=== PATIENT | male | born 1950 | race Caucasian/White ===

== ENCOUNTER → 2017-10-19 08:55 | Outpatient (CLI) | payer MEDICARE, MEDICAID, SELFPAY ==
[2017-10-19 12:33] LABS: Absolute Lymphocyte Count 1.25 X10^3/ul (0.83-4.51); Absolute Neutrophil Count 4.1 X10^3/uL (2.0-7.7); Basophil# 0.02 X10^3/uL; Basophil% 0.3 % (0-1); Eosinophil# 0.11 X10^3/uL; Eosinophils% 1.9 % (0-5); Hematocrit 36.4 % (40-54); Hemoglobin 12.1 g/dl (13.0-16.5); Lymphocyte # 1.25 X10^3/ul (4.0); Lymphocyte % 21.6 % (19-41); Mean Corp Hgb Conc 33.2 g/gl (32-36); Mean Corpuscular Hgb 28.9 pg (27.0-32.0); Mean Corpuscular Volume 86.9 fL (80-94); Mean Platelet Vol. 12.4 fl (6.2-12.0); Monocyte# 0.32 X10^3/uL; Monocyte% 5.5 % (0-10); Neutrophil # 4.08 X10^3/uL (2.7-7.7); Neutrophil % 70.5 % (47-70); Platelet Count 117 K/mm3 (150-450); RBC Distribution Width CV 13.3 % (11.6-14.6); RBC Distribution Width SD 41.2 fl (35.1-43.9); Red Blood Count 4.19 M/mm3 (4.6-6.2); White Blood Count 5.8 K/mm3 (4.4-11.0)
[2017-10-19 12:40] LABS: POSITIVE COUNT NO; POSITIVE DIFFERENTIAL NO; POSITIVE MORPHOLOGY NO
[2017-10-19 12:58] LABS: ALB/GLOB Ratio 1.2 RATIO (0.9-2.4); AST(SGOT) 12 U/L (15-37); Alanine Aminotransfer ALT/SGPT 24 U/L (16-61); Albumin, Serum 3.6 g/dL (3.2-5.0); Alkaline Phosphatase 113 U/L (45-117); Anion Gap 9 (5-15); BUN 12 mg/dL (7-18); BUN/Creat Ratio 14.7 RATIO (10-20); Calcium,Total 8.9 mg/dL (8.5-10.1); Chloride 99 mmol/L (98-107); Creatinine, Serum 0.82 mg/dL (0.70-1.30); EST Glomerular Filtration Rate 100 mL/min (>60); Est Glom Filt Rate - Afr Amer 121 mL/min (>60); Glucose 179 mg/dL (70-110); Potassium 4.3 mmol/L (3.5-5.1); Protein, Total 6.6 g/dL (6.4-8.2); Sodium Level 134 mmol/L (136-145); Thyroid Stim Hormone (TSH) 1.09 uIU/mL (0.358-3.74)
[2017-10-21 07:45] LABS: Hep C Antibodies <0.1 s/co ratio (0.0-0.9)
== END ==
PROVIDERS: Family Provider Family Medicine Geriatric Medicine; PCP Family Medicine Geriatric Medicine; Visit Provider Family Medicine Geriatric Medicine
DX: E11.9 Type 2 diabetes mellitus without complications (principal); I10 Essential (primary) hypertension; Z12.5 Encounter for screening for malignant neoplasm of prostate; Z13.89 Encounter for screening for other disorder
CPT/HCPCS: 36415; 80053; 84153; 84443; 85025; 86803; G0103

== ENCOUNTER → 2017-10-30 07:37 | Outpatient (CLI) | payer MEDICARE, MEDICAID, SELFPAY ==
--- NOTE | 2017-10-30 07:41 | RAD_ITS ---
STUDY: X-RAY - ESOPHAGUS (BARIUM SWALLOW) WITH FLUOROSCOPY REASON FOR EXAM: Male, 67 years old. Dysphagia for solids. TECHNIQUE: 14 view(s) of the esophagus were obtained following swallowing of barium. FLUOROSCOPY TIME (if supplied): (0:47) minutes/seconds COMPARISON: None. FINDINGS: There is no demonstrated esophageal foreign body. There is no demonstrated stricture or mucosal abnormality. Normal gastroesophageal junction, without a demonstrated hiatal hernia. There is dilatation of the entire stomach. Decreased peristaltic activity. The patient ingested a 12 mm tablet of barium without any difficulty. No evidence of gastroesophageal reflux. There is atherosclerotic tortuosity of the aortic arch and descending thoracic aorta. Normal visualized pulmonary parenchyma. There are diffuse degenerative changes of the visualized thoracic spine. RAD/Esophagus Only IMPRESSION: Dilated esophagus. No evidence of obstruction. No evidence of gastroesophageal reflux. Electronically Signed: Manuelito Castaneda MD at 9:01 EST Tel [phone], Service support ,
== END ==
PROVIDERS: Family Provider Family Medicine Geriatric Medicine; PCP Family Medicine Geriatric Medicine; Visit Provider Family Medicine Geriatric Medicine
DX: K22.8 Other specified diseases of esophagus (principal); R13.10 Dysphagia, unspecified
CPT/HCPCS: 74220

== ENCOUNTER → 2017-11-02 13:16 | Outpatient (CLI) | payer MEDICARE, MEDICAID, SELFPAY ==
--- NOTE | 2017-11-02 13:18 | RAD_ITS ---
STUDY: SWALLOWING STUDY REASON FOR EXAM: Male, 67 years old. Dysphagia. TECHNIQUE: The examination was performed with Speech Pathology in attendance. Under fluoroscopic observation, the patient ingested thin barium, thick barium, barium pudding, and barium coated cracker. FLUOROSCOPY TIME: 2:15 minutes/seconds. 1907 fluoroscopic spot images were obtained. RADIOLOGIST INVOLVEMENT: Radiologist was present and providing direct supervision. COMPARISON: None. FINDINGS: The following was observed during swallowing of the various mixtures of barium: Thin Barium: There was no evidence of aspiration or laryngeal penetration. Barium Pudding: There was no evidence of aspiration or laryngeal penetration. Barium Coated Cracker: There was no evidence of aspiration or laryngeal penetration. RAD/Swallowing Function w/Video IMPRESSION: Normal tailored barium swallow study. No evidence of increased risk for aspiration. The swallow study findings were discussed with the patient by the speech pathologist at the conclusion of the examination. Please see speech pathology report for more information and recommendations. Electronically Signed: Manuelito Castaneda MD at 14:05 EST Tel [phone], Service support ,
--- NOTE | 2017-11-02 13:30 | SP.MBSS_ITS ---
PRIMARY / SECONDARY DIAGNOSIS: dysphagia (R13.10) REFERRING PHYSICIAN: Dr. Bob Obrien MD CURRENT DIET: regular textures, thin liquids DENTITION: missing dentition MENTAL STATUS: impaired RESPIRATORY STATUS: O2 via room air PREVIOUS MODIFIED BARIUM SWALLOW STUDY: REASON FOR REFERRAL: Patient is a 67 year old male referred for a modified barium swallow (MBS) study to objectively assess the Patients oropharyngeal swallow function under fluoroscopy secondary to reported dysphagia with solid textures, with Patient reporting sensation of stasis / globus sensation post deglutition of larger bites of solid textures, reports improvement with reduction in bolus size ( habitual large bites and sips reported). 10/30/2017 barium swallow study revealed a dilated esophagus; no evidence of obstruction; no evidence of gastroesophageal reflux. MEDICAL HISTORY: Anxiety, arthritis, depression, type II diabetes mellitus, hearing loss, hyperlipidemia, hypertension, hypothyroidisms, mental retardation unspecified, petit mal intractable epilepsy, seizures, vision loss. STUDY FINDINGS: Patient participated in a Modified Barium Swallow (MBS) study on 11/02/2017. Dr. Castaneda was the radiologist present for this evaluation. This study was recorded in the lateral view and images were sent to PACs for storage. The following consistencies were presented to this patient for analysis of oropharyngeal swallow function: thin liquids, pudding, and a regular textured, Tiffany Doone cookie. Results of the MBS are as follows: PENETRATION / ASPIRATION SCALE (CESPEDES): 1 = does not enter airway 2 = enters airway/above vocal folds/ejected 3 = enters airway/above vocal folds/not ejected 4 = enters airway/contacts vocal folds/ejected 5 = enters airway/contacts vocal folds/not ejected 6 = enters airway/below vocal folds/ejected 7 = enters airway/below vocal folds/not ejected despite effort 8 = enters airway/below vocal folds/no effort PENETRATION / ASPIRATION SCALE (SCORE): Thin liquid - 5 mL tsp.: 1 Thin liquids via straw (sequential swallows): 2 Thin liquids via straw (sequential swallows): 2 Thin liquids via cup (single sip): 1 Thin liquids via cup (single sip): 1 Thin liquids via cup (single sip): 1 Thin liquids via straw (single sip): 1 Thin liquids via straw (single sip): 1 Pudding via spoon: 1 Regular textured cookie: 1 Thin liquids via cup (sequential swallows): 2 IMPRESSION: DIAGNOSIS: mild oropharyngeal dysphagia (R13.12) ORAL PHASE CHARACTERIZED BY: LABIAL SEAL: no labial escape TONGUE CONTROL DURING BOLUS MANIPULATION: cohesive bolus between tongue to palatal seal BOLUS PREPARATION / MASTICATION: slow prolonged chewing/mashing with complete recollection BOLUS TRANSPORT / LINGUAL MOTION: mild repetitive/disorganized tongue motion ORAL RESIDUE: complete oral clearance PHARYNGEAL PHASE CHARACTERIZED BY: INITIATION OF PHARYNGEAL SWALLOW: bolus head at posterior laryngeal surface of epiglottis at first hyoid excursion SOFT PALATE ELEVATION: no bolus between soft palate and pharyngeal wall LARYNGEAL ELEVATION: partial superior movement of thyroid cartilage/partial approximation of arytenoids cartilage to epiglottic petiole ANTERIOR HYOID EXCURSION: partial anterior movement EPIGLOTTIC MOVEMENT: complete epiglottic inversion LARYNGEAL VESTIBULE CLOSURE AT HEIGHT OF SWALLOW: intermittent incomplete laryngeal vestibule closure with narrow column of air/contrast in laryngeal vestibule PHARYNGEAL STRIPPING WAVE: pharyngeal stripping wave present / complete PHARYNGOESOPHAGEAL SEGMENT OPENING: complete distension and complete duration with no obstruction of flow TONGUE BASE RETRACTION: trace column of contrast between tongue base and posterior pharyngeal wall PHARYNGEAL RESIDUE: trace residue within or on pharyngeal structures ESOPHAGEAL PHASE CHARACTERIZED BY: ESOPHAGEAL BOLUS CLEARANCE IN THE UPRIGHT POSITION: complete clearance; esophageal coating EFFECTS OF TREATMENT STRATEGIES ATTEMPTED: Reduced bolus size = effective DIET TEXTURE RECOMMENDATIONS: Will recommend a regular-soft textured, thin liquid diet. COMPENSATORY STRATEGIES RECOMMENDED: Supervision, cut into bite sized pieces, reduced bolus volume, reduced rate of intake, seated upright at 90 degrees during PO intake, remain upright for 30-60 minutes post meal (GERD precaution), medications with liquid chaser. INTERPRETATION OF RESULTS: Patient presents with mild oropharyngeal dysphagia (R13.12) likely associated with baseline intellectual disability. Oral phase primarily marked by mastication inefficiency (mild); and suboptimal lingual control (mild) with noted mild lingual festinations. Pharyngeal phase primarily marked by delayed pharyngeal swallow onset timing resulting in suboptimal bolus location upon swallow onset; and reduced closure of the airway during deglutition attributed to reduced laryngeal elevation and anterior hyoid excursion resulting in poor laryngeal vestibule closure / pressure and higher risk of aspiration during sequential swallows. All deficits ameliorated with bolus volume adjustments. Noted severe kyphosis impacting swallow function, with laryngeal vestibule opening directly inferior to the bolus body upon pharyngeal transit. Reported coughing during solid bolus intake likely associated with baseline difficulty managing bolus volume, would suspect reduction in bolus toughness and volume ( cut into bite sized pieces) would sufficiently address the Patients subjective reports. No aspiration appreciated throughout trials, unable to definitively rule out silent aspiration. RECOMMENDATIONS: Patients caregiver present, able to comprehend and express recommended intake precautions detailed above with sufficient detail to suggest high likelihood of compliance. Provided brief overview of signs and symptoms of aspiration, with recommendations for the Patient / Patients caregiver to further discuss symptoms with PCP. No further skilled speech-language services warranted at this time targeting dysphagia. ADDITIONAL COMMENTS/RECOMMENDATIONS: Results and recommendations were discussed with the Patient immediately following MBS completion, with the Patient verbalizing understanding and agreement with all recommendations and education provided. IMAGE COUNT: [id number] G-CODES: SWALLOWING [id number] Current Status: CI SWALLOWING G8997 Goal Status: CI SWALLOWING G8998 Discharge Status: CI
== END ==
PROVIDERS: Family Provider Family Medicine Geriatric Medicine; PCP Family Medicine Geriatric Medicine; Visit Provider Family Medicine Geriatric Medicine
DX: R13.10 Dysphagia, unspecified (principal)
CPT/HCPCS: 74230; 92611; G8996; G8997; G8998

== ENCOUNTER → 2018-01-05 11:28 | Outpatient (CLI) | payer MEDICARE, MEDICAID, SELFPAY ==
[2018-01-05 13:46] LABS: Anion Gap 9 (5-15); BUN 15 mg/dL (7-18); BUN/Creat Ratio 19.3 RATIO (10-20); Calcium,Total 8.9 mg/dL (8.5-10.1); Chloride 100 mmol/L (98-107); Creatinine, Serum 0.78 mg/dL (0.70-1.30); EST Glomerular Filtration Rate 106 mL/min (>60); Est Glom Filt Rate - Afr Amer 128 mL/min (>60); Glucose 165 mg/dL (74-106); PSA,Total- Diagnostic 0.22 ng/mL (0.0-4.0); Potassium 4.5 mmol/L (3.5-5.1); Sodium Level 138 mmol/L (136-145)
== END ==
PROVIDERS: Family Provider Family Medicine Geriatric Medicine; PCP Family Medicine Geriatric Medicine; Visit Provider Urology
DX: N40.0 Benign prostatic hyperplasia without lower urinary tract symptoms (principal)
CPT/HCPCS: 36415; 80048; 84153

== ENCOUNTER → 2018-01-08 13:38 | Outpatient (CLI) | payer MEDICARE, MEDICAID, SELFPAY ==
--- NOTE | 2018-01-08 13:40 | US_ITS ---
STUDY: RENAL ULTRASOUND - COMPLETE REASON FOR EXAM: Male, 67 years old. BPH TECHNIQUE: Ultrasound evaluation of the kidneys was performed with real-time and static paris-scale imaging. COMPARISON: None. FINDINGS: RIGHT KIDNEY: Normal location of the right kidney, which is normal in size. The right kidney measures 13.5 x 4.5 x 4 cm. There is a normal cortex of the right kidney. The renal cortex measures 1 cm. There is a 3.5 x 2 x 3 cm upper, and a 2.5 x 2.3 x 2.3 lower pole simple appearing cyst. There are no right renal calculi. There is no right hydronephrosis. DISTAL RIGHT URETER: There is non-visualization of the distal right ureter. There is no demonstrated right ureterovesical junction calculus. There is a visualized right ureteral jet. LEFT KIDNEY: Normal location of the left kidney, which is normal in size. The left kidney measures 12 x 5 x 6.5 cm. There is a normal cortex of the left kidney. The renal cortex measures 1.8 cm. There is a left mid renal cyst of 2 x 2.5 x 3.3 cm an inferior pole cyst of 2 x 1.5 x 1.5 cm. There are no left renal calculi. There is no left hydronephrosis. DISTAL LEFT URETER: There is non-visualization of the distal left ureter. There is no demonstrated left ureterovesical junction calculus. There is a visualized left ureteral jet. Prostate measures 3.6 x 3.9 x 3 cm with a volume of 22.5 ml. BLADDER: The distended urinary bladder has a volume of 360 ml. The empty urinary bladder has a volume of 235 ml. There is a normal wall thickness of the distended urinary bladder. There is no demonstrated mass within the urinary bladder. There are no demonstrated bladder calculi. US/Kidney and Bladder IMPRESSION: Bilateral simple appearing renal cysts. Large postvoid residual volume. Prostate of 22 mL volume. Electronically Signed: Chanelle Webb MD at 4:22 EDT , Service support ,
== END ==
PROVIDERS: Family Provider Family Medicine Geriatric Medicine; PCP Family Medicine Geriatric Medicine; Visit Provider Urology
DX: N40.0 Benign prostatic hyperplasia without lower urinary tract symptoms (principal); N28.1 Cyst of kidney, acquired
CPT/HCPCS: 76770

== ENCOUNTER → 2018-01-19 11:17 | Outpatient (CLI) | payer MEDICARE, MEDICAID, SELFPAY ==
--- NOTE | 2018-01-19 11:06 | LES_PTH ---
PATIENT: Simón He LOC: [facility] U#:[id number] AGE/SX: 75/M ROOM: RE01/19/[address]: Dr. Matthias Obrien MD : 1950 BED: DIS: SPEC #: [id number] RECD: 01/19/18 12:48 STATUS: WYATT IGNACIO #: [id number] ARAMIS: 01/19/18 11:[address]: Matthias Obrien Chi DEPT: SURGICAL PATHOLOGY RECD BY: Jarrett Galvan Tissues: Skin of external ear, NOS Procedures: Surgery Specimen Level IV HEADER OPERATION: Not noted PRE-OP DIAGNOSIS: L98.9 TISSUE SUBMITTED: Right ear MICROSCOPIC DIAGNOSIS Right ear, shave biopsy: Basal cell carcinoma. SJ:ernst 01/20/18 MICROSCOPIC DESCRIPTION Slides are reviewed. GROSS DESCRIPTION Received is one container labeled with the patient's name and not further designated. The specimen consists of a piece of butler-white skin measuring 0.9 x 0.7 x 0.1 cm. The specimen is inked and submitted entirely in one cassette. It will be sectioned at the time of embedding. / SJ:rg 01/19/18 TC:0 CPT: 46361 ADDENDUM ADDENDUM ADDENDUM ADDENDUM 03/29/2018 13:49 ADDENDUM 03/29/2018 13:49 ADDENDUM 03/29/2018 13:49 ADDENDUM 03/29/2018 13:49 ADDENDUM 03/29/2018 13:49 The tumor is present at the deep resection margin of the specimen. This case is discussed with Cary Mitchell of [facility] on 03/29/18.
== END ==
PROVIDERS: Family Provider Family Medicine Geriatric Medicine; PCP Family Medicine Geriatric Medicine; Visit Provider Family Medicine Geriatric Medicine
DX: L98.9 Disorder of the skin and subcutaneous tissue, unspecified (principal)
CPT/HCPCS: 88305

== ENCOUNTER → 2018-01-27 16:30 | Outpatient (CLI) | payer MEDICARE, MEDICAID, SELFPAY ==
--- NOTE | 2018-01-27 16:40 | RAD_ITS ---
STUDY: X-RAY - ABDOMEN/PELVIS REASON FOR EXAM: Male, 67 years old. Dark stool TECHNIQUE: AP supine and upright views of the abdomen and pelvis. COMPARISON: None. FINDINGS: Normal visualized lung bases. There is a nonspecific abdominal bowel gas pattern, with mild to moderate gaseous distention of colon. There is scattered stool throughout the colon. No bowel obstruction or free air. The visualized liver, spleen and kidneys are grossly normal in size and morphology. Normal soft tissue structures. There are diffuse degenerative changes of the visualized lumbar spine. RAD/Abd Inc Decub and/or Erect IMPRESSION: Nonspecific abdominal bowel gas pattern. No obstruction. Electronically Signed: Bhavik Silverman DO at 14:11 EDT Tel , Service support ,
== END ==
PROVIDERS: Family Provider Family Medicine Geriatric Medicine; PCP Family Medicine Geriatric Medicine; Visit Provider Family Medicine Geriatric Medicine
DX: K59.00 Constipation, unspecified (principal)
CPT/HCPCS: 74019

== ENCOUNTER 2018-02-10 08:36 | Day surgery (SDC) | payer MEDICARE, MEDICAID, SELFPAY ==
[2018-02-10] VITALS (10 sets, daily range): BP systolic 133–163; BP diastolic 63–88; PULSE 55–67; RESP 16–18; TEMP 36.1–37; O2SAT 92–100; BMI 33.4; BMI 33.5
--- NOTE | 2018-02-10 08:54 | EKG12_ITS ---
Test Reason : PREOP Blood Pressure : / mmHG Vent. Rate : 068 BPM Atrial Rate : 068 BPM P-R Int : 244 ms QRS Dur : 108 ms QT Int : 408 ms P-R-T Axes : 032 -04 030 degrees QTc Int : 433 ms Sinus rhythm with 1st degree A-V block Inferior infarct , age undetermined , cannot be excluded Abnormal ECG Confirmed by JENNIFER LOREDO, JUNIOR ([id number]), editor & co founder ILAN MÁRQUEZ ([id number]) on 02/17/2018 3:20:49 PM Referred By: Rock Lane Confirmed By:JUNIOR RODRIGUEZ MD
[2018-02-10 09:20] LABS: Partial Thromboplast Time 27.8 Seconds (24.1-36.2)
[2018-02-10 09:29] LABS: Hemoglobin A1c 7.9 % (4.2-6.3)
[2018-02-10 09:45] LABS: Bedside Glucose 150 mg/dL (70-110)
--- NOTE | 2018-02-10 11:55 | PROS_PTH ---
PATIENT: Simón He LOC: [facility] [place] U#:[id number] AGE/SX: 67/M ROOM: RE02/10/[address]: Dr. Rock Lane MD : 1950 BED: DIS: 02/11/2018 SPEC #: [id number] RECD: 02/10/18 15:36 STATUS: WYATT IGNACIO #: [id number] ARAMIS: 02/10/18 11:[address]: Rock Lane DEPT: SURGICAL PATHOLOGY RECD BY: Gerber Lopez ENTERED: 02/11/18 08:11 SP TYPE: TURP OTHR DR: MD Dr. Rebecca White DO Dr. Juan Miguel Proano, MD Dr. Tai Chi Kwok, MD Tissues: Prostate, NOS Procedures: Surgery Specimen Level IV Comments: @ Ordering doctor for SUIV edited from to @ by SEAN at 02/11/18 135 @ Submitting doctor edited from to @ by RGOOD at 02/11/18 1353 HEADER OPERATION: Cysto, TUR, prostate, Olympus PRE-OP DIAGNOSIS: BPH with obstruction, urinary retention TISSUE SUBMITTED: Prostate tissue MICROSCOPIC DIAGNOSIS Prostate tissue, TUR: Benign prostatic hyperplasia, glandular and stromal type. Focal chronic inflammation. ISSAC:ernst 02/12/18 MICROSCOPIC DESCRIPTION Slides are reviewed. GROSS DESCRIPTION Received is one container labeled with the patient's name and designated prostate tissue. The specimen consists of multiple irregular fragments of pink-butler, rubbery, soft tissue that in aggregate weigh 7.2 gm and measure in aggregate 5 x 4 x 2 cm. The entire specimen is submitted in seven cassettes. / ISSAC:ernst 02/11/18 TC:5 CPT: 59920
[2018-02-10] MEDS: Cefazolin 2 GM in 0.9% Normal Saline 100 ML IV (12:03)
[2018-02-10] MEDS: Lubricating Jelly 60 GM Tube 30 GM TOPICAL (12:14)
--- NOTE | 2018-02-10 12:34 | PCM.OPRPT ---
Report of Operation Date of Procedure: 02/10/18 Pre-Operative Diagnosis: BPH with obstruction incomplete bladder emptying Post-Operative Diagnosis: Same Surgery/Procedure Performed:: Transurethral resection of the prostate Description of Surgical Findings:: 67-year-old male taken back to the operating room after smooth induction of general anesthesia, penis and testicles were prepped and draped in usual sterile fashion, went into the bladder through the urethra with a 26 [place] continuous flow resectoscope, switch over to the large resectoscope loop, the entire length of the urethra is normal, from the Unruly into the bladder had obstructive tissue mostly on the left side of the prostate, I then switched over to the resectoscope resected the obstructive prostate and the left side little bit on the right side the muscle tissue is coming from the left side after this I had a nice wide open channel from the verumontanum all the way to the bladder neck Ellik out all the chips obtain hemostasis placed a three-way catheter into the bladder and put the bladder on continuous bladder irrigation had a nice wide open channel. Patient anesthetic is currently being reversed. Type of Anesthesia:: General Drains: 3 way dykes - Admit VTE Documentation VTE Present on Admission: No VTE Mechan Device Prophylaxis: SCD's VTE Pharm Prophylaxis ordered?: No Reason prophylaxis not ordered:: Treatment Not Indicated
--- NOTE | 2018-02-10 12:40 | PCM.DC.URO ---
Discharge Diet: Light diet - advance as tolerated Discharge Activity: May Shower Call your doctor if your incision/area has: Continuous Slow Oozing, Sudden Increased Bleeding, Increased Pain/ Swelling, Increased Redness, Foul Smelling Discharge, Swelling at the incision site Suture Line Care: Avoid Pulling/Pushing, Avoid Pinching/Bending Instructions: Transurethral Resection of the Prostate (TURP): Home Recovery Allergies/Adverse Reactions: Allergies amoxicillin [Amoxicillin] Allergy (Verified 02/03/18 12:02) Unknown amoxicillin trihydrate [From Augmentin] Allergy (Verified 02/03/18 12:02) Other Penicillins Allergy (Verified 02/03/18 12:02) Unknown potassium clavulanate [From Augmentin] Allergy (Verified 02/03/18 12:02) Other SEASONAL Allergy (Uncoded 09/23/17 19:01) Unknown Medications to take at Discharge Benztropine [Cogentin] 1 mg PO BID 02/21/14 Finasteride [Proscar] 5 mg PO DAILY 02/21/14 Fluticasone Propionate [Flovent Diskus] 1 sprays NARES BID 02/21/14 Lamotrigine [Lamictal] 200 mg PO DAILY 02/21/14 Levetiracetam [Keppra] 1,500 mg PO BID 02/21/14 Levothyroxine [Synthroid] 175 mcg PO DAILY 02/21/14 Metformin HCl [Glucophage] 1,000 mg PO BIDCM 02/21/14 Risperidone [Risperdal] 3 mg PO BREAKFAST 02/21/14 Duloxetine HCl 30 mg PO DAILY 11/20/16 Polyethylene Glycol 3350 [Miralax] 17 gm PO DAILY 11/20/16 Bethanechol Chloride 25 mg PO TID 05/12/17 Insulin Degludec [Tresiba Flextouch U-100] 20 units SC BREAKFAST 05/12/17 Lamotrigine 400 mg PO QHS 05/12/17 Atorvastatin Calcium [Lipitor] 40 mg PO QHS 02/03/18 Gabapentin [Neurontin] 300 mg PO PRN PRN 02/03/18 Propylene Glycol/Peg 400/Pf [Systane 0.3-0.4% Eye Drops] 1 each OP TID 02/03/18 Risperidone [Risperdal] 4 mg PO QHS 05/16/18 Ropinirole HCl [Requip] 1 mg PO QHS 02/03/18 Ciprofloxacin [Cipro] 500 mg PO BID #20 tab 02/10/18 Docusate Sodium [Colace] 100 mg PO BID #14 cap 02/10/18 The following prescriptions were given: Ciprofloxacin [Cipro] 500 mg PO BID #20 tab Docusate Sodium [Colace] 100 mg PO BID #14 cap Primary Care Physician: Matthias Obrien Chi, MD [Primary Care Provider] - Please Follow Up With: Rock Lane MD When: February 25, 10 am Proposed Discharge Date: 02/11/18
--- NOTE | 2018-02-10 16:10 | PN_ITS ---
Subjective: Pt resting comfortably in bed NAD. Has some mild urethral discomfort with the dykes. Has three way irrigation in. Dykes draining light red. Bag is patterson. No dizziness/lh, SOB, palp, CP. No n/v. Wants to eat. - Physical Exam General: Alert, Oriented x3, Cooperative HEENT: Atraumatic, PERRLA, EOMI, Normocephalic Neck: Supple, No JVD, Negative Carotid Bruits Lungs: Clear to auscultation, Normal air movement Cardiovascular: Regular rate, No murmurs Abdomen: Bowel Sounds Present, Soft, Non Tender Extremities: No edema, Capillary Refill Less than 3 Seconds Skin: No rashes, No breakdown Musculoskeletal: No Tenderness to Palpation of Joints or Extremities Neurological: Cranial nerves II-XII grossly intact Psych/Mental Status: Normal Affect, Appropriate, Alert and oriented to time, place, person, mood and affect Vital Signs Temp Pulse Resp BP Pulse Ox 97.4 F L 55 L 18 163/88 H 100 02/10/18 14:33 02/10/18 14:33 02/10/18 14:33 02/10/18 14:33 02/10/18 14:33 Oxygen Delivery Method Room Air Weight: 114.9 kg Body Mass Index (BMI) 33.5 Finger Stick Blood Glucose 145 Intake and Output for Last 24 Hours 02/08/18 02/09/18 02/10/18 23:59 23:59 23:59 Intake Total 400 / 400 Output Total 600 / 600 Balance -200 / -200 Laboratory Tests Past 24 Hrs 02/10/18 02/10/18 02/10/18 09:04 09:04 09:04 APTT 27.8 Hemoglobin A1c 7.9 H TSH 1.20 POC Glucose 02/10/18 09:34 POC Glucose 150 H Medical Necessity - Tobacco Use Smoking Status: Never smoker Assessment/Plan 1. BPH s/p TURP - Post op d#[address]. Monitor H/H. On Proscar as well. am cbc/bmp 2. MRDD/Shizophrenia/Bipolar - continue home meds. Return to nursing home. 3. Seizure disorder - continue home meds. 4. DMt2 - restart home insulin regimen + SSI. A1c 7.9. 5. Hypothyroidism - continue synthroid 6. HLD - statin 7. HTN - trending high. prn hydralazine. DVT ppx: SCDs This patient was seen by Adrian Reaves PA-C under the supervision of Dr. John
[2018-02-10] MEDS: metFORMIN HCl 1,000 MG Tablet 1000 MG PO (17:05)
[2018-02-10] MEDS: BETHANECHOL CHLORIDE 25 MG TABLET PO ×2 (17:05→21:28)
[2018-02-10] MEDS: 0.9% Normal Saline 1,000 ML 75 ML IV (17:16)
[2018-02-10 17:20] LABS: Bedside Glucose 139 mg/dL (70-110)
[2018-02-10] MEDS: Docusate Sodium 100 MG Capsule PO (21:28)
[2018-02-10] MEDS: Benztropine 2 MG Tablet 1 MG PO (21:28)
[2018-02-10] MEDS: Ciprofloxacin 500 MG Tablet PO (21:28)
[2018-02-10] MEDS: lamoTRIgine 100 MG Tablet 400 MG PO (21:29)
[2018-02-10] MEDS: levETIRAcetam 750 MG Tablet 1500 MG PO (21:29)
[2018-02-10] MEDS: Atorvastatin Calcium 40 MG Tablet PO (21:29)
[2018-02-10] MEDS: Pramipexole Di-HCl 0.5 MG Tablet PO (21:29)
[2018-02-10] MEDS: Fluticasone 0.05% 1 SPRAY NASAL.SRY NASAL (21:30)
[2018-02-10] MEDS: RisperiDONE 2 MG Tablet 4 MG PO (21:32)
[2018-02-10] MEDS: Insulin Lispro 100 UNIT/ML INSULN.PEN SC (21:40)
[2018-02-10 23:16] LABS: Bedside Glucose 202 mg/dL (70-110)
[2018-02-11 02:55] VITALS: BP 129/70; PULSE 78; RESP 18; TEMP 36.5; O2SAT 98
[2018-02-11] MEDS: BETHANECHOL CHLORIDE 25 MG TABLET PO ×2 (05:28→14:10)
[2018-02-11] MEDS: 0.9% Normal Saline 1,000 ML 75 ML IV (05:29)
[2018-02-11] MEDS: Levothyroxine 175 MCG Tablet PO (05:29)
[2018-02-11 05:41] LABS: Absolute Lymphocyte Count 2.02 X10^3/ul (0.83-4.51); Absolute Neutrophil Count 7.4 X10^3/uL (2.0-7.7); Basophil# 0.02 X10^3/uL; Basophil% 0.2 % (0-1); Eosinophil# 0.06 X10^3/uL; Eosinophils% 0.6 % (0-5); Hematocrit 36.9 % (40-54); Hemoglobin 12.1 g/dl (13.0-16.5); Lymphocyte # 2.02 X10^3/ul (4.0); Lymphocyte % 20.1 % (19-41); Mean Corp Hgb Conc 32.8 g/gl (32-36); Mean Corpuscular Hgb 28.3 pg (27.0-32.0); Mean Corpuscular Volume 86.2 fL (80-94); Mean Platelet Vol. 10.9 fl (6.2-12.0); Monocyte# 0.59 X10^3/uL; Monocyte% 5.9 % (0-10); Neutrophil # 7.36 X10^3/uL (2.7-7.7); Platelet Count 173 K/mm3 (150-450); RBC Distribution Width SD 39.9 fl (35.1-43.9); Red Blood Count 4.28 M/mm3 (4.6-6.2); White Blood Count 10.1 K/mm3 (4.4-11.0)
[2018-02-11 05:44] LABS: POSITIVE COUNT NO; POSITIVE DIFFERENTIAL NO; POSITIVE MORPHOLOGY NO
[2018-02-11 06:01] LABS: Anion Gap 8 (5-15); BUN 13 mg/dL (7-18); Calcium,Total 8.4 mg/dL (8.5-10.1); Chloride 104 mmol/L (98-107); Creatinine, Serum 0.76 mg/dL (0.70-1.30); EST Glomerular Filtration Rate 108 mL/min (>60); Est Glom Filt Rate - Afr Amer 131 mL/min (>60); Estimated Creatinine Clearance 79.76 ml/min; Glucose 150 mg/dL (74-106); Potassium 4.2 mmol/L (3.5-5.1); Sodium Level 139 mmol/L (136-145)
[2018-02-11] MEDS: Insulin Lispro 100 UNIT/ML INSULN.PEN SC ×2 (06:26→11:50)
[2018-02-11 06:35] LABS: Bedside Glucose 160 mg/dL (70-110)
--- NOTE | 2018-02-11 07:16 | PCM.PN.BLA ---
Progress Note urine ok s/p turp dykes to be removed if can void ok, home after cath out.
--- NOTE | 2018-02-11 07:21 | PN_ITS ---
Subjective: Hospitalist note: Postoperative day #1, status post TURP All events of the past 24 hours have been reviewed. The patient was seen in consultation by Dr. John on 02/10/2018. He has a past medical history of MRDD and lives in a residential. Past medical history is also positive for obesity, BPH, schizophrenia, bipolar disorder, seizure disorder, diabetes mellitus type 2, hypothyroidism, hypertension and hyperlipidemia. He was admitted to the hospital by Dr. Del Cid on [id number] for TURP. He had no immediate postoperative complications. Afebrile since admission Vital signs stable. 94-100% saturated on room air. Hemoglobin today is 12.1 which is within his baseline. He has normochromic normocytic indices and a normal RDW. Electrolytes are normal and the BUN is 13 with a creatinine of 0.76. Fasting blood sugar today is 150. Hemoglobin A1c was 7.9. TSH is normal at 1.2. He is alert and pleasant and very talkative. He denies pain and also denies SOB , cough, nausea and abdominal pain. - Physical Exam General: Oriented x3, Cooperative, No apparent distress, Well developed, Well nourished HEENT: Atraumatic, PERRLA, EOMI, Normocephalic, - - he has a flakey dermatitis of the face with a erythematous base and no warmth to touch Oral: Moist Mucosa Neck: Supple, Trachea Midline Lungs: Clear to auscultation, No rhonchi, No wheeze, No rales, Diminished - mostly in the bases Cardiovascular: Regular rate, Regular Rhythm, Normal S1, Normal S2, No murmurs, No Ectopic Activity, No rub noted, No Gallop, - - the heart sounds are distant Abdomen: Bowel Sounds Present, Soft, Non Tender, Non-Distended, - - the urine in the dykes tubing is pink Extremities: No clubbing, No cyanosis, No edema, No Calf Tenderness, Diminished Peripheral Pulses Skin: - - flakey dermatitis of the face consistent with seborrheic dermatitis Neurological: Cranial nerves II-XII grossly intact, Neuro grossly intact, - Psych/Mental Status: Appropriate, - - he has mild flight of ideas but is very polite and pleasant, no aggressive behavior Vital Signs Temp Pulse Resp BP Pulse Ox 97.7 F L 78 18 129/70 H 98 02/11/18 02:55 02/11/18 02:55 02/11/18 02:55 02/11/18 02:55 02/11/18 02:55 Oxygen Delivery Method Room Air Weight: 253 lb 4.978 oz Body Mass Index (BMI) 33.5 Finger Stick Blood Glucose 145 Intake and Output for Last 24 Hours 02/09/18 02/10/18 02/11/18 23:59 23:59 23:59 Intake Total 2202 / 2202 1500 / 1500 Output Total 3300 / 3300 1000 / 1000 Balance -1098 / -1098 500 / 500 Laboratory Tests Past 24 Hrs 02/10/18 02/10/18 02/10/18 09:04 09:04 09:04 WBC RBC Hgb Hct MCV MCH MCHC RDW RDW Differential Plt Count MPV Immature Gran % (Auto) Neut % (Auto) Lymph % (Auto) [place] % (Auto) Eos % (Auto) Baso % (Auto) Absolute Neuts (auto) Absolute Lymphs (auto) Total Counted APTT 27.8 Sodium Potassium Chloride Carbon Dioxide Anion Gap BUN Creatinine Estim Creat Clear Calc Est GFR (MDRD) Af Amer Est GFR (MDRD) Non-Af BUN/Creatinine Ratio Glucose Hemoglobin A1c 7.9 H Calcium TSH 1.20 02/11/18 02/11/18 05:20 05:20 WBC 10.1 RBC 4.28 L Hgb 12.1 L Hct 36.9 L MCV 86.2 MCH 28.3 MCHC 32.8 RDW 13.0 RDW Differential 39.9 Plt Count 173 MPV 10.9 Immature Gran % (Auto) 0.200 Neut % (Auto) 73.0 H Lymph % (Auto) 20.1 [place] % (Auto) 5.9 Eos % (Auto) 0.6 Baso % (Auto) 0.2 Absolute Neuts (auto) 7.4 Absolute Lymphs (auto) 2.02 Total Counted Not Reportable APTT Sodium 139 Potassium 4.2 Chloride 104 Carbon Dioxide 27.0 Anion Gap 8 BUN 13 Creatinine 0.76 Estim Creat Clear Calc 79.76 Est GFR (MDRD) Af Amer 131 Est GFR (MDRD) Non-Af 108 BUN/Creatinine Ratio 17.0 Glucose 150 H Hemoglobin A1c Calcium 8.4 L TSH POC Glucose 02/11/18 02/10/18 02/10/18 06:24 21:34 17:06 POC Glucose 160 H 202 H 139 H 02/10/18 09:34 POC Glucose 150 H Medical Necessity - Tobacco Use Smoking Status: Never smoker Assessment/Plan Impressions 1. BPH - S/P TURP 2. BPD/schizophrennia/MRDD 3. seborrheic dermatitis of the face 4. seizure disorder 5. Hypothyroidism 6. HLD 7. HTN - controlled 8. Chronic N/N anemia with a Nl RDW - etiology ? Can be evaluated as an OP. 9. DM II Kenalog cream + Nizoral BID to the facial dermatitis - RX's written OK to DC per medicine if he is able to void when the dykes is discontinued Code Visit Inpatient E&M: 85457 Subs Hosp L2
[2018-02-11 09:46] VITALS: BP 150/78; PULSE 62; RESP 18; TEMP 36.8; O2SAT 93
[2018-02-11] MEDS: Ciprofloxacin 500 MG Tablet PO (09:47)
[2018-02-11] MEDS: Polyethylene Glycol 3350 17 GM PACKET PO (09:48)
[2018-02-11] MEDS: Finasteride 5 MG Tablet PO (09:48)
[2018-02-11] MEDS: levETIRAcetam 750 MG Tablet 1500 MG PO (09:48)
[2018-02-11] MEDS: Fluticasone 0.05% 1 SPRAY NASAL.SRY NASAL (09:49)
[2018-02-11] MEDS: lamoTRIgine 100 MG Tablet 200 MG PO (09:49)
[2018-02-11] MEDS: Docusate Sodium 100 MG Capsule PO (09:50)
[2018-02-11] MEDS: RisperiDONE 1 MG Tablet 3 MG PO (09:50)
[2018-02-11] MEDS: DULoxetine Hcl 30 MG Capsule PO (09:50)
[2018-02-11] MEDS: Benztropine 2 MG Tablet 1 MG PO (09:51)
[2018-02-11] MEDS: metFORMIN HCl 1,000 MG Tablet 1000 MG PO (09:51)
[2018-02-11] MEDS: Pantoprazole Sodium 40 MG Tablet PO (09:52)
[2018-02-11 12:00] LABS: Bedside Glucose 176 mg/dL (70-110)
[2018-02-11 14:11] VITALS: BP 115/59; PULSE 72; RESP 16; TEMP 36.7; O2SAT 96
== END 2018-02-11 16:15 | disposition home or self-care (01) ==
LOC: SDC 08:42 → AC 08:55 → MS3 02-11 06:33
PROVIDERS: Internal Medicine; Physician Assistant; Family Provider Family Medicine Geriatric Medicine; PCP Family Medicine Geriatric Medicine; Visit Provider Urology
PROC: (CPT 52601; principal; 2018-02-10 11:45)
DX: N40.1 Benign prostatic hyperplasia with lower urinary tract symptoms (principal); N13.8 Other obstructive and reflux uropathy; R39.14 Feeling of incomplete bladder emptying; R33.8 Other retention of urine; K58.9 Irritable bowel syndrome, unspecified; K21.9 Gastro-esophageal reflux disease without esophagitis; E11.9 Type 2 diabetes mellitus without complications; F31.9 Bipolar disorder, unspecified; F41.9 Anxiety disorder, unspecified; F20.9 Schizophrenia, unspecified; G40.A19 Absence epileptic syndrome, intractable, without status epilepticus; I10 Essential (primary) hypertension; E78.5 Hyperlipidemia, unspecified; E03.9 Hypothyroidism, unspecified; I95.1 Orthostatic hypotension; F79 Unspecified intellectual disabilities; M19.90 Unspecified osteoarthritis, unspecified site; L21.9 Seborrheic dermatitis, unspecified; D64.89 Other specified anemias; E66.9 Obesity, unspecified; Z68.31 Body mass index [BMI] 31.0-31.9, adult; Z79.84 Long term (current) use of oral hypoglycemic drugs; Z79.4 Long term (current) use of insulin; Z79.899 Other long term (current) drug therapy
CPT/HCPCS: 00914; 52601; 36415; 80048; 82962; 83036; 84443; 85025; 85730; 88305; 93005; 97802; J7030; J7120; J2405

== ENCOUNTER → 2018-02-16 16:45 | Outpatient (CLI) | payer MEDICARE, MEDICAID, SELFPAY ==
--- NOTE | 2018-02-16 16:42 | LES_PTH ---
PATIENT: Simón He LOC: [facility] U#:[id number] AGE/SX: 75/M ROOM: RE02/16/[address]: Dr. Matthias Obrien MD : [id number] BED: DIS: SPEC #: [id number] RECD: 02/16/18 17:14 STATUS: WYATT IGNACIO #: [id number] ARAMIS: 02/16/18 16:[address]: Matthias Obrien Chi DEPT: SURGICAL PATHOLOGY RECD BY: Jarrett Galvan Tissues: Skin of buttock, NOS Procedures: Special Stain Group I Surgery Specimen Level IV GMS Stain (control) HEADER OPERATION: Not noted PRE-OP DIAGNOSIS: L81.9 TISSUE SUBMITTED: buttock MICROSCOPIC DIAGNOSIS Buttock crack, biopsy: Piece of skin with focal ulceration, associated inflammation, pseudoepitheliomatous hyperplasia and reactive changes. Negative for malignancy. Special stain for fungi is negative for organisms; matched control is appropriate. SJ:ernst 02/18/18 MICROSCOPIC DESCRIPTION Slides are reviewed. GROSS DESCRIPTION Received in fixative is one container labeled with the patient's name and designated buttock crack. The specimen consists of an irregular piece of butler-white skin measuring 3.2 x 1 x 0.1 cm. The specimen is inked, serially sectioned and submitted entirely in two cassettes. / SJ:ernst 02/17/18 TC:2 CPT: 92140, 40589
== END ==
PROVIDERS: Family Provider Family Medicine Geriatric Medicine; PCP Family Medicine Geriatric Medicine; Visit Provider Family Medicine Geriatric Medicine
DX: L81.9 Disorder of pigmentation, unspecified (principal)
CPT/HCPCS: 88305; 88312

== ENCOUNTER → 2018-04-14 10:32 | Outpatient (CLI) | payer MEDICARE, MEDICAID, SELFPAY ==
--- NOTE | 2018-04-14 10:41 | RAD_ITS ---
STUDY: X-RAY - ABDOMEN/PELVIS REASON FOR EXAM: Male, 67 years old. Abdominal pain and distention TECHNIQUE: 4 AP views COMPARISON: None. FINDINGS: Normal visualized lung bases. There is an unremarkable bowel gas pattern. There is no demonstrated free abdominal air. The visualized liver, spleen and kidneys are grossly normal in size and morphology. Normal soft tissue structures. There are diffuse degenerative changes of the visualized lumbar spine. RAD/Abdomen Single View IMPRESSION: No acute findings Electronically Signed: All Cantrell MD at 11:30 EDT , Service support ,
[2018-04-14 12:30] LABS: Absolute Lymphocyte Count 1.26 X10^3/ul (0.83-4.51); Absolute Neutrophil Count 4.6 X10^3/uL (2.0-7.7); Basophil# 0.02 X10^3/uL; Basophil% 0.3 % (0-1); Eosinophil# 0.07 X10^3/uL; Eosinophils% 1.1 % (0-5); Hematocrit 36.7 % (40-54); Hemoglobin 12.5 g/dl (13.0-16.5); Lymphocyte # 1.26 X10^3/ul (4.0); Lymphocyte % 19.7 % (19-41); Mean Corp Hgb Conc 34.1 g/gl (32-36); Mean Corpuscular Hgb 29.1 pg (27.0-32.0); Mean Corpuscular Volume 85.3 fL (80-94); Mean Platelet Vol. 11.9 fl (6.2-12.0); Monocyte# 0.41 X10^3/uL; Monocyte% 6.4 % (0-10); Neutrophil # 4.61 X10^3/uL (2.7-7.7); Neutrophil % 72.3 % (47-70); Platelet Count 157 K/mm3 (150-450); RBC Distribution Width CV 13.3 % (11.6-14.6); RBC Distribution Width SD 40.7 fl (35.1-43.9); White Blood Count 6.4 K/mm3 (4.4-11.0)
[2018-04-14 12:36] LABS: POSITIVE COUNT NO; POSITIVE DIFFERENTIAL NO; POSITIVE MORPHOLOGY NO
[2018-04-14 12:55] LABS: Vitamin D,25 Hydroxy 22.5 ng/mL (29.95-100.01)
[2018-04-14 13:07] LABS: ALB/GLOB Ratio 1.1 RATIO (0.9-2.4); AST(SGOT) 14 U/L (15-37); Alanine Aminotransfer ALT/SGPT 19 U/L (16-61); Albumin, Serum 3.6 g/dL (3.2-5.0); Alkaline Phosphatase 115 U/L (45-117); Anion Gap 10 (5-15); BUN 12 mg/dL (7-18); BUN/Creat Ratio 13.6 RATIO (10-20); Calcium,Total 8.9 mg/dL (8.5-10.1); Chloride 100 mmol/L (98-107); Creatinine, Serum 0.88 mg/dL (0.70-1.30); EST Glomerular Filtration Rate 91 mL/min (>60); Est Glom Filt Rate - Afr Amer 110 mL/min (>60); Globulin 3.2 g/dL (2.2-4.2); Glucose 209 mg/dL (74-106); Potassium 4.5 mmol/L (3.5-5.1); Protein, Total 6.8 g/dL (6.4-8.2); Sodium Level 137 mmol/L (136-145); Thyroid Stim Hormone (TSH) 1.51 uIU/mL (0.358-3.74)
== END ==
PROVIDERS: Family Provider Family Medicine Geriatric Medicine; PCP Family Medicine Geriatric Medicine; Visit Provider Family Medicine Geriatric Medicine
DX: K59.00 Constipation, unspecified (principal)
CPT/HCPCS: 36415; 74018; 80053; 82306; 84443; 85025

== ENCOUNTER → 2018-06-08 10:34 | Outpatient (CLI) | payer MEDICARE, MEDICAID, SELFPAY ==
[2018-06-08 12:13] LABS: Creatinine, Serum 0.88 mg/dL (0.70-1.30); EST Glomerular Filtration Rate 91 mL/min (>60); Est Glom Filt Rate - Afr Amer 111 mL/min (>60)
== END ==
PROVIDERS: Family Provider Family Medicine Geriatric Medicine; PCP Family Medicine Geriatric Medicine; Visit Provider Nurse Practitioner Adult Health
DX: R33.9 Retention of urine, unspecified (principal)
CPT/HCPCS: 36415; 82565

== ENCOUNTER → 2018-06-12 09:20 | Outpatient (CLI) | payer MEDICARE, MEDICAID, SELFPAY ==
--- NOTE | 2018-06-12 09:23 | US_ITS ---
STUDY: RENAL ULTRASOUND - COMPLETE REASON FOR EXAM: Male, 68 years old. Urinary retention TECHNIQUE: Ultrasound evaluation of the kidneys was performed with real-time and static paris-scale imaging. COMPARISON: January 08, 2018 FINDINGS: RIGHT KIDNEY: Normal location of the right kidney, which is normal in size. The right kidney measures 13.2 cm in length. There is a normal cortex of the right kidney. There are 2 simple right renal cyst measuring 3.4 x 2.7 x 3.3 cm and 2.8 x 2.2 x 2.5 cm. There are no right renal calculi. There is no right hydronephrosis. DISTAL RIGHT URETER: There is a visualized right ureteral jet. LEFT KIDNEY: Normal location of the left kidney, which is normal in size. The left kidney measures 12.4 cm in length. There is a normal cortex of the left kidney. There is a simple 3.3 x 2.9 x 3.0 cm left renal cyst. There are no left renal calculi. There is no left hydronephrosis. DISTAL LEFT URETER: There is a visualized left ureteral jet. BLADDER: The distended urinary bladder has a volume of 144.2 ml. The empty urinary bladder has a volume of 139.2 ml. There is a normal wall thickness of the distended urinary bladder. There is no demonstrated mass within the urinary bladder. There are no demonstrated bladder calculi. US/Kidney and Bladder IMPRESSION: No hydronephrosis. Moderate post void residual. Electronically Signed: Deisy Aguilera MD at 22:51 EDT Tel , Service support ,
== END ==
PROVIDERS: Family Provider Family Medicine Geriatric Medicine; PCP Family Medicine Geriatric Medicine; Visit Provider Nurse Practitioner Adult Health
DX: R33.9 Retention of urine, unspecified (principal)
CPT/HCPCS: 76770

== ENCOUNTER → 2018-08-02 09:17 | Outpatient (CLI) | payer MEDICARE, MEDICAID, SELFPAY ==
--- NOTE | 2018-08-02 09:30 | RAD_ITS ---
STUDY: X-RAY - ABDOMEN/PELVIS REASON FOR EXAM: Male, 68 years old. History of constipation. TECHNIQUE: AP supine and upright views of the abdomen and pelvis. COMPARISON: None. FINDINGS: Normal visualized lung bases. There is an unremarkable bowel gas pattern. There is no demonstrated free abdominal air. The visualized liver, spleen and kidneys are grossly normal in size and morphology. Normal soft tissue structures. There are diffuse degenerative changes of the visualized lumbar spine. RAD/Abd Inc Decub and/or Erect IMPRESSION: Nonspecific bowel gas pattern. Electronically Signed: Manuelito Castaneda MD at 10:24 EST Tel [phone], Service support ,
[2018-08-02 12:40] LABS: Absolute Lymphocyte Count 1.49 X10^3/ul (0.83-4.51); Absolute Neutrophil Count 5.1 X10^3/uL (2.0-7.7); Basophil# 0.02 X10^3/uL; Basophil% 0.3 % (0-1); Eosinophil# 0.08 X10^3/uL; Eosinophils% 1.1 % (0-5); Hematocrit 36.6 % (40-54); Hemoglobin 12.3 g/dl (13.0-16.5); Lymphocyte # 1.49 X10^3/ul (4.0); Lymphocyte % 20.7 % (19-41); Mean Corp Hgb Conc 33.6 g/gl (32-36); Mean Corpuscular Hgb 28.9 pg (27.0-32.0); Mean Corpuscular Volume 86.1 fL (80-94); Mean Platelet Vol. 11.2 fl (6.2-12.0); Monocyte# 0.45 X10^3/uL; Monocyte% 6.2 % (0-10); Neutrophil # 5.13 X10^3/uL (2.7-7.7); Neutrophil % 71.1 % (47-70); Platelet Count 154 K/mm3 (150-450); RBC Distribution Width CV 13.3 % (11.6-14.6); RBC Distribution Width SD 41.1 fl (35.1-43.9); Red Blood Count 4.25 M/mm3 (4.6-6.2); White Blood Count 7.2 K/mm3 (4.4-11.0)
[2018-08-02 12:41] LABS: POSITIVE COUNT NO; POSITIVE DIFFERENTIAL NO; POSITIVE MORPHOLOGY NO
[2018-08-02 12:56] LABS: Anion Gap 7 (5-15); BUN 12 mg/dL (7-18); BUN/Creat Ratio 13.9 RATIO (10-20); Calcium,Total 8.8 mg/dL (8.5-10.1); Chloride 97 mmol/L (98-107); Creatinine, Serum 0.86 mg/dL (0.70-1.30); EST Glomerular Filtration Rate 94 mL/min (>60); Est Glom Filt Rate - Afr Amer 114 mL/min (>60); Glucose 184 mg/dL (74-106); Potassium 4.8 mmol/L (3.5-5.1); Sodium Level 134 mmol/L (136-145)
== END ==
PROVIDERS: Family Provider Family Medicine Geriatric Medicine; PCP Family Medicine Geriatric Medicine; Visit Provider Family Medicine Geriatric Medicine
DX: K59.00 Constipation, unspecified (principal); R10.9 Unspecified abdominal pain
CPT/HCPCS: 36415; 74019; 80048; 85025

== ENCOUNTER → 2018-08-05 09:47 | Outpatient (CLI) | payer MEDICARE, MEDICAID, SELFPAY | LOC: LABSPEC 09:48 → POLAB3 09:57 | PROVIDERS: Family Provider Family Medicine Geriatric Medicine; PCP Family Medicine Geriatric Medicine; Visit Provider Family Medicine Geriatric Medicine | DX: R19.7 Diarrhea, unspecified (principal) | CPT/HCPCS: 82274; 83630; 87177; 87209; 87493; 87506 ==

== ENCOUNTER → 2018-11-04 14:59 | Outpatient (CLI) | payer MEDICARE, MEDICAID, SELFPAY ==
[2018-11-04 17:01] LABS: Absolute Lymphocyte Count 1.68 X10^3/ul (0.83-4.51); Absolute Neutrophil Count 5.7 X10^3/uL (2.0-7.7); Basophil# 0.03 X10^3/uL; Basophil% 0.4 % (0-1); Eosinophil# 0.07 X10^3/uL; Eosinophils% 0.9 % (0-5); Hematocrit 39.7 % (40-54); Hemoglobin 12.6 g/dl (13.0-16.5); Lymphocyte # 1.68 X10^3/ul (4.0); Lymphocyte % 21.2 % (19-41); Mean Corp Hgb Conc 31.7 g/gl (32-36); Mean Corpuscular Hgb 28.5 pg (27.0-32.0); Mean Corpuscular Volume 89.8 fL (80-94); Mean Platelet Vol. 11.6 fl (6.2-12.0); Monocyte# 0.43 X10^3/uL; Monocyte% 5.4 % (0-10); Neutrophil # 5.68 X10^3/uL (2.7-7.7); Neutrophil % 71.7 % (47-70); Platelet Count 182 K/mm3 (150-450); RBC Distribution Width CV 13.9 % (11.6-14.6); RBC Distribution Width SD 45.4 fl (35.1-43.9); Red Blood Count 4.42 M/mm3 (4.6-6.2); White Blood Count 7.9 K/mm3 (4.4-11.0)
[2018-11-04 17:02] LABS: POSITIVE COUNT NO; POSITIVE DIFFERENTIAL NO; POSITIVE MORPHOLOGY NO
[2018-11-04 17:17] LABS: Vitamin D,25 Hydroxy 16.5 ng/mL (29.95-100.01)
[2018-11-04 17:34] LABS: ALB/GLOB Ratio 1.1 RATIO (0.9-2.4); AST(SGOT) 11 U/L (15-37); Alanine Aminotransfer ALT/SGPT 23 U/L (16-61); Albumin, Serum 3.6 g/dL (3.2-5.0); Alkaline Phosphatase 129 U/L (45-117); Anion Gap 10 (5-15); BUN 10 mg/dL (7-18); BUN/Creat Ratio 11.4 RATIO (10-20); Chloride 102 mmol/L (98-107); Creatinine, Serum 0.88 mg/dL (0.70-1.30); EST Glomerular Filtration Rate 92 mL/min (>60); Est Glom Filt Rate - Afr Amer 111 mL/min (>60); Globulin 3.3 g/dL (2.2-4.2); Glucose 177 mg/dL (74-106); PSA,Total - Annual Screen 0.12 ng/mL (0.00-4.00); Potassium 4.8 mmol/L (3.5-5.1); Protein, Total 6.9 g/dL (6.4-8.2); Sodium Level 138 mmol/L (136-145); Thyroid Stim Hormone (TSH) 1.31 uIU/mL (0.358-3.74)
== END ==
PROVIDERS: Family Provider Family Medicine Geriatric Medicine; PCP Family Medicine Geriatric Medicine; Visit Provider Family Medicine Geriatric Medicine
DX: E11.9 Type 2 diabetes mellitus without complications (principal); E55.9 Vitamin D deficiency, unspecified; I10 Essential (primary) hypertension; Z12.5 Encounter for screening for malignant neoplasm of prostate
CPT/HCPCS: 36415; 80053; 82306; 84153; 84443; 85025; G0103

== ENCOUNTER 2018-11-23 20:49 | Inpatient (IN) | payer MEDICARE, MEDICAID, SELFPAY ==
[2018-11-23 20:50] VITALS: BP 57/39; PULSE 89; RESP 20; TEMP 36.5; BMI 31.4
[2018-11-23 21:01] VITALS: BP 66/49; PULSE 88; RESP 18; O2SAT 94
--- NOTE | 2018-11-23 21:02 | EKG12_ITS ---
Test Reason : Blood Pressure : / mmHG Vent. Rate : 079 BPM Atrial Rate : 079 BPM P-R Int : 244 ms QRS Dur : 104 ms QT Int : 396 ms P-R-T Axes : 015 -01 020 degrees QTc Int : 454 ms Sinus rhythm with 1st degree A-V block with Premature supraventricular complexes Septal infarct , age undetermined Inferior infarct , age undetermined Abnormal ECG Confirmed by DANAE SOLORIO ([id number]), senior editor ILAN MÁRQUEZ ([id number]) on 11/26/2018 1:13:39 PM Referred By: Confirmed By:DANAE SOLORIO
--- NOTE | 2018-11-23 21:02 | CT_ITS ---
STUDY: CT BRAIN WITHOUT CONTRAST REASON FOR EXAM: Male, 68 years old. Seizure. RADIATION DOSAGE (If Supplied By Facility): CTDIvol = ( 44.99 ) mGy, DLP = ( 880.47 ) mGycm TECHNIQUE: Transaxial CT imaging of the brain was performed without administration of intravenous contrast material. Individualized dose optimization techniques were used for this CT. COMPARISON: None. FINDINGS: There is no acute bleed or infarct. There are normal white matter tracts. The ventricles are normal in configuration. There is no hydrocephalus. The visualized paranasal sinuses are clear. The mastoid air cells are well aerated. There is no skull fracture. There are multiple subcentimeter radiodense foreign bodies noted in the right forehead, right cheek and right eye. CT/Brain/Head without Contrast IMPRESSION: No acute intracranial abnormality. Multiple subcentimeter radiodense foreign bodies noted in the right forehead, right cheek and right eye. Electronically Signed: Aime Houser, at 22:02 EST Tel , Service support ,
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
--- NOTE | 2018-11-23 21:10 | RAD_ITS ---
STUDY: X-RAY CHEST REASON FOR EXAM: Male, 68 years old. Chest pain TECHNIQUE: Frontal view of the chest COMPARISON: None. FINDINGS: The lungs are clear. There are no pleural effusions. There is no pneumothorax. The heart is enlarged. The visualized osseous structures are within normal limits. RAD/Chest 1 View (Portable) IMPRESSION: Cardiomegaly. Clear lungs. Electronically Signed: Aime Houser, at 21:35 EST Tel , Service support ,
[2018-11-23] MEDS: 0.9% Normal Saline 1,000 ML 1000 ML IV ×2 (21:15)
[2018-11-23 21:32] LABS: Absolute Lymphocyte Count 1.27 X10^3/ul (0.83-4.51); Absolute Neutrophil Count 14.8 X10^3/uL (2.0-7.7); Basophil# 0.01 X10^3/uL; Basophil% 0.1 % (0-1); Hemoglobin 12.3 g/dl (13.0-16.5); Lymphocyte # 1.27 X10^3/ul (4.0); Lymphocyte % 7.5 % (19-41); Mean Corp Hgb Conc 34.2 g/gl (32-36); Mean Corpuscular Hgb 28.8 pg (27.0-32.0); Mean Corpuscular Volume 84.3 fL (80-94); Mean Platelet Vol. 11.9 fl (6.2-12.0); Monocyte% 5.3 % (0-10); Neutrophil % 86.9 % (47-70); Platelet Count 195 K/mm3 (150-450); RBC Distribution Width CV 13.7 % (11.6-14.6); RBC Distribution Width SD 41.8 fl (35.1-43.9); Red Blood Count 4.27 M/mm3 (4.6-6.2)
[2018-11-23 21:33] LABS: POSITIVE COUNT NO; POSITIVE DIFFERENTIAL NO; POSITIVE MORPHOLOGY NO
[2018-11-23 21:36] LABS: International Normalized Ratio 1.3; Prothrombin Time (Protime)PT. 15.8 SECONDS (11.7-14.9)
[2018-11-23 21:37] LABS: Partial Thromboplast Time 28.6 Seconds (24.1-36.2)
[2018-11-23 21:57] LABS: Anion Gap 12 (5-15); BUN 23 mg/dL (7-18); BUN/Creat Ratio 13.9 RATIO (10-20); Chloride 98 mmol/L (98-107); Creatinine, Serum 1.65 mg/dL (0.70-1.30); EST Glomerular Filtration Rate 44 mL/min (>60); Est Glom Filt Rate - Afr Amer 54 mL/min (>60); Estimated Creatinine Clearance 53.34 ml/min; Glucose 82 mg/dL (74-106); Potassium 4.4 mmol/L (3.5-5.1); Sodium Level 130 mmol/L (136-145)
--- NOTE | 2018-11-23 21:57 | ED.RN ---
LAB RESULTED TROP 0.821, LACTIC 5.2
[2018-11-23 21:58] LABS: Lactic Acid 5.2 mmol/L (0.4-2.0)
[2018-11-23 22:23] VITALS: BP 117/62; PULSE 78; RESP 22; O2SAT 95
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
[2018-11-23 23:20] LABS: CPK Total, Creatine Kinase 24578 U/L (39-308)
[2018-11-24] VITALS (36 sets, daily range): BP systolic 92–133; BP diastolic 54–79; PULSE 70–88; RESP 13–25; TEMP 36.6–36.9; O2SAT 94–100; BMI 31.1
--- NOTE | 2018-11-24 00:03 | HP.PCM_ITS ---
History of Present Illness Date of Admission: 11/24/18 Chief Complaint: Found on floor at home. The patient is a 68 year old M with past medical history of diabetes, hypertension, seizure disorder, anxiety, depression, schizophrenia and hypothyroidism. He was admitted through the ED on 11/24/2018 with a complaint of having been found on the floor at home by his home health he has 8 usually come in the evening and stay with him overnight. We last saw him this morning when they were living at around 9 and was fine. They recurred this evening after he was face down. Patient could not see how long he had been on the floor or how come he fell. All he could say was that he fell and could not see whether he had had a seizure or not. Patient was unable to give much history otherwise was quite confused and rambling during my review. He was brought to the ED where initial blood pressure was 57/39 with heart rate of 89 and respiratory rate of 20. EKG done showed sinus rhythm of 79 and chest x-ray showed cardiomegaly. CT of the head showed no acute intracranial abnormality. CT of the spine showed no fracture and CBC showed white cell count of 17 and hemoglobin of 12.3. Troponin was 0.81 and lactic acid was 5.2. Creatinine was 1.65 with a baseline of around 0.88. He was started on IV fluids and blood pressure subsequently improved and was started on bicarb drip on account of creatinine kinase being 24,578. He is been admitted to the ICU to be managed for hypovolemic shock, rhabdomyolysis and non-STEMI. [] Past Medical History Past Medical History (Chronic Problems): Chronic Problems Prostatism (Chronic) Hypothyroidism (Chronic) Hyperlipidemia (Chronic) BPH (benign prostatic hyperplasia) (Chronic) Diabetes mellitus (Chronic) Hypertension (Chronic) Allergies amoxicillin [Amoxicillin] Allergy (Verified 11/23/18 20:56) Unknown amoxicillin trihydrate [From Augmentin] Allergy (Verified 11/23/18 20:56) Other Penicillins Allergy (Verified 11/23/18 20:56) Unknown potassium clavulanate [From Augmentin] Allergy (Verified 11/23/18 20:56) Other SEASONAL Allergy (Uncoded 11/23/18 20:56) Unknown Home Medications: Ambulatory Orders Medication Instructions Recorded Benztropine [Cogentin] 1 mg PO BID 02/21/14 Finasteride [Proscar] 5 mg PO DAILY 02/21/14 Fluticasone Propionate [Flovent 1 sprays NARES BID 02/21/14 Diskus] Lamotrigine [Lamictal] 200 mg PO DAILY 02/21/14 Levetiracetam [Keppra] 1,500 mg PO BID 02/21/14 Levothyroxine [Synthroid] 175 mcg PO DAILY 02/21/14 Metformin HCl [Glucophage] 1,000 mg PO BIDCM 02/21/14 Risperidone [Risperdal] 3 mg PO BREAKFAST 02/21/14 Duloxetine HCl 30 mg PO DAILY 11/20/16 Lamotrigine 400 mg PO QHS 05/12/17 Atorvastatin Calcium [Lipitor] 40 mg PO QHS 02/03/18 Gabapentin [Neurontin] 300 mg PO DAILY PRN PRN 02/03/18 Risperidone [Risperdal] 4 mg PO QHS 02/03/18 Ropinirole HCl [Requip] 1 mg PO QHS 02/03/18 Triamcinolone 0.1% Cream [Kenalog] 1 applic TOPICAL BID #1 tube 02/11/18 Insulin Degludec [Tresiba 25 unit SQ DAILY 11/23/18 Flextouch U-100] Propylene Glycol/Peg 400/Pf 1 each OP TID 11/23/18 [Systane 0.3-0.4% Eye Drops] Surgical History: - - The patient is undergone urethral dilatation in the past, and has been under the care of a local urologist. Psychiatric History: Anxiety, Depression, Schizophrenia Lives: Alone Smoking Status: Never smoker Alcohol: None Drugs: None - *Family History Maternal History Items: - - Specifics about the patient's family history are not known. Review of Systems Unable to obtain accurate/complete ROS d/t: patient being quite confused and dysarthric VTE Information - Inpt Only VTE Present on Admission: No VTE Pharm Prophylaxis ordered?: Yes - Physical Exam General: Alert, Cooperative, Confused, Disoriented HEENT: Atraumatic, PERRLA, EOMI, Normocephalic Oral: Dry Mucosa Neck: Supple, No JVD, Negative Carotid Bruits Lungs: - - decreased breath sounds bibasally, with mild crackles bibasally. Cardiovascular: Regular rate, Regular Rhythm, Normal S1, Normal S2, No murmurs Abdomen: Bowel Sounds Present, Soft, Non Tender, Non-Distended, No Hepato- splenomegaly Extremities: No clubbing, No cyanosis, No edema, Capillary Refill Less than 3 Seconds Skin: - - erythema over forehead and nose as well as cheeks. Has erythematous excoriations over both knees, abdomen and chest. Musculoskeletal: Tenderness - mild tenderness on palpation of knees Lymphatic: No Cervical, Supraclavicular, or Inguinal Adenopathy Neurological: Cranial nerves II-XII grossly intact, Motor Exam 5/5 strength throughout Psych/Mental Status: - - confused Vital Signs Temp Pulse Resp BP Pulse Ox 97.7 F L 78 22 H 117/62 95 11/23/18 20:50 11/23/18 22:23 11/23/18 22:23 11/23/18 22:23 11/23/18 22:23 Oxygen Flow Rate (L/min) 2 Oxygen Delivery Method Room Air Weight: 257 lb 15.053 oz Body Mass Index (BMI) 31.4 Finger Stick Blood Glucose 145 Laboratory Tests Past 24 Hrs 11/23/18 11/23/18 11/23/18 21:10 21:10 21:10 WBC 17.0 H RBC 4.27 L Hgb 12.3 L Hct 36.0 L MCV 84.3 MCH 28.8 MCHC 34.2 RDW 13.7 RDW Differential 41.8 Plt Count 195 MPV 11.9 Immature Gran % (Auto) 0.200 Neut % (Auto) 86.9 H Lymph % (Auto) 7.5 L [place] % (Auto) 5.3 Eos % (Auto) 0.0 Baso % (Auto) 0.1 Absolute Neuts (auto) 14.8 H Absolute Lymphs (auto) 1.27 Total Counted Not Reportable PT 15.8 H INR 1.3 APTT 28.6 Sodium 130 L Potassium 4.4 Chloride 98 Carbon Dioxide 20.0 L Anion Gap 12 BUN 23 H Creatinine 1.65 H Estim Creat Clear Calc 53.34 Est GFR (MDRD) Af Amer 54 L Est GFR (MDRD) Non-Af 44 L BUN/Creatinine Ratio 13.9 Glucose 82 Lactic Acid Calcium 8.0 L Total Creatine Kinase Troponin I 0.821 H* 11/23/18 11/23/18 21:10 21:10 WBC RBC Hgb Hct MCV MCH MCHC RDW RDW Differential Plt Count MPV Immature Gran % (Auto) Neut % (Auto) Lymph % (Auto) [place] % (Auto) Eos % (Auto) Baso % (Auto) Absolute Neuts (auto) Absolute Lymphs (auto) Total Counted PT INR APTT Sodium Potassium Chloride Carbon Dioxide Anion Gap BUN Creatinine Estim Creat Clear Calc Est GFR (MDRD) Af Amer Est GFR (MDRD) Non-Af BUN/Creatinine Ratio Glucose Lactic Acid 5.2 H* Calcium Total Creatine Kinase 94446 H Troponin I Diagnostic Data Brain CT 11/23/18 21:02 IMPRESSION: No acute intracranial abnormality. Multiple subcentimeter radiodense foreign bodies noted in the right forehead, right cheek and right eye. Electronically Signed: Aime Houser, at 22:02 EST Tel , Service support , Cervical Spine CT 11/23/18 21:03 IMPRESSION: No fracture or dislocation in the cervical spine. Bony fusion of C6/C7. Electronically Signed: Aime Houser, at 22:07 EST Tel , Service support , Chest X-Ray 11/23/18 21:10 IMPRESSION: Cardiomegaly. Clear lungs. Electronically Signed: Aime Houser, at 21:35 EST Tel , Service support , Assessment/Plan All Active Problems Metatarsal fracture (Acute) 68 y/o admitted after being found down in his house 1. Rhabdomyolysis due to fall * CPK was >24,000 * was hypotensive on admission as well. * hydrate with IVF NS @ 250cc/hr, and monitor CPK * admit to ICU for closer monitoring overnight; can likely be transferred out of the Unit by tomorrow if he remains stable * 2. Elevated troponins * initial troponin is 0.821; could be due to demand ischemia as his BP was in 50s systolic on admission * EKG showed no acute ST changes. * Cycle troponin. * Cardiology consult. * Aspirin 81 mg daily. * 3. Lactic acidosis likely due to hypovolemia. * Lactic acid was 5.2 on admission and likely due to hypotension that patient experienced. * Hydrate with IV fluids and monitor. Repeat lactic acid. * 4. Positive SIRS criteria * Respiratory rate was 22 when he came in and white cell count is 17. By this criteria, patient meets criteria for sepsis. * However there is no obvious source of infection and elevated white cell count is likely reactive. * will hold off on antibiotics for now and monitor * 5. Acute metabolic encephalopathy * May have been due to his seizures patient has a history of seizure disorder. Cannot see how long he was on the ground for. Has dysarthria and is quite confused. * CT of the head was negative for any acute intracranial pathology. * Will consult neurology in light of seizure disorder. Patient may benefit from MRI. * Will get EEG. * 6. AK I likely prerenal due to hypovolemia and rhabdomyolysis * Creatinine was 1.65. Baseline is~ 0.88. Will hydrate. If patient does not respond to hydration, then will benefit for further extensive workup. * 7. Hyponatremia: Na is 130; likely due to hypotonic hypovolemia from low blood pressure. Will hydrate with IVf and monitor 8. Diabetes mellitus: On receiving 25 units daily. Insulin sliding scale. Accu-Cheks AC at bedtime. 9. Hypothyroidism: On Synthroid. 10. Seizure disorder: On Keppra and lamotrigine. 11. Schizophrenia: On Risperdal. 12. BPH: On finasteride. DVT prophylaxis: Heparin. Code Visit Inpatient E&M: 72952 Init Hosp L3
[2018-11-24 01:21] LABS: Reflex Lactate? Y
[2018-11-24 01:54] LABS: Lactic Acid 3.7 mmol/L (0.4-2.0)
[2018-11-24] MEDS: Enoxaparin 30 MG/0.3 ML Syringe SC ×2 (02:38→08:05)
[2018-11-24 05:11] LABS: Bedside Glucose 86 mg/dL (70-110)
[2018-11-24 05:20] LABS: Absolute Lymphocyte Count 1.04 X10^3/ul (0.83-4.51); Absolute Neutrophil Count 12.6 X10^3/uL (2.0-7.7); Basophil# 0.01 X10^3/uL; Basophil% 0.1 % (0-1); Hematocrit 33.3 % (40-54); Hemoglobin 11.4 g/dl (13.0-16.5); Lymphocyte # 1.04 X10^3/ul (4.0); Lymphocyte % 6.9 % (19-41); Mean Corp Hgb Conc 34.2 g/gl (32-36); Mean Corpuscular Hgb 28.7 pg (27.0-32.0); Mean Corpuscular Volume 83.9 fL (80-94); Mean Platelet Vol. 11.3 fl (6.2-12.0); Monocyte# 1.27 X10^3/uL; Monocyte% 8.5 % (0-10); Neutrophil # 12.63 X10^3/uL (2.7-7.7); Neutrophil % 84.3 % (47-70); POSITIVE COUNT NO; POSITIVE DIFFERENTIAL NO; POSITIVE MORPHOLOGY NO; Platelet Count 159 K/mm3 (150-450); RBC Distribution Width CV 13.8 % (11.6-14.6); RBC Distribution Width SD 41.8 fl (35.1-43.9); Red Blood Count 3.97 M/mm3 (4.6-6.2)
[2018-11-24 05:39] LABS: Anion Gap 12 (5-15); BUN 29 mg/dL (7-18); BUN/Creat Ratio 15.2 RATIO (10-20); Calcium,Total 7.4 mg/dL (8.5-10.1); Chloride 94 mmol/L (98-107); Creatinine, Serum 1.91 mg/dL (0.70-1.30); EST Glomerular Filtration Rate 38 mL/min (>60); Est Glom Filt Rate - Afr Amer 45 mL/min (>60); Estimated Creatinine Clearance 46.08 ml/min; Glucose 280 mg/dL (74-106); Potassium 4.1 mmol/L (3.5-5.1); Sodium Level 129 mmol/L (136-145)
[2018-11-24 05:42] LABS: Color, Urine Amber (Yellow); Glucose, Dipstick Normal (Normal); Ketone-Dipstick 5 mg/dl (Negative); Leukocyte Esterase-Dipstick 25 /ul (Negative); Nitrite-Dipstick Negative (Negative); Occult Blood-Urine 250 /ul (Negative); Protein-Dipstick 100 mg/dl (Negative); Urine Bilirubin Dipstick Negative (Negative); Urine Clarity Sl. Cloudy (Clear); Urine Urobilinogen Normal (Normal)
[2018-11-24 05:47] LABS: Amorphous Sediment 1+; Bacteria RARE /hpf (None Seen); Mucous, Urine 1+ /hpf (<or=2+); Red Blood Cells-Urine 0-5 SEEN /hpf (0-5); Squamous Epithelial Cells - UA 0-5 SEEN /hpf (0-5); White Blood Cells 0-5 SEEN /hpf (0-5)
--- NOTE | 2018-11-24 05:55 | ECHOCS_ITS ---
Reason For Study: Dyspnea/SOB Procedure This was a 2D Doppler, Color Flow transthoracic echocardiogram. Technically difficult study due to patient body habitus. Exam performed portable in ICU/CCU. Left Ventricle Mildly dilated left ventricle. Mild concentric left ventricular hypertrophy. The estimated ejection fraction is 50 %. Normal diastology for age. There is mild global hypokinesis of the left ventricle. Right Ventricle Normal size and thickness. Atria The left atrium is mildly enlarged. Normal atrial septum. Mitral Valve The mitral valve is structurally normal. No prolapse or stenosis seen. Tricuspid Valve Normal tricuspid valve. Unable to estimate RV systolic pressure due to inadequate jet, pulmonary artery pressure probably normal. Aortic Valve Normal aortic valve. Trisinus/trileaflet aortic valve. Pulmonic Valve The pulmonic valve is not well visualized. Great Vessels Normal aortic root. Normal arch. Pericardium/Pleural No pericardial effusion. Medication Diluted definity 3ml given slow IV push to enhance endocardial definition. MMode/2D Measurements & Calculations LVIDd: 5.1 cm IVSd: 1.5 cm Ao root diam: 4.2 cm LVIDs: 4.0 cm LVPWd: 1.3 cm FS: 21.1 % LVAd ap4: 42.4 cm2 SV(MOD-sp4): 74.2 ml SV(sp4-el): 80.2 ml EDV(MOD-sp4): 164.4 ml EDV(sp4-el): 167.7 ml LVAs ap4: 28.8 cm2 ESV(MOD-sp4): 90.2 ml ESV(sp4-el): 87.5 ml EF(MOD-sp4): 45.1 % EF(sp4-el): 47.8 % RA A4 area: 23.6 cm2 Time Measurements MV dec time: 0.25 sec Doppler Measurements & Calculations MV E max tin: 76.6 cm/sec Med Peak E' Tin: 6.2 cm/sec MV V2 max: 89.6 cm/sec MV A max tin: 54.7 cm/sec E/E' med: 12.4 MV max P.2 mmHg MV E/A: 1.4 MV V2 mean: 60.4 cm/sec MV mean P.6 mmHg MV V2 VTI: 27.9 cm MV P1/2t max tin: 89.6 cm/sec Ao V2 max: 136.8 cm/sec LV V1 max: 105.5 cm/sec MV P1/2t: 74.2 msec Ao max P.5 mmHg LV V1 max P.5 mmHg Ao V2 mean: 88.9 cm/sec LV V1 mean P.1 mmHg MV dec slope: 353.3 cm/sec2 Ao mean P.7 mmHg LV V1 mean: 66.4 cm/sec MVA(P1/2t): 3.0 cm2 Ao V2 VTI: 24.1 cm LV V1 VTI: 19.5 cm PA V2 max: 123.3 cm/sec Interpretation Summary Mildly dilated left ventricle. The estimated ejection fraction is 50 %. Normal diastology for age. There is mild global hypokinesis of the left ventricle. The left atrium is mildly enlarged. Unable to estimate RV systolic pressure due to inadequate jet, pulmonary artery pressure probably normal. The study was technically difficult. Contrast injection was performed. Ordering Physician: Emerald Sumner Referring Physician: Matthias Obrien Chi Performed By: Clark Cortes RCS
[2018-11-24] MEDS: 0.9% NaCl Peripheral Flush Adult/Peds IV ×2 (06:21→06:45)
[2018-11-24] MEDS: Levothyroxine 175 MCG Tablet PO (06:21)
[2018-11-24] MEDS: 0.9% Normal Saline 1,000 ML 250 ML IV ×5 (06:21→22:17)
[2018-11-24 06:35] LABS: Cholesterol 75 mg/dL (200); High Density Lipoprotein 52 mg/dL; Triglycerides 51 mg/dL; Very Low Density Lipoprotein 10 mg/dL (5-40)
[2018-11-24] MEDS: Glycerin/Hypromellose/PEG400 15 ml Bottle 1 DRP EACH EYE ×3 (06:44→21:09)
--- NOTE | 2018-11-24 07:02 | PCM.CON.CC ---
Reason for Consult Date of Consultation: 11/24/18 Reason for Consultation: Rhabdo, lactic acidosis History of Present Illness: The patient is a 68-year-old male, with a history as outlined below, who presented to the emergency department on November 23 after being found down on his floor by his home health aide. The patient was reported to have been seen at 9 AM in his normal state of health. He was discovered down at approximately 7 PM. The patient's medical history is significant for MRDD, for which she resides in a [facility], BPH, schizophrenia, bipolar disorder, unspecified seizure disorder and hypothyroidism. On presentation to the emergency department, the patient was noted to be hypotensive with a blood pressure of 57/39. He was initially reported to be maintaining appropriate oxygen saturations on room air. Laboratory evaluation revealed elevated white blood cell count to 17,000. INR was noted to be 1.3. Chemistry profile was notable for a sodium of 130, bicarbonate of 20 and creatinine of 1.65, which is an acute increase from his baseline. The patient's serum lactate was elevated to 5.2. Total CK was increased to 25,000. Initial troponin was increased to 0.821. CT head revealed no acute intracranial abnormality. CT C-spine revealed no acute fracture or dislocation. Plain film chest x-ray revealed no acute cardiopulmonary process. Blood cultures were obtained and the patient received supplemental IV fluid hydration. His hemodynamics improved with volume expansion. The patient was subsequently transferred to the medical intensive care unit for ongoing management. The patient has remained afebrile overnight. His hemodynamics have improved over the course of the night. He is currently maintaining appropriate oxygen saturations on room air. His creatinine has increased to 1.91 this morning. Past Medical History Past Medical History (Chronic Problems): Chronic Problems Prostatism (Chronic) Hypothyroidism (Chronic) Hyperlipidemia (Chronic) BPH (benign prostatic hyperplasia) (Chronic) Diabetes mellitus (Chronic) Hypertension (Chronic) Allergies amoxicillin [Amoxicillin] Allergy (Verified 11/23/18 20:56) Unknown amoxicillin trihydrate [From Augmentin] Allergy (Verified 11/23/18 20:56) Other Penicillins Allergy (Verified 11/23/18 20:56) Unknown potassium clavulanate [From Augmentin] Allergy (Verified 11/23/18 20:56) Other SEASONAL Allergy (Uncoded 11/23/18 20:56) Unknown Home Medications: Ambulatory Orders Medication Instructions Recorded Benztropine [Cogentin] 1 mg PO BID 02/21/14 Finasteride [Proscar] 5 mg PO DAILY 02/21/14 Fluticasone Propionate [Flovent 1 sprays NARES BID 02/21/14 Diskus] Lamotrigine [Lamictal] 200 mg PO DAILY 02/21/14 Levetiracetam [Keppra] 1,500 mg PO BID 02/21/14 Levothyroxine [Synthroid] 175 mcg PO DAILY 02/21/14 Metformin HCl [Glucophage] 1,000 mg PO BIDCM 02/21/14 Risperidone [Risperdal] 3 mg PO BREAKFAST 02/21/14 Duloxetine HCl 30 mg PO DAILY 11/20/16 Lamotrigine 400 mg PO QHS 05/12/17 Atorvastatin Calcium [Lipitor] 40 mg PO QHS 02/03/18 Gabapentin [Neurontin] 300 mg PO DAILY PRN PRN 02/03/18 Risperidone [Risperdal] 4 mg PO QHS 02/03/18 Ropinirole HCl [Requip] 1 mg PO QHS 02/03/18 Triamcinolone 0.1% Cream [Kenalog] 1 applic TOPICAL BID #1 tube 02/11/18 Insulin Degludec [Tresiba 25 unit SQ DAILY 11/23/18 Flextouch U-100] Propylene Glycol/Peg 400/Pf 1 each OP TID 11/23/18 [Systane 0.3-0.4% Eye Drops] Surgical History: - - The patient is undergone urethral dilatation in the past, and has been under the care of a local urologist. Psychiatric History: Anxiety, Depression, Schizophrenia Lives: Alone Smoking Status: Never smoker Alcohol: None Drugs: None - *Family History Maternal History Items: - - Specifics about the patient's family history are not known. Review of Systems Constitutional: Reports: Weakness. Denies: Chills, Fever Eyes: Denies: Blurred vision, Double vision HEENT: Denies: Head Aches, Sinus Congestion, Sinus Drainage Cardiovascular: Denies: Chest Pain, Palpitations Respiratory: Denies: Cough, Shortness of breath at rest, Sputum production Gastrointestinal: Denies: Abdominal Pain, Nausea, Vomiting Genitourinary: Denies: Dysuria Musculoskeletal: Reports: Arm Pain Skin: Reports: Rash, Skin Changes Neurological: Reports: Slurred speech Psychiatric: Denies: Anxiety, Depression, Homicidal Ideations, Suicidal Ideations Hematologic/ Lymphatic: Denies: Easy Bruising, Easy Bleeding Patient Problems: Active and Suspected Problems MARQUIS (acute kidney injury) (Acute) Objective: The patient's most recent lab work, culture data and imaging studies have all been personally reviewed. - Physical Exam General: Alert, Cooperative, No apparent distress HEENT: PERRLA, Normocephalic Oral: No Gingival or Mucosal Lesions/ Ulcerations Neck: Supple, No Nodes, Trachea Midline Lungs: No rhonchi, No wheeze, No rales, Diminished Cardiovascular: Regular rate, Regular Rhythm, Normal S1, Normal S2, No murmurs Abdomen: Bowel Sounds Present, Soft, Non Tender, Obese Extremities: No clubbing, No cyanosis, No edema Skin: - - Diffusely scattered erythema with excoriations over her trunk and extremities. Musculoskeletal: No Muscle Wasting Lymphatic: No Cervical, Supraclavicular, or Inguinal Adenopathy Neurological: Neuro grossly intact Vital Signs Temp Pulse Resp BP Pulse Ox 36.6 C 79 18 118/63 97 11/24/18 02:21 11/24/18 06:00 11/24/18 06:00 11/24/18 06:00 11/24/18 06:00 Oxygen Flow Rate (L/min) 2 Oxygen Delivery Method Room Air Weight: 255 lb 11.779 oz Body Mass Index (BMI) 31.1 Finger Stick Blood Glucose 145 Intake and Output for Last 24 Hours 11/22/18 11/23/18 11/24/18 23:59 23:59 23:59 Intake Total 1844 / 1844 Output Total 500 / 500 Balance 1344 / 1344 Laboratory Tests Past 24 Hrs 11/23/18 11/23/18 11/23/18 21:10 21:10 21:10 WBC 17.0 H RBC 4.27 L Hgb 12.3 L Hct 36.0 L MCV 84.3 MCH 28.8 MCHC 34.2 RDW 13.7 RDW Differential 41.8 Plt Count 195 MPV 11.9 Immature Gran % (Auto) 0.200 Neut % (Auto) 86.9 H Lymph % (Auto) 7.5 L [place] % (Auto) 5.3 Eos % (Auto) 0.0 Baso % (Auto) 0.1 Absolute Neuts (auto) 14.8 H Absolute Lymphs (auto) 1.27 Total Counted Not Reportable PT 15.8 H INR 1.3 APTT 28.6 Sodium 130 L Potassium 4.4 Chloride 98 Carbon Dioxide 20.0 L Anion Gap 12 BUN 23 H Creatinine 1.65 H Estim Creat Clear Calc 53.34 Est GFR (MDRD) Af Amer 54 L Est GFR (MDRD) Non-Af 44 L BUN/Creatinine Ratio 13.9 Glucose 82 Serum Osmolality Lactic Acid Calcium 8.0 L Total Creatine Kinase Troponin I 0.821 H* Triglycerides Cholesterol LDL Cholesterol VLDL Cholesterol HDL Cholesterol Urine Color Urine Clarity Urine pH Ur Specific [place] Urine Protein Urine Glucose (UA) Urine Ketones Urine Occult Blood Urine Nitrite Urine Bilirubin Urine Urobilinogen Ur Leukocyte Esterase Urine RBC Urine WBC Ur Squamous Epith Cells Amorphous Sediment Urine Bacteria Urine Mucus 11/23/18 11/23/18 11/24/18 21:10 21:10 01:10 WBC RBC Hgb Hct MCV MCH MCHC RDW RDW Differential Plt Count MPV Immature Gran % (Auto) Neut % (Auto) Lymph % (Auto) [place] % (Auto) Eos % (Auto) Baso % (Auto) Absolute Neuts (auto) Absolute Lymphs (auto) Total Counted PT INR APTT Sodium Potassium Chloride Carbon Dioxide Anion Gap BUN Creatinine Estim Creat Clear Calc Est GFR (MDRD) Af Amer Est GFR (MDRD) Non-Af BUN/Creatinine Ratio Glucose Serum Osmolality Lactic Acid 5.2 H* 3.7 H Calcium Total Creatine Kinase 98700 H Troponin I Triglycerides Cholesterol LDL Cholesterol VLDL Cholesterol HDL Cholesterol Urine Color Urine Clarity Urine pH Ur Specific [place] Urine Protein Urine Glucose (UA) Urine Ketones Urine Occult Blood Urine Nitrite Urine Bilirubin Urine Urobilinogen Ur Leukocyte Esterase Urine RBC Urine WBC Ur Squamous Epith Cells Amorphous Sediment Urine Bacteria Urine Mucus 11/24/18 11/24/18 11/24/18 01:50 05:00 05:00 WBC 15.0 H RBC 3.97 L Hgb 11.4 L Hct 33.3 L MCV 83.9 MCH 28.7 MCHC 34.2 RDW 13.8 RDW Differential 41.8 Plt Count 159 MPV 11.3 Immature Gran % (Auto) 0.200 Neut % (Auto) 84.3 H Lymph % (Auto) 6.9 L [place] % (Auto) 8.5 Eos % (Auto) 0.0 Baso % (Auto) 0.1 Absolute Neuts (auto) 12.6 H Absolute Lymphs (auto) 1.04 Total Counted Not Reportable PT INR APTT Sodium Potassium Chloride Carbon Dioxide Anion Gap BUN Creatinine Estim Creat Clear Calc Est GFR (MDRD) Af Amer Est GFR (MDRD) Non-Af BUN/Creatinine Ratio Glucose Serum Osmolality Lactic Acid Calcium Total Creatine Kinase Troponin I 0.741 H* Triglycerides Cholesterol LDL Cholesterol VLDL Cholesterol HDL Cholesterol Urine Color [place] Urine Clarity Sl. Cloudy Urine pH 5.0 Ur Specific [place] 1.020 Urine Protein 100 H Urine Glucose (UA) Normal Urine Ketones 5 H Urine Occult Blood 250 H Urine Nitrite Negative Urine Bilirubin Negative Urine Urobilinogen Normal Ur Leukocyte Esterase 25 H Urine RBC 0-5 SEEN Urine WBC 0-5 SEEN Ur Squamous Epith Cells 0-5 SEEN Amorphous Sediment 1+ Urine Bacteria RARE Urine Mucus 1+ 11/24/18 11/24/18 11/24/18 05:00 05:00 05:00 WBC RBC Hgb Hct MCV MCH MCHC RDW RDW Differential Plt Count MPV Immature Gran % (Auto) Neut % (Auto) Lymph % (Auto) [place] % (Auto) Eos % (Auto) Baso % (Auto) Absolute Neuts (auto) Absolute Lymphs (auto) Total Counted PT INR APTT Sodium 129 L Potassium 4.1 Chloride 94 L Carbon Dioxide 23.0 Anion Gap 12 BUN 29 H Creatinine 1.91 H Estim Creat Clear Calc 46.08 Est GFR (MDRD) Af Amer 45 L Est GFR (MDRD) Non-Af 38 L BUN/Creatinine Ratio 15.2 Glucose 280 H Serum Osmolality Lactic Acid Calcium 7.4 L Total Creatine Kinase 15184 H Troponin I 0.628 H* Triglycerides Cholesterol LDL Cholesterol VLDL Cholesterol HDL Cholesterol Urine Color Urine Clarity Urine pH Ur Specific [place] Urine Protein Urine Glucose (UA) Urine Ketones Urine Occult Blood Urine Nitrite Urine Bilirubin Urine Urobilinogen Ur Leukocyte Esterase Urine RBC Urine WBC Ur Squamous Epith Cells Amorphous Sediment Urine Bacteria Urine Mucus 11/24/18 11/24/18 11/24/18 05:00 05:00 06:45 WBC RBC Hgb Hct MCV MCH MCHC RDW RDW Differential Plt Count MPV Immature Gran % (Auto) Neut % (Auto) Lymph % (Auto) [place] % (Auto) Eos % (Auto) Baso % (Auto) Absolute Neuts (auto) Absolute Lymphs (auto) Total Counted PT INR APTT Sodium Potassium Chloride Carbon Dioxide Anion Gap BUN Creatinine Estim Creat Clear Calc Est GFR (MDRD) Af Amer Est GFR (MDRD) Non-Af BUN/Creatinine Ratio Glucose Serum Osmolality Pending Lactic Acid 3.0 H Calcium Total Creatine Kinase Troponin I Triglycerides 51 Cholesterol 75 LDL Cholesterol 13 VLDL Cholesterol 10 HDL Cholesterol 52 Urine Color Urine Clarity Urine pH Ur Specific [place] Urine Protein Urine Glucose (UA) Urine Ketones Urine Occult Blood Urine Nitrite Urine Bilirubin Urine Urobilinogen Ur Leukocyte Esterase Urine RBC Urine WBC Ur Squamous Epith Cells Amorphous Sediment Urine Bacteria Urine Mucus POC Glucose 11/24/18 01:34 POC Glucose 86 Clinical Impression(s) from Imaging Studies Brain CT 11/23/18 21:02 IMPRESSION: No acute intracranial abnormality. Multiple subcentimeter radiodense foreign bodies noted in the right forehead, right cheek and right eye. Electronically Signed: Aime Houser, at 22:02 EST Tel , Service support , Cervical Spine CT 11/23/18 21:03 IMPRESSION: No fracture or dislocation in the cervical spine. Bony fusion of C6/C7. Electronically Signed: Aime Houser, at 22:07 EST Tel , Service support , Chest X-Ray 11/23/18 21:10 IMPRESSION: Cardiomegaly. Clear lungs. Electronically Signed: Aime Houser, at 21:35 EST Tel , Service support , Assessment/Plan Active and Suspected Problems MARQUIS (acute kidney injury) (Acute) RECOMMENDATIONS: 1. Continue current supportive measures with aggressive supplemental IV fluid hydration. 2. Start Lasix per nephrology recommendations 3. Check TSH and free T4 levels. 4. Recheck CK level in the morning. 5. Await echocardiogram. 6. Obtain speech therapy evaluation. IMPRESSIONS: 1. Fluid responsive hypotension The patient presented to the emergency department in a hypotensive state, which responded avidly to the use of supplemental IV fluid hydration. The patient remains hemodynamically stable at this time. There was never a requirement for vasopressors. 2. Acute kidney injury, likely secondary to rhabdomyolysis Nephrology is currently following. Continue aggressive supplemental IV fluid hydration and IV diuretics per recommendations. Continue to monitor urine output. No current indication for renal replacement therapy. Recheck CK level in the morning. 3. Elevated troponins Potentially related to demand ischemia in the setting of #1 and 2. Cardiology is currently following. Echocardiogram is currently pending. 4. Baseline MRDD/schizophrenia/bipolar disorder/unspecified seizure disorder/hypothyroidism Complicates care, management, recovery and prognosis. Likely okay to continue home medications. Recheck TSH and free T4 levels. Will need to discuss further with the patient has been compliant with his antiepileptic medications, as a seizure episode would also account for the patient being found down with an elevated CK level. This note was generated with [employer] dictation software. It may contain incorrect words, spelling, and punctuation that were not noted in checking the note before signing. Code Visit Inpatient E&M: 42160 Init Hosp L3
[2018-11-24] MEDS: Budesonide Respules 0.5 MG/2 ML AMPUL.NEB. INHALATION (07:05)
--- NOTE | 2018-11-24 07:09 | CON.PCM_ITS ---
Reason for Consult Date of Consultation: 11/24/18 Reason for Consultation: Rhabdo, lactic acidosis History of Present Illness: The patient is a 68-year-old male, with a history as outlined below, who presented to the emergency department on November 23 after being found down on his floor by his home health aide. The patient was reported to have been seen at 9 AM in his normal state of health. He was discovered down at approximately 7 PM. The patient's medical history is significant for MRDD, for which she resides in a prison, BPH, schizophrenia, bipolar disorder, unspecified seizure disorder and hypothyroidism. On presentation to the emergency department, the patient was noted to be hypotensive with a blood pressure of 57/39. He was initially reported to be maintaining appropriate oxygen saturations on room air. Laboratory evaluation revealed elevated white blood cell count to 17,000. INR was noted to be 1.3. Chemistry profile was notable for a sodium of 130, bicarbonate of 20 and creatinine of 1.65, which is an acute increase from his baseline. The patient's serum lactate was elevated to 5.2. Total CK was increased to 25,000. Initial troponin was increased to 0.821. CT head revealed no acute intracranial abnormality. CT C-spine revealed no acute fracture or dislocation. Plain film chest x-ray revealed no acute cardiopulmonary process. Blood cultures were obtained and the patient received supplemental IV fluid hydration. His hemodynamics improved with volume expansion. The patient was subsequently transferred to the medical intensive care unit for ongoing management. The patient has remained afebrile overnight. His hemodynamics have improved over the course of the night. He is currently maintaining appropriate oxygen saturations on room air. His creatinine has increased to 1.91 this morning. Past Medical History Past Medical History (Chronic Problems): Chronic Problems Prostatism (Chronic) Hypothyroidism (Chronic) Hyperlipidemia (Chronic) BPH (benign prostatic hyperplasia) (Chronic) Diabetes mellitus (Chronic) Hypertension (Chronic) Allergies amoxicillin [Amoxicillin] Allergy (Verified 11/23/18 20:56) Unknown amoxicillin trihydrate [From Augmentin] Allergy (Verified 11/23/18 20:56) Other Penicillins Allergy (Verified 11/23/18 20:56) Unknown potassium clavulanate [From Augmentin] Allergy (Verified 11/23/18 20:56) Other SEASONAL Allergy (Uncoded 11/23/18 20:56) Unknown Home Medications: Ambulatory Orders Medication Instructions Recorded Benztropine [Cogentin] 1 mg PO BID 02/21/14 Finasteride [Proscar] 5 mg PO DAILY 02/21/14 Fluticasone Propionate [Flovent 1 sprays NARES BID 02/21/14 Diskus] Lamotrigine [Lamictal] 200 mg PO DAILY 02/21/14 Levetiracetam [Keppra] 1,500 mg PO BID 02/21/14 Levothyroxine [Synthroid] 175 mcg PO DAILY 02/21/14 Metformin HCl [Glucophage] 1,000 mg PO BIDCM 02/21/14 Risperidone [Risperdal] 3 mg PO BREAKFAST 02/21/14 Duloxetine HCl 30 mg PO DAILY 11/20/16 Lamotrigine 400 mg PO QHS 05/12/17 Atorvastatin Calcium [Lipitor] 40 mg PO QHS 02/03/18 Gabapentin [Neurontin] 300 mg PO DAILY PRN PRN 02/03/18 Risperidone [Risperdal] 4 mg PO QHS 02/03/18 Ropinirole HCl [Requip] 1 mg PO QHS 02/03/18 Triamcinolone 0.1% Cream [Kenalog] 1 applic TOPICAL BID #1 tube 02/11/18 Insulin Degludec [Tresiba 25 unit SQ DAILY 11/23/18 Flextouch U-100] Propylene Glycol/Peg 400/Pf 1 each OP TID 11/23/18 [Systane 0.3-0.4% Eye Drops] Surgical History: - - The patient is undergone urethral dilatation in the past, and has been under the care of a local urologist. Psychiatric History: Anxiety, Depression, Schizophrenia Lives: Alone Smoking Status: Never smoker Alcohol: None Drugs: None - *Family History Maternal History Items: - - Specifics about the patient's family history are not known. Review of Systems Constitutional: Reports: Weakness. Denies: Chills, Fever Eyes: Denies: Blurred vision, Double vision HEENT: Denies: Head Aches, Sinus Congestion, Sinus Drainage Cardiovascular: Denies: Chest Pain, Palpitations Respiratory: Denies: Cough, Shortness of breath at rest, Sputum production Gastrointestinal: Denies: Abdominal Pain, Nausea, Vomiting Genitourinary: Denies: Dysuria Musculoskeletal: Reports: Arm Pain Skin: Reports: Rash, Skin Changes Neurological: Reports: Slurred speech Psychiatric: Denies: Anxiety, Depression, Homicidal Ideations, Suicidal Ideations Hematologic/ Lymphatic: Denies: Easy Bruising, Easy Bleeding Patient Problems: Active and Suspected Problems MARQUIS (acute kidney injury) (Acute) Objective: The patient's most recent lab work, culture data and imaging studies have all been personally reviewed. - Physical Exam General: Alert, Cooperative, No apparent distress HEENT: PERRLA, Normocephalic Oral: No Gingival or Mucosal Lesions/ Ulcerations Neck: Supple, No Nodes, Trachea Midline Lungs: No rhonchi, No wheeze, No rales, Diminished Cardiovascular: Regular rate, Regular Rhythm, Normal S1, Normal S2, No murmurs Abdomen: Bowel Sounds Present, Soft, Non Tender, Obese Extremities: No clubbing, No cyanosis, No edema Skin: - - Diffusely scattered erythema with excoriations over her trunk and e xtremities. Musculoskeletal: No Muscle Wasting Lymphatic: No Cervical, Supraclavicular, or Inguinal Adenopathy Neurological: Neuro grossly intact Vital Signs Temp Pulse Resp BP Pulse Ox 36.6 C 79 18 118/63 97 11/24/18 02:21 11/24/18 06:00 11/24/18 06:00 11/24/18 06:00 11/24/18 06:00 Oxygen Flow Rate (L/min) 2 Oxygen Delivery Method Room Air Weight: 255 lb 11.779 oz Body Mass Index (BMI) 31.1 Finger Stick Blood Glucose 145 Intake and Output for Last 24 Hours 11/22/18 11/23/18 11/24/18 23:59 23:59 23:59 Intake Total 1844 / 1844 Output Total 500 / 500 Balance 1344 / 1344 Laboratory Tests Past 24 Hrs 11/23/18 11/23/18 11/23/18 21:10 21:10 21:10 WBC 17.0 H RBC 4.27 L Hgb 12.3 L Hct 36.0 L MCV 84.3 MCH 28.8 MCHC 34.2 RDW 13.7 RDW Differential 41.8 Plt Count 195 MPV 11.9 Immature Gran % (Auto) 0.200 Neut % (Auto) 86.9 H Lymph % (Auto) 7.5 L [place] % (Auto) 5.3 Eos % (Auto) 0.0 Baso % (Auto) 0.1 Absolute Neuts (auto) 14.8 H Absolute Lymphs (auto) 1.27 Total Counted Not Reportable PT 15.8 H INR 1.3 APTT 28.6 Sodium 130 L Potassium 4.4 Chloride 98 Carbon Dioxide 20.0 L Anion Gap 12 BUN 23 H Creatinine 1.65 H Estim Creat Clear Calc 53.34 Est GFR (MDRD) Af Amer 54 L Est GFR (MDRD) Non-Af 44 L BUN/Creatinine Ratio 13.9 Glucose 82 Serum Osmolality Lactic Acid Calcium 8.0 L Total Creatine Kinase Troponin I 0.821 H* Triglycerides Cholesterol LDL Cholesterol VLDL Cholesterol HDL Cholesterol Urine Color Urine Clarity Urine pH Ur Specific [place] Urine Protein Urine Glucose (UA) Urine Ketones Urine Occult Blood Urine Nitrite Urine Bilirubin Urine Urobilinogen Ur Leukocyte Esterase Urine RBC Urine WBC Ur Squamous Epith Cells Amorphous Sediment Urine Bacteria Urine Mucus 11/23/18 11/23/18 11/24/18 21:10 21:10 01:10 WBC RBC Hgb Hct MCV MCH MCHC RDW RDW Differential Plt Count MPV Immature Gran % (Auto) Neut % (Auto) Lymph % (Auto) [place] % (Auto) Eos % (Auto) Baso % (Auto) Absolute Neuts (auto) Absolute Lymphs (auto) Total Counted PT INR APTT Sodium Potassium Chloride Carbon Dioxide Anion Gap BUN Creatinine Estim Creat Clear Calc Est GFR (MDRD) Af Amer Est GFR (MDRD) Non-Af BUN/Creatinine Ratio Glucose Serum Osmolality Lactic Acid 5.2 H* 3.7 H Calcium Total Creatine Kinase 32471 H Troponin I Triglycerides Cholesterol LDL Cholesterol VLDL Cholesterol HDL Cholesterol Urine Color Urine Clarity Urine pH Ur Specific [place] Urine Protein Urine Glucose (UA) Urine Ketones Urine Occult Blood Urine Nitrite Urine Bilirubin Urine Urobilinogen Ur Leukocyte Esterase Urine RBC Urine WBC Ur Squamous Epith Cells Amorphous Sediment Urine Bacteria Urine Mucus 11/24/18 11/24/18 11/24/18 01:50 05:00 05:00 WBC 15.0 H RBC 3.97 L Hgb 11.4 L Hct 33.3 L MCV 83.9 MCH 28.7 MCHC 34.2 RDW 13.8 RDW Differential 41.8 Plt Count 159 MPV 11.3 Immature Gran % (Auto) 0.200 Neut % (Auto) 84.3 H Lymph % (Auto) 6.9 L [place] % (Auto) 8.5 Eos % (Auto) 0.0 Baso % (Auto) 0.1 Absolute Neuts (auto) 12.6 H Absolute Lymphs (auto) 1.04 Total Counted Not Reportable PT INR APTT Sodium Potassium Chloride Carbon Dioxide Anion Gap BUN Creatinine Estim Creat Clear Calc Est GFR (MDRD) Af Amer Est GFR (MDRD) Non-Af BUN/Creatinine Ratio Glucose Serum Osmolality Lactic Acid Calcium Total Creatine Kinase Troponin I 0.741 H* Triglycerides Cholesterol LDL Cholesterol VLDL Cholesterol HDL Cholesterol Urine Color [place] Urine Clarity Sl. Cloudy Urine pH 5.0 Ur Specific [place] 1.020 Urine Protein 100 H Urine Glucose (UA) Normal Urine Ketones 5 H Urine Occult Blood 250 H Urine Nitrite Negative Urine Bilirubin Negative Urine Urobilinogen Normal Ur Leukocyte Esterase 25 H Urine RBC 0-5 SEEN Urine WBC 0-5 SEEN Ur Squamous Epith Cells 0-5 SEEN Amorphous Sediment 1+ Urine Bacteria RARE Urine Mucus 1+ 11/24/18 11/24/18 11/24/18 05:00 05:00 05:00 WBC RBC Hgb Hct MCV MCH MCHC RDW RDW Differential Plt Count MPV Immature Gran % (Auto) Neut % (Auto) Lymph % (Auto) [place] % (Auto) Eos % (Auto) Baso % (Auto) Absolute Neuts (auto) Absolute Lymphs (auto) Total Counted PT INR APTT Sodium 129 L Potassium 4.1 Chloride 94 L Carbon Dioxide 23.0 Anion Gap 12 BUN 29 H Creatinine 1.91 H Estim Creat Clear Calc 46.08 Est GFR (MDRD) Af Amer 45 L Est GFR (MDRD) Non-Af 38 L BUN/Creatinine Ratio 15.2 Glucose 280 H Serum Osmolality Lactic Acid Calcium 7.4 L Total Creatine Kinase 45780 H Troponin I 0.628 H* Triglycerides Cholesterol LDL Cholesterol VLDL Cholesterol HDL Cholesterol Urine Color Urine Clarity Urine pH Ur Specific [place] Urine Protein Urine Glucose (UA) Urine Ketones Urine Occult Blood Urine Nitrite Urine Bilirubin Urine Urobilinogen Ur Leukocyte Esterase Urine RBC Urine WBC Ur Squamous Epith Cells Amorphous Sediment Urine Bacteria Urine Mucus 11/24/18 11/24/18 11/24/18 05:00 05:00 06:45 WBC RBC Hgb Hct MCV MCH MCHC RDW RDW Differential Plt Count MPV Immature Gran % (Auto) Neut % (Auto) Lymph % (Auto) [place] % (Auto) Eos % (Auto) Baso % (Auto) Absolute Neuts (auto) Absolute Lymphs (auto) Total Counted PT INR APTT Sodium Potassium Chloride Carbon Dioxide Anion Gap BUN Creatinine Estim Creat Clear Calc Est GFR (MDRD) Af Amer Est GFR (MDRD) Non-Af BUN/Creatinine Ratio Glucose Serum Osmolality Pending Lactic Acid 3.0 H Calcium Total Creatine Kinase Troponin I Triglycerides 51 Cholesterol 75 LDL Cholesterol 13 VLDL Cholesterol 10 HDL Cholesterol 52 Urine Color Urine Clarity Urine pH Ur Specific [place] Urine Protein Urine Glucose (UA) Urine Ketones Urine Occult Blood Urine Nitrite Urine Bilirubin Urine Urobilinogen Ur Leukocyte Esterase Urine RBC Urine WBC Ur Squamous Epith Cells Amorphous Sediment Urine Bacteria Urine Mucus POC Glucose 11/24/18 01:34 POC Glucose 86 Clinical Impression(s) from Imaging Studies Brain CT 11/23/18 21:02 IMPRESSION: No acute intracranial abnormality. Multiple subcentimeter radiodense foreign bodies noted in the right forehead, right cheek and right eye. Electronically Signed: Aime Houser, at 22:02 EST Tel , Service support , Cervical Spine CT 11/23/18 21:03 IMPRESSION: No fracture or dislocation in the cervical spine. Bony fusion of C6/C7. Electronically Signed: Aime Houser, at 22:07 EST Tel , Service support , Chest X-Ray 11/23/18 21:10 IMPRESSION: Cardiomegaly. Clear lungs. Electronically Signed: Aime Houser, at 21:35 EST Tel , Service support , Assessment/Plan Active and Suspected Problems MARQUIS (acute kidney injury) (Acute) RECOMMENDATIONS: 1. Continue current supportive measures with aggressive supplemental IV fluid hydration. 2. Start Lasix per nephrology recommendations 3. Check TSH and free T4 levels. 4. Recheck CK level in the morning. 5. Await echocardiogram. 6. Obtain speech therapy evaluation. IMPRESSIONS: 1. Fluid responsive hypotension The patient presented to the emergency department in a hypotensive state, which responded avidly to the use of supplemental IV fluid hydration. The patient remains hemodynamically stable at this time. There was never a requirement for vasopressors. 2. Acute kidney injury, likely secondary to rhabdomyolysis Nephrology is currently following. Continue aggressive supplemental IV fluid hydration and IV diuretics per recommendations. Continue to monitor urine output. No current indication for renal replacement therapy. Recheck CK level in the morning. 3. Elevated troponins Potentially related to demand ischemia in the setting of #1 and 2. Cardiology is currently following. Echocardiogram is currently pending. 4. Baseline MRDD/schizophrenia/bipolar disorder/unspecified seizure disorder/hypothyroidism Complicates care, management, recovery and prognosis. Likely okay to continue home medications. Recheck TSH and free T4 levels. Will need to discuss further with the patient has been compliant with his antiepileptic medications, as a seizure episode would also account for the patient being found down with an elevated CK level. This note was generated with gate5 dictation software. It may contain incorrect words, spelling, and punctuation that were not noted in checking the note before signing. Code Visit Inpatient E&M: 69860 Init Hosp L3
--- NOTE | 2018-11-24 07:14 | PCM.CONS.C ---
Reason for Consult Date of Consultation: 11/24/18 Reason for Consultation: Abnormal cardiac enzymes History of Present Illness: The patient is a 68 year old M with past medical history of diabetes, hypertension, seizure disorder, anxiety, depression, schizophrenia and hypothyroidism. He was admitted through the ED on 11/24/2018 with a complaint of having been found on the floor at home by his home health he has 8 usually come in the evening and stay with him overnight. Patient could not say how long he had been on the floor or how come he fell. All he could say was that he fell and could not see whether he had had a seizure or not. Patient was unable to give much history otherwise was quite confused and rambling. He was brought to the ED where initial blood pressure was 57/39 with heart rate of 89 and respiratory rate of 20. EKG done showed sinus rhythm of 79 and chest x-ray showed cardiomegaly. CT of the head showed no acute intracranial abnormality. CT of the spine showed no fracture and CBC showed white cell count of 17 and hemoglobin of 12.3. Troponin was 0.81 and lactic acid was 5.2. Creatinine was 1.65 with a baseline of around 0.88. He was started on IV fluids and blood pressure subsequently improved and was started on bicarb drip on account of creatinine kinase being 24,578. He is been admitted to the ICU to be managed for hypovolemic shock, rhabdomyolysis and elevated troponin. This morning he appears to be fairly conscious and conversant with no cardiac complaints. No shortness of breath or paroxysmal nocturnal dyspnea.. [] [] Past Medical History Allergies/Adverse Reactions: Allergies amoxicillin [Amoxicillin] Allergy (Verified 11/23/18 20:56) Unknown amoxicillin trihydrate [From Augmentin] Allergy (Verified 11/23/18 20:56) Other Penicillins Allergy (Verified 11/23/18 20:56) Unknown potassium clavulanate [From Augmentin] Allergy (Verified 11/23/18 20:56) Other SEASONAL Allergy (Uncoded 11/23/18 20:56) Unknown Home Medications: Ambulatory Orders Medication Instructions Recorded Benztropine [Cogentin] 1 mg PO BID 02/21/14 Finasteride [Proscar] 5 mg PO DAILY 02/21/14 Fluticasone Propionate [Flovent 1 sprays NARES BID 02/21/14 Diskus] Lamotrigine [Lamictal] 200 mg PO DAILY 02/21/14 Levetiracetam [Keppra] 1,500 mg PO BID 02/21/14 Levothyroxine [Synthroid] 175 mcg PO DAILY 02/21/14 Metformin HCl [Glucophage] 1,000 mg PO BIDCM 02/21/14 Risperidone [Risperdal] 3 mg PO BREAKFAST 02/21/14 Duloxetine HCl 30 mg PO DAILY 11/20/16 Lamotrigine 400 mg PO QHS 05/12/17 Atorvastatin Calcium [Lipitor] 40 mg PO QHS 02/03/18 Gabapentin [Neurontin] 300 mg PO DAILY PRN PRN 02/03/18 Risperidone [Risperdal] 4 mg PO QHS 02/03/18 Ropinirole HCl [Requip] 1 mg PO QHS 02/03/18 Triamcinolone 0.1% Cream [Kenalog] 1 applic TOPICAL BID #1 tube 02/11/18 Insulin Degludec [Tresiba 25 unit SQ DAILY 11/23/18 Flextouch U-100] Propylene Glycol/Peg 400/Pf 1 each OP TID 11/23/18 [Systane 0.3-0.4% Eye Drops] Past Medical History (Chronic Problems): Chronic Problems Prostatism (Chronic) Hypothyroidism (Chronic) Hyperlipidemia (Chronic) BPH (benign prostatic hyperplasia) (Chronic) Diabetes mellitus (Chronic) Hypertension (Chronic) Surgical History: - - The patient is undergone urethral dilatation in the past, and has been under the care of a local urologist. Psychiatric History: Anxiety, Depression, Schizophrenia - *Family History Maternal History Items: - - Specifics about the patient's family history are not known. Lives: Alone Smoking Status: Never smoker Alcohol: None Drugs: None Review of Systems - Review of Systems General: Reports: Malaise. Denies: Fever, Fatigue, Night Sweats HEENT: Denies: Vision Change Cardiovascular: Denies: Chest Discomfort, Shortness of Breath, Orthopnea, PND, Peripheral Edema, Palpitations, Lightheadedness, Dizziness, Near Syncope, Syncope Respiratory: Denies: Cough, Sputum Production, Hemoptysis Gastrointestinal: Denies: Hematemesis, Hematochezia, Melena Genitourinary: Denies: Dysuria, Hematuria Skin: Denies: Rash Neurological: Reports: Seizure Psychiatric: Denies: Anxiety Endocrine: Denies: Unexplained Weight Loss Hematologic/ Lymphatic: Denies: Anemia Subjectve: Elderly man in no distress Objective: Vital Signs Temp Pulse Resp BP Pulse Ox 97.8 F 74 22 H 118/63 97 11/24/18 02:21 11/24/18 07:06 11/24/18 07:06 11/24/18 06:00 11/24/18 07:06 Oxygen Flow Rate (L/min) 2 Oxygen Delivery Method Room Air Weight: 255 lb 11.779 oz Body Mass Index (BMI) 31.1 Finger Stick Blood Glucose 145 Intake and Output for Last 24 Hours 11/22/18 11/23/18 11/24/18 23:59 23:59 23:59 Intake Total 1844 / 1844 Output Total 500 / 500 Balance 1344 / 1344 General: Awake, Alert, Oriented x 3 HEENT: PERRL, EOMI, Sclera Non Icteric Neck: Supple, Good ROM, No Lymph Node Enlargement Lungs: Clear to auscultation Cardiovascular: Regular Rhythm, Normal S1, Normal S2, No Murmurs, No Rubs, No Gallops Vascular: No Carotid Bruits, Normal Femoral Pulses, Normal Radial Pulses, Normal Dorsalis Pedal Pulse, Normal Posterior Tibial Pulses Abdomen: Bowel Sounds Present, Soft, Non Tender, No HSM, No Organomegaly Extremities: No Cyanosis, No Clubbing, Bilateral Edema +1 Skin: No Rashes Lymphatic: No Lymph Node Enlargement Neurological: No Focal Motor or Sensory Deficit Psych/Mental Status: Appropriate 11/23/18 21:10: WBC 17.0 H, RBC 4.27 L, Hgb 12.3 L, Hct 36.0 L, MCV 84.3, MCH 28.8, MCHC 34.2, RDW 13.7, RDW Differential 41.8, Plt Count 195, MPV 11.9, Immature Gran % (Auto) 0.200, Neut % (Auto) 86.9 H, Lymph % (Auto) 7.5 L, [place] % (Auto) 5.3, Eos % (Auto) 0.0, Baso % (Auto) 0.1, Absolute Neuts (auto) 14.8 H, Total Counted Not Reportable 11/23/18 21:10: PT 15.8 H, INR 1.3, APTT 28.6 11/23/18 21:10: Sodium 130 L, Potassium 4.4, Chloride 98, Carbon Dioxide 20.0 L, Anion Gap 12, BUN 23 H, Creatinine 1.65 H, Est GFR (MDRD) Af Amer 54 L, Est GFR (MDRD) Non-Af 44 L, BUN/Creatinine Ratio 13.9, Glucose 82, Calcium 8.0 L, Troponin I 0.821 H* 11/23/18 21:10: Lactic Acid 5.2 H* 11/24/18 01:10: Lactic Acid 3.7 H 11/24/18 01:50: Troponin I 0.741 H* 11/24/18 05:00: Urine Color Karlee, Urine Clarity Sl. Cloudy, Urine pH 5.0, Ur Specific [place] 1.020, Urine Protein 100 H, Urine Glucose (UA) Normal, Urine Ketones 5 H, Urine Occult Blood 250 H, Urine Nitrite Negative, Urine Bilirubin Negative, Urine Urobilinogen Normal, Ur Leukocyte Esterase 25 H, Urine RBC 0-5 SEEN, Urine WBC 0-5 SEEN 11/24/18 05:00: WBC 15.0 H, RBC 3.97 L, Hgb 11.4 L, Hct 33.3 L, MCV 83.9, MCH 28.7, MCHC 34.2, RDW 13.8, RDW Differential 41.8, Plt Count 159, MPV 11.3, Immature Gran % (Auto) 0.200, Neut % (Auto) 84.3 H, Lymph % (Auto) 6.9 L, [place] % (Auto) 8.5, Eos % (Auto) 0.0, Baso % (Auto) 0.1, Absolute Neuts (auto) 12.6 H, Total Counted Not Reportable 11/24/18 05:00: Sodium 129 L, Potassium 4.1, Chloride 94 L, Carbon Dioxide 23.0, Anion Gap 12, BUN 29 H, Creatinine 1.91 H, Est GFR (MDRD) Af Amer 45 L, Est GFR (MDRD) Non-Af 38 L, BUN/Creatinine Ratio 15.2, Glucose 280 H, Calcium 7.4 L 11/24/18 05:00: Troponin I 0.628 H* 11/24/18 05:00: Lactic Acid 3.0 H 11/24/18 05:00: Triglycerides 51, Cholesterol 75, LDL Cholesterol 13, VLDL Cholesterol 10, HDL Cholesterol 52 Rhythm: EKG: Normal sinus rhythm with no acute changes Assessment/Plan 68 y/o admitted after being found down in his house 1. Rhabdomyolysis due to fall CPK was >24,000 was hypotensive on admission as well. hydrate with IVF NS @ 250cc/hr, and monitor CPK admit to ICU for closer monitoring overnight; can likely be transferred out of the Unit by tomorrow if he remains stable Echo to assess LV function 2. Elevated troponins initial troponin is 0.821; could be due to demand ischemia as his BP was in 50s systolic on admission EKG showed no acute ST changes. Cycle troponin. Echo to asses LV function Aspirin 81 mg daily. Further recommendations will depend on how he does and recovers from his rhabdomyolysis. His renal function also need to be monitored as it seems to be worsening for now. Thank you for allowing me to participate in the care of your patient. Please don't hesitate to call if any issues arise
--- NOTE | 2018-11-24 07:19 | CON.PCM_ITS ---
Reason for Consult Date of Consultation: 11/24/18 Reason for Consultation: Abnormal cardiac enzymes History of Present Illness: The patient is a 68 year old M with past medical history of diabetes, hypertension, seizure disorder, anxiety, depression, schizophrenia and hypothyroidism. He was admitted through the ED on 11/24/2018 with a complaint of having been found on the floor at home by his home health he has 8 usually come in the evening and stay with him overnight. Patient could not say how long he had been on the floor or how come he fell. All he could say was that he fell and could not see whether he had had a seizure or not. Patient was unable to give much history otherwise was quite confused and rambling. He was brought to the ED where initial blood pressure was 57/39 with heart rate of 89 and respiratory rate of 20. EKG done showed sinus rhythm of 79 and chest x-ray showed cardiomegaly. CT of the head showed no acute intracranial abnormality. CT of the spine showed no fracture and CBC showed white cell count of 17 and hemoglobin of 12.3. Troponin was 0.81 and lactic acid was 5.2. Creatinine was 1.65 with a baseline of around 0.88. He was started on IV fluids and blood pressure subsequently improved and was started on bicarb drip on account of cr eatinine kinase being 24,578. He is been admitted to the ICU to be managed for hypovolemic shock, rhabdomyolysis and elevated troponin. This morning he appears to be fairly conscious and conversant with no cardiac complaints. No shortness of breath or paroxysmal nocturnal dyspnea.. [] [] Past Medical History Allergies/Adverse Reactions: Allergies amoxicillin [Amoxicillin] Allergy (Verified 11/23/18 20:56) Unknown amoxicillin trihydrate [From Augmentin] Allergy (Verified 11/23/18 20:56) Other Penicillins Allergy (Verified 11/23/18 20:56) Unknown potassium clavulanate [From Augmentin] Allergy (Verified 11/23/18 20:56) Other SEASONAL Allergy (Uncoded 11/23/18 20:56) Unknown Home Medications: Ambulatory Orders Medication Instructions Recorded Benztropine [Cogentin] 1 mg PO BID 02/21/14 Finasteride [Proscar] 5 mg PO DAILY 02/21/14 Fluticasone Propionate [Flovent 1 sprays NARES BID 02/21/14 Diskus] Lamotrigine [Lamictal] 200 mg PO DAILY 02/21/14 Levetiracetam [Keppra] 1,500 mg PO BID 02/21/14 Levothyroxine [Synthroid] 175 mcg PO DAILY 02/21/14 Metformin HCl [Glucophage] 1,000 mg PO BIDCM 02/21/14 Risperidone [Risperdal] 3 mg PO BREAKFAST 02/21/14 Duloxetine HCl 30 mg PO DAILY 11/20/16 Lamotrigine 400 mg PO QHS 05/12/17 Atorvastatin Calcium [Lipitor] 40 mg PO QHS 02/03/18 Gabapentin [Neurontin] 300 mg PO DAILY PRN PRN 02/03/18 Risperidone [Risperdal] 4 mg PO QHS 02/03/18 Ropinirole HCl [Requip] 1 mg PO QHS 02/03/18 Triamcinolone 0.1% Cream [Kenalog] 1 applic TOPICAL BID #1 tube 02/11/18 Insulin Degludec [Tresiba 25 unit SQ DAILY 11/23/18 Flextouch U-100] Propylene Glycol/Peg 400/Pf 1 each OP TID 11/23/18 [Systane 0.3-0.4% Eye Drops] Past Medical History (Chronic Problems): Chronic Problems Prostatism (Chronic) Hypothyroidism (Chronic) Hyperlipidemia (Chronic) BPH (benign prostatic hyperplasia) (Chronic) Diabetes mellitus (Chronic) Hypertension (Chronic) Surgical History: - - The patient is undergone urethral dilatation in the past, and has been under the care of a local urologist. Psychiatric History: Anxiety, Depression, Schizophrenia - *Family History Maternal History Items: - - Specifics about the patient's family history are not known. Lives: Alone Smoking Status: Never smoker Alcohol: None Drugs: None Review of Systems - Review of Systems General: Reports: Malaise. Denies: Fever, Fatigue, Night Sweats HEENT: Denies: Vision Change Cardiovascular: Denies: Chest Discomfort, Shortness of Breath, Orthopnea, PND, Peripheral Edema, Palpitations, Lightheadedness, Dizziness, Near Syncope, Syncope Respiratory: Denies: Cough, Sputum Production, Hemoptysis Gastrointestinal: Denies: Hematemesis, Hematochezia, Melena Genitourinary: Denies: Dysuria, Hematuria Skin: Denies: Rash Neurological: Reports: Seizure Psychiatric: Denies: Anxiety Endocrine: Denies: Unexplained Weight Loss Hematologic/ Lymphatic: Denies: Anemia Subjectve: Elderly man in no distress Objective: Vital Signs Temp Pulse Resp BP Pulse Ox 97.8 F 74 22 H 118/63 97 11/24/18 02:21 11/24/18 07:06 11/24/18 07:06 11/24/18 06:00 11/24/18 07:06 Oxygen Flow Rate (L/min) 2 Oxygen Delivery Method Room Air Weight: 255 lb 11.779 oz Body Mass Index (BMI) 31.1 Finger Stick Blood Glucose 145 Intake and Output for Last 24 Hours 11/22/18 11/23/18 11/24/18 23:59 23:59 23:59 Intake Total 1844 / 1844 Output Total 500 / 500 Balance 1344 / 1344 General: Awake, Alert, Oriented x 3 HEENT: PERRL, EOMI, Sclera Non Icteric Neck: Supple, Good ROM, No Lymph Node Enlargement Lungs: Clear to auscultation Cardiovascular: Regular Rhythm, Normal S1, Normal S2, No Murmurs, No Rubs, No Gallops Vascular: No Carotid Bruits, Normal Femoral Pulses, Normal Radial Pulses, Normal Dorsalis Pedal Pulse, Normal Posterior Tibial Pulses Abdomen: Bowel Sounds Present, Soft, Non Tender, No HSM, No Organomegaly Extremities: No Cyanosis, No Clubbing, Bilateral Edema +1 Skin: No Rashes Lymphatic: No Lymph Node Enlargement Neurological: No Focal Motor or Sensory Deficit Psych/Mental Status: Appropriate 11/23/18 21:10: WBC 17.0 H, RBC 4.27 L, Hgb 12.3 L, Hct 36.0 L, MCV 84.3, MCH 28.8, MCHC 34.2, RDW 13.7, RDW Differential 41.8, Plt Count 195, MPV 11.9, Immature Gran % (Auto) 0.200, Neut % (Auto) 86.9 H, Lymph % (Auto) 7.5 L, [place] % (Auto) 5.3, Eos % (Auto) 0.0, Baso % (Auto) 0.1, Absolute Neuts (auto) 14.8 H, Total Counted Not Reportable 11/23/18 21:10: PT 15.8 H, INR 1.3, APTT 28.6 11/23/18 21:10: Sodium 130 L, Potassium 4.4, Chloride 98, Carbon Dioxide 20.0 L, Anion Gap 12, BUN 23 H, Creatinine 1.65 H, Est GFR (MDRD) Af Amer 54 L, Est GFR (MDRD) Non-Af 44 L, BUN/Creatinine Ratio 13.9, Glucose 82, Calcium 8.0 L, Troponin I 0.821 H* 11/23/18 21:10: Lactic Acid 5.2 H* 11/24/18 01:10: Lactic Acid 3.7 H 11/24/18 01:50: Troponin I 0.741 H* 11/24/18 05:00: Urine Color Kar[place], Urine Clarity Sl. Cloudy, Urine pH 5.0, Ur Specific [place] 1.020, Urine Protein 100 H, Urine Glucose (UA) Normal, Urine Ketones 5 H, Urine Occult Blood 250 H, Urine Nitrite Negative, Urine Bilirubin Negative, Urine Urobilinogen Normal, Ur Leukocyte Esterase 25 H, Urine RBC 0-5 SEEN, Urine WBC 0-5 SEEN 11/24/18 05:00: WBC 15.0 H, RBC 3.97 L, Hgb 11.4 L, Hct 33.3 L, MCV 83.9, MCH 28.7, MCHC 34.2, RDW 13.8, RDW Differential 41.8, Plt Count 159, MPV 11.3, Immature Gran % (Auto) 0.200, Neut % (Auto) 84.3 H, Lymph % (Auto) 6.9 L, [place] % (Auto) 8.5, Eos % (Auto) 0.0, Baso % (Auto) 0.1, Absolute Neuts (auto) 12.6 H, T otal Counted Not Reportable 11/24/18 05:00: Sodium 129 L, Potassium 4.1, Chloride 94 L, Carbon Dioxide 23.0, Anion Gap 12, BUN 29 H, Creatinine 1.91 H, Est GFR (MDRD) Af Amer 45 L, Est GFR (MDRD) Non-Af 38 L, BUN/Creatinine Ratio 15.2, Glucose 280 H, Calcium 7.4 L 11/24/18 05:00: Troponin I 0.628 H* 11/24/18 05:00: Lactic Acid 3.0 H 11/24/18 05:00: Triglycerides 51, Cholesterol 75, LDL Cholesterol 13, VLDL Cholesterol 10, HDL Cholesterol 52 Rhythm: EKG: Normal sinus rhythm with no acute changes Assessment/Plan 68 y/o admitted after being found down in his house 1. Rhabdomyolysis due to fall * CPK was >24,000 * was hypotensive on admission as well. * hydrate with IVF NS @ 250cc/hr, and monitor CPK * admit to ICU for closer monitoring overnight; can likely be transferred out of the Unit by tomorrow if he remains stable * Echo to assess LV function 2. Elevated troponins * initial troponin is 0.821; could be due to demand ischemia as his BP was in 50s systolic on admission * EKG showed no acute ST changes. * Cycle troponin. * Echo to asses LV function * Aspirin 81 mg daily. * Further recommendations will depend on how he does and recovers from his rhabdomyolysis. His renal function also need to be monitored as it seems to be worsening for now. * * Thank you for allowing me to participate in the care of your patient. Please don't hesitate to call if any issues arise
[2018-11-24 07:42] LABS: AST(SGOT) 531 U/L (15-37); Alanine Aminotransfer ALT/SGPT 143 U/L (16-61); Albumin, Serum 2.8 g/dL (3.2-5.0); Alkaline Phosphatase 77 U/L (45-117); Bilirubin, Direct 0.25 mg/dL (0.00-0.30); Globulin 2.5 g/dL (2.2-4.2); Protein, Total 5.3 g/dL (6.4-8.2); T4 Free Direct 1.67 ng/dL (0.76-1.46); Thyroid Stim Hormone (TSH) 2.25 uIU/mL (0.358-3.74)
[2018-11-24 07:53] LABS: Osmolality, Serum 274 mOsm/KG (280-301)
[2018-11-24] MEDS: lamoTRIgine 100 MG Tablet 200 MG PO (08:04)
[2018-11-24] MEDS: RisperiDONE 1 MG Tablet 3 MG PO (08:04)
[2018-11-24] MEDS: DULoxetine Hcl 30 MG Capsule PO (08:04)
[2018-11-24] MEDS: levETIRAcetam 750 MG Tablet 1500 MG PO ×2 (08:04→21:06)
[2018-11-24] MEDS: Aspirin 81 MG TAB.CHEW PO (08:04)
[2018-11-24] MEDS: Benztropine 2 MG Tablet 1 MG PO ×2 (08:04→21:07)
[2018-11-24 08:10] LABS: Bedside Glucose 66 mg/dL (70-110)
--- NOTE | 2018-11-24 11:20 | PCM.CONS.R ---
Problem List (1) MARQUIS (acute kidney injury) Status: Acute Consultation - Renal 11/24/18 PCP/ Referring MD: Requesting physician: Dr Ag Primary care physician: Matthias Obrien MD Reason for Consultation:: MARQUIS - History of Present Illness History of Present Illness: The patient is a 68 year old M who was found down by family members. apparently patient lives at home and usually has family members or aide stay with him. he was found down and brought into ER. he is currently confused and most of history is from charts. found to have severe rhabdomyolysis with CPK of 24 K. unable to do ROS - Allergies Allergies: Allergies amoxicillin [Amoxicillin] Allergy (Verified 11/23/18 20:56) Unknown amoxicillin trihydrate [From Augmentin] Allergy (Verified 11/23/18 20:56) Other Penicillins Allergy (Verified 11/23/18 20:56) Unknown potassium clavulanate [From Augmentin] Allergy (Verified 11/23/18 20:56) Other SEASONAL Allergy (Uncoded 11/23/18 20:56) Unknown - Current Medications Current Medications: Current Medications Aspirin (Aspirin, Baby) 81 mg PO DAILY@0800 [facility] Last Admin: 11/24/18 08:04 Dose: 81 mg Benztropine Mesylate (Cogentin) 1 mg PO BID [facility] Last Admin: 11/24/18 08:04 Dose: 1 mg Budesonide (Pulmicort Aerosol) 0.5 mg INHALATION Q12H.RT [facility] Last Admin: 11/24/18 07:05 Dose: 0.5 mg Dextrose (D50w Syringe) 0 gm IV X1 PRN; Protocol PRN Reason: Hypoglycemia Duloxetine HCl (Cymbalta) 30 mg PO DAILY [facility] Last Admin: 11/24/18 08:04 Dose: 30 mg Enoxaparin Sodium (Lovenox) 30 mg SC DAILY@1000 [facility] Last Admin: 11/24/18 08:05 Dose: 30 mg Gabapentin (Neurontin) 300 mg PO DAILY PRN PRN PRN Reason: R FOOT Glucagon () 1 mg IM .X1 PRN PRN Reason: Hypoglycemia Sodium Chloride () 250 mls @ 15 mls/hr IV .[id number] PRN PRN Reason: SALINE FLUSH Sodium Chloride () 1,000 mls @ 250 mls/hr IV .Q4H [facility] Last Admin: 11/24/18 10:21 Dose: 250 mls/hr Insulin Glargine (Lantus (Bk)) 25 units SC DAILY [facility] Last Admin: 11/24/18 10:24 Dose: Not Given Insulin Human Lispro (Humalog Kwikpen ([facility])) 0 unit SQ ACHS [facility]; Protocol Last Admin: 11/24/18 08:01 Dose: Not Given Lamotrigine (Lamictal) 200 mg PO DAILY [facility] Last Admin: 11/24/18 08:04 Dose: 200 mg Lamotrigine (Lamictal) 400 mg PO QHS [facility] Levetiracetam (Keppra Tablet) 1,500 mg PO BID [facility] Last Admin: 11/24/18 08:04 Dose: 1,500 mg Levothyroxine Sodium (Synthroid) 175 mcg PO DAILY@0600 [facility] Last Admin: 11/24/18 06:21 Dose: 175 mcg Magnesium Hydroxide (Milk Of Magnesia) 30 ml PO DAILY PRN PRN PRN Reason: Constipation Pramipexole Dihydrochloride (Mirapex) 0.5 mg PO QHS [facility] Risperidone (Risperdal) 3 mg PO BREAKFAST [facility] Last Admin: 11/24/18 08:04 Dose: 3 mg Risperidone (Risperdal) 4 mg PO QHS [facility] Sodium Chloride () 5 - 15 ml IV UD PRN PRN Reason: SALINE FLUSH Last Admin: 11/24/18 06:45 Dose: 10 ml - Past Medical History Past Medical History (Chronic Problems): Chronic Problems Prostatism (Chronic) Hypothyroidism (Chronic) Hyperlipidemia (Chronic) BPH (benign prostatic hyperplasia) (Chronic) Diabetes mellitus (Chronic) Hypertension (Chronic) - Past Surgical History Surgical History: - - The patient is undergone urethral dilatation in the past, and has been under the care of a local urologist. - Social History Smoking Status: Never smoker Alcohol: None Drugs: None - Family History Maternal History Items: - - Specifics about the patient's family history are not known. Review of Systems Unable to obtain accurate/complete ROS d/t: due to AMS Patient Problems: Active and Suspected Problems MARQUIS (acute kidney injury) (Acute) - Physical Exam General: Confused HEENT: Atraumatic, PERRLA, EOMI, Normocephalic Neck: Supple, No JVD, Negative Carotid Bruits Lungs: Clear to auscultation, Normal air movement Cardiovascular: Regular rate, No murmurs Abdomen: Bowel Sounds Present, Soft, Non Tender Extremities: No edema, Capillary Refill Less than 3 Seconds Skin: No rashes, No breakdown Musculoskeletal: No Tenderness to Palpation of Joints or Extremities Vital Signs Temp Pulse Resp BP Pulse Ox 98.4 F 76 18 102/58 L 98 11/24/18 08:00 11/24/18 11:00 11/24/18 11:00 11/24/18 11:00 11/24/18 11:00 Oxygen Flow Rate (L/min) 2 Oxygen Delivery Method Room Air Weight: 116 kg Body Mass Index (BMI) 31.1 Finger Stick Blood Glucose 145 Intake and Output for Last 24 Hours 11/22/18 11/23/18 11/24/18 23:59 23:59 23:59 Intake Total 1844 / 1844 Output Total 500 / 500 Balance 1344 / 1344 Laboratory Tests Past 24 Hrs 11/23/18 11/23/18 11/23/18 21:10 21:10 21:10 WBC 17.0 H RBC 4.27 L Hgb 12.3 L Hct 36.0 L MCV 84.3 MCH 28.8 MCHC 34.2 RDW 13.7 RDW Differential 41.8 Plt Count 195 MPV 11.9 Immature Gran % (Auto) 0.200 Neut % (Auto) 86.9 H Lymph % (Auto) 7.5 L [place] % (Auto) 5.3 Eos % (Auto) 0.0 Baso % (Auto) 0.1 Absolute Neuts (auto) 14.8 H Absolute Lymphs (auto) 1.27 Total Counted Not Reportable PT 15.8 H INR 1.3 APTT 28.6 Sodium 130 L Potassium 4.4 Chloride 98 Carbon Dioxide 20.0 L Anion Gap 12 BUN 23 H Creatinine 1.65 H Estim Creat Clear Calc 53.34 Est GFR (MDRD) Af Amer 54 L Est GFR (MDRD) Non-Af 44 L BUN/Creatinine Ratio 13.9 Glucose 82 Serum Osmolality Lactic Acid Calcium 8.0 L Total Bilirubin Direct Bilirubin AST ALT Alkaline Phosphatase Total Creatine Kinase Troponin I 0.821 H* Total Protein Albumin Globulin Triglycerides Cholesterol LDL Cholesterol VLDL Cholesterol HDL Cholesterol TSH Free T4 Urine Color Urine Clarity Urine pH Ur Specific [place] Urine Protein Urine Glucose (UA) Urine Ketones Urine Occult Blood Urine Nitrite Urine Bilirubin Urine Urobilinogen Ur Leukocyte Esterase Urine RBC Urine WBC Ur Squamous Epith Cells Amorphous Sediment Urine Bacteria Urine Mucus 11/23/18 11/23/18 11/24/18 21:10 21:10 01:10 WBC RBC Hgb Hct MCV MCH MCHC RDW RDW Differential Plt Count MPV Immature Gran % (Auto) Neut % (Auto) Lymph % (Auto) [place] % (Auto) Eos % (Auto) Baso % (Auto) Absolute Neuts (auto) Absolute Lymphs (auto) Total Counted PT INR APTT Sodium Potassium Chloride Carbon Dioxide Anion Gap BUN Creatinine Estim Creat Clear Calc Est GFR (MDRD) Af Amer Est GFR (MDRD) Non-Af BUN/Creatinine Ratio Glucose Serum Osmolality Lactic Acid 5.2 H* 3.7 H Calcium Total Bilirubin Direct Bilirubin AST ALT Alkaline Phosphatase Total Creatine Kinase 61271 H Troponin I Total Protein Albumin Globulin Triglycerides Cholesterol LDL Cholesterol VLDL Cholesterol HDL Cholesterol TSH Free T4 Urine Color Urine Clarity Urine pH Ur Specific [place] Urine Protein Urine Glucose (UA) Urine Ketones Urine Occult Blood Urine Nitrite Urine Bilirubin Urine Urobilinogen Ur Leukocyte Esterase Urine RBC Urine WBC Ur Squamous Epith Cells Amorphous Sediment Urine Bacteria Urine Mucus 11/24/18 11/24/18 11/24/18 01:50 05:00 05:00 WBC 15.0 H RBC 3.97 L Hgb 11.4 L Hct 33.3 L MCV 83.9 MCH 28.7 MCHC 34.2 RDW 13.8 RDW Differential 41.8 Plt Count 159 MPV 11.3 Immature Gran % (Auto) 0.200 Neut % (Auto) 84.3 H Lymph % (Auto) 6.9 L [place] % (Auto) 8.5 Eos % (Auto) 0.0 Baso % (Auto) 0.1 Absolute Neuts (auto) 12.6 H Absolute Lymphs (auto) 1.04 Total Counted Not Reportable PT INR APTT Sodium Potassium Chloride Carbon Dioxide Anion Gap BUN Creatinine Estim Creat Clear Calc Est GFR (MDRD) Af Amer Est GFR (MDRD) Non-Af BUN/Creatinine Ratio Glucose Serum Osmolality Lactic Acid Calcium Total Bilirubin Direct Bilirubin AST ALT Alkaline Phosphatase Total Creatine Kinase Troponin I 0.741 H* Total Protein Albumin Globulin Triglycerides Cholesterol LDL Cholesterol VLDL Cholesterol HDL Cholesterol TSH Free T4 Urine Color [place] Urine Clarity Sl. Cloudy Urine pH 5.0 Ur Specific [place] 1.020 Urine Protein 100 H Urine Glucose (UA) Normal Urine Ketones 5 H Urine Occult Blood 250 H Urine Nitrite Negative Urine Bilirubin Negative Urine Urobilinogen Normal Ur Leukocyte Esterase 25 H Urine RBC 0-5 SEEN Urine WBC 0-5 SEEN Ur Squamous Epith Cells 0-5 SEEN Amorphous Sediment 1+ Urine Bacteria RARE Urine Mucus 1+ 11/24/18 11/24/18 11/24/18 05:00 05:00 05:00 WBC RBC Hgb Hct MCV MCH MCHC RDW RDW Differential Plt Count MPV Immature Gran % (Auto) Neut % (Auto) Lymph % (Auto) [place] % (Auto) Eos % (Auto) Baso % (Auto) Absolute Neuts (auto) Absolute Lymphs (auto) Total Counted PT INR APTT Sodium 129 L Potassium 4.1 Chloride 94 L Carbon Dioxide 23.0 Anion Gap 12 BUN 29 H Creatinine 1.91 H Estim Creat Clear Calc 46.08 Est GFR (MDRD) Af Amer 45 L Est GFR (MDRD) Non-Af 38 L BUN/Creatinine Ratio 15.2 Glucose 280 H Serum Osmolality Lactic Acid Calcium 7.4 L Total Bilirubin Direct Bilirubin AST ALT Alkaline Phosphatase Total Creatine Kinase 87022 H Troponin I 0.628 H* Total Protein Albumin Globulin Triglycerides Cholesterol LDL Cholesterol VLDL Cholesterol HDL Cholesterol TSH Free T4 Urine Color Urine Clarity Urine pH Ur Specific [place] Urine Protein Urine Glucose (UA) Urine Ketones Urine Occult Blood Urine Nitrite Urine Bilirubin Urine Urobilinogen Ur Leukocyte Esterase Urine RBC Urine WBC Ur Squamous Epith Cells Amorphous Sediment Urine Bacteria Urine Mucus 11/24/18 11/24/18 11/24/18 05:00 05:00 05:00 WBC RBC Hgb Hct MCV MCH MCHC RDW RDW Differential Plt Count MPV Immature Gran % (Auto) Neut % (Auto) Lymph % (Auto) [place] % (Auto) Eos % (Auto) Baso % (Auto) Absolute Neuts (auto) Absolute Lymphs (auto) Total Counted PT INR APTT Sodium Potassium Chloride Carbon Dioxide Anion Gap BUN Creatinine Estim Creat Clear Calc Est GFR (MDRD) Af Amer Est GFR (MDRD) Non-Af BUN/Creatinine Ratio Glucose Serum Osmolality Lactic Acid 3.0 H Calcium Total Bilirubin 0.90 Direct Bilirubin 0.25 AST 531 H ALT 143 H Alkaline Phosphatase 77 Total Creatine Kinase Troponin I Total Protein 5.3 L Albumin 2.8 L Globulin 2.5 Triglycerides 51 Cholesterol 75 LDL Cholesterol 13 VLDL Cholesterol 10 HDL Cholesterol 52 TSH 2.25 Free T4 1.67 H Urine Color Urine Clarity Urine pH Ur Specific [place] Urine Protein Urine Glucose (UA) Urine Ketones Urine Occult Blood Urine Nitrite Urine Bilirubin Urine Urobilinogen Ur Leukocyte Esterase Urine RBC Urine WBC Ur Squamous Epith Cells Amorphous Sediment Urine Bacteria Urine Mucus 11/24/18 06:45 WBC RBC Hgb Hct MCV MCH MCHC RDW RDW Differential Plt Count MPV Immature Gran % (Auto) Neut % (Auto) Lymph % (Auto) [place] % (Auto) Eos % (Auto) Baso % (Auto) Absolute Neuts (auto) Absolute Lymphs (auto) Total Counted PT INR APTT Sodium Potassium Chloride Carbon Dioxide Anion Gap BUN Creatinine Estim Creat Clear Calc Est GFR (MDRD) Af Amer Est GFR (MDRD) Non-Af BUN/Creatinine Ratio Glucose Serum Osmolality 274 L Lactic Acid Calcium Total Bilirubin Direct Bilirubin AST ALT Alkaline Phosphatase Total Creatine Kinase Troponin I Total Protein Albumin Globulin Triglycerides Cholesterol LDL Cholesterol VLDL Cholesterol HDL Cholesterol TSH Free T4 Urine Color Urine Clarity Urine pH Ur Specific [place] Urine Protein Urine Glucose (UA) Urine Ketones Urine Occult Blood Urine Nitrite Urine Bilirubin Urine Urobilinogen Ur Leukocyte Esterase Urine RBC Urine WBC Ur Squamous Epith Cells Amorphous Sediment Urine Bacteria Urine Mucus POC Glucose 11/24/18 11/24/18 08:01 01:34 POC Glucose 66 L 86 Assessment/Plan All Active Problems MARQUIS (acute kidney injury) (Acute) Metatarsal fracture (Acute) MARQUIS Rhabdomyolysis CPK levels are at 24K. likely related to recent fall. overnight he had some urine output but has only made 180cc since 5 AM likely in oliguric renal failure from rhabdomyolysis no acute indications for [employer] try lasix for today to see if we can drive urine output continue fluids d/w Dr ag
--- NOTE | 2018-11-24 11:26 | CON.PCM_ITS ---
Problem List (1) MARQUIS (acute kidney injury) Status: Acute Consultation - Renal 11/24/18 PCP/ Referring MD: Requesting physician: Dr Ag Primary care physician: Matthias Obrien MD Reason for Consultation:: MARQUIS - History of Present Illness History of Present Illness: The patient is a 68 year old M who was found down by family members. apparently patient lives at home and usually has family members or aide stay with him. he was found down and brought into ER. he is currently confused and most of history is from charts. found to have severe rhabdomyolysis with CPK of 24 K. unable to do ROS - Allergies Allergies: Allergies amoxicillin [Amoxicillin] Allergy (Verified 11/23/18 20:56) Unknown amoxicillin trihydrate [From Augmentin] Allergy (Verified 11/23/18 20:56) Other Penicillins Allergy (Verified 11/23/18 20:56) Unknown potassium clavulanate [From Augmentin] Allergy (Verified 11/23/18 20:56) Other SEASONAL Allergy (Uncoded 11/23/18 20:56) Unknown - Current Medications Current Medications: Current Medications Aspirin (Aspirin, Baby) 81 mg PO DAILY@0800 [facility] Last Admin: 11/24/18 08:04 Dose: 81 mg Benztropine Mesylate (Cogentin) 1 mg PO BID [facility] Last Admin: 11/24/18 08:04 Dose: 1 mg Budesonide (Pulmicort Aerosol) 0.5 mg INHALATION Q12H.RT [facility] Last Admin: 11/24/18 07:05 Dose: 0.5 mg Dextrose (D50w Syringe) 0 gm IV X1 PRN; Protocol PRN Reason: Hypoglycemia Duloxetine HCl (Cymbalta) 30 mg PO DAILY [facility] Last Admin: 11/24/18 08:04 Dose: 30 mg Enoxaparin Sodium (Lovenox) 30 mg SC DAILY@1000 [facility] Last Admin: 11/24/18 08:05 Dose: 30 mg Gabapentin (Neurontin) 300 mg PO DAILY PRN PRN PRN Reason: R FOOT Glucagon () 1 mg IM .X1 PRN PRN Reason: Hypoglycemia Sodium Chloride () 250 mls @ 15 mls/hr IV .[id number] PRN PRN Reason: SALINE FLUSH Sodium Chloride () 1,000 mls @ 250 mls/hr IV .Q4H [facility] Last Admin: 11/24/18 10:21 Dose: 250 mls/hr Insulin Glargine (Lantus (Bk)) 25 units SC DAILY [facility] Last Admin: 11/24/18 10:24 Dose: Not Given Insulin Human Lispro (Humalog Kwikpen ([facility])) 0 unit SQ ACHS [facility]; Protocol Last Admin: 11/24/18 08:01 Dose: Not Given Lamotrigine (Lamictal) 200 mg PO DAILY [facility] Last Admin: 11/24/18 08:04 Dose: 200 mg Lamotrigine (Lamictal) 400 mg PO QHS [facility] Levetiracetam (Keppra Tablet) 1,500 mg PO BID [facility] Last Admin: 11/24/18 08:04 Dose: 1,500 mg Levothyroxine Sodium (Synthroid) 175 mcg PO DAILY@0600 [facility] Last Admin: 11/24/18 06:21 Dose: 175 mcg Magnesium Hydroxide (Milk Of Magnesia) 30 ml PO DAILY PRN PRN PRN Reason: Constipation Pramipexole Dihydrochloride (Mirapex) 0.5 mg PO QHS [facility] Risperidone (Risperdal) 3 mg PO BREAKFAST [facility] Last Admin: 11/24/18 08:04 Dose: 3 mg Risperidone (Risperdal) 4 mg PO QHS [facility] Sodium Chloride () 5 - 15 ml IV UD PRN PRN Reason: SALINE FLUSH Last Admin: 11/24/18 06:45 Dose: 10 ml - Past Medical History Past Medical History (Chronic Problems): Chronic Problems Prostatism (Chronic) Hypothyroidism (Chronic) Hyperlipidemia (Chronic) BPH (benign prostatic hyperplasia) (Chronic) Diabetes mellitus (Chronic) Hypertension (Chronic) - Past Surgical History Surgical History: - - The patient is undergone urethral dilatation in the past, and has been under the care of a local urologist. - Social History Smoking Status: Never smoker Alcohol: None Drugs: None - Family History Maternal History Items: - - Specifics about the patient's family history are not known. Review of Systems Unable to obtain accurate/complete ROS d/t: due to AMS Patient Problems: Active and Suspected Problems MARQUIS (acute kidney injury) (Acute) - Physical Exam General: Confused HEENT: Atraumatic, PERRLA, EOMI, Normocephalic Neck: Supple, No JVD, Negative Carotid Bruits Lungs: Clear to auscultation, Normal air movement Cardiovascular: Regular rate, No murmurs Abdomen: Bowel Sounds Present, Soft, Non Tender Extremities: No edema, Capillary Refill Less than 3 Seconds Skin: No rashes, No breakdown Musculoskeletal: No Tenderness to Palpation of Joints or Extremities Vital Signs Temp Pulse Resp BP Pulse Ox 98.4 F 76 18 102/58 L 98 11/24/18 08:00 11/24/18 11:00 11/24/18 11:00 11/24/18 11:00 11/24/18 11:00 Oxygen Flow Rate (L/min) 2 Oxygen Delivery Method Room Air Weight: 116 kg Body Mass Index (BMI) 31.1 Finger Stick Blood Glucose 145 Intake and Output for Last 24 Hours 11/22/18 11/23/18 11/24/18 23:59 23:59 23:59 Intake Total 1844 / 1844 Output Total 500 / 500 Balance 1344 / 1344 Laboratory Tests Past 24 Hrs 11/23/18 11/23/18 11/23/18 21:10 21:10 21:10 WBC 17.0 H RBC 4.27 L Hgb 12.3 L Hct 36.0 L MCV 84.3 MCH 28.8 MCHC 34.2 RDW 13.7 RDW Differential 41.8 Plt Count 195 MPV 11.9 Immature Gran % (Auto) 0.200 Neut % (Auto) 86.9 H Lymph % (Auto) 7.5 L [place] % (Auto) 5.3 Eos % (Auto) 0.0 Baso % (Auto) 0.1 Absolute Neuts (auto) 14.8 H Absolute Lymphs (auto) 1.27 Total Counted Not Reportable PT 15.8 H INR 1.3 APTT 28.6 Sodium 130 L Potassium 4.4 Chloride 98 Carbon Dioxide 20.0 L Anion Gap 12 BUN 23 H Creatinine 1.65 H Estim Creat Clear Calc 53.34 Est GFR (MDRD) Af Amer 54 L Est GFR (MDRD) Non-Af 44 L BUN/Creatinine Ratio 13.9 Glucose 82 Serum Osmolality Lactic Acid Calcium 8.0 L Total Bilirubin Direct Bilirubin AST ALT Alkaline Phosphatase Total Creatine Kinase Troponin I 0.821 H* Total Protein Albumin Globulin Triglycerides Cholesterol LDL Cholesterol VLDL Cholesterol HDL Cholesterol TSH Free T4 Urine Color Urine Clarity Urine pH Ur Specific [place] Urine Protein Urine Glucose (UA) Urine Ketones Urine Occult Blood Urine Nitrite Urine Bilirubin Urine Urobilinogen Ur Leukocyte Esterase Urine RBC Urine WBC Ur Squamous Epith Cells Amorphous Sediment Urine Bacteria Urine Mucus 11/23/18 11/23/18 11/24/18 21:10 21:10 01:10 WBC RBC Hgb Hct MCV MCH MCHC RDW RDW Differential Plt Count MPV Immature Gran % (Auto) Neut % (Auto) Lymph % (Auto) [place] % (Auto) Eos % (Auto) Baso % (Auto) Absolute Neuts (auto) Absolute Lymphs (auto) Total Counted PT INR APTT Sodium Potassium Chloride Carbon Dioxide Anion Gap BUN Creatinine Estim Creat Clear Calc Est GFR (MDRD) Af Amer Est GFR (MDRD) Non-Af BUN/Creatinine Ratio Glucose Serum Osmolality Lactic Acid 5.2 H* 3.7 H Calcium Total Bilirubin Direct Bilirubin AST ALT Alkaline Phosphatase Total Creatine Kinase 74595 H Troponin I Total Protein Albumin Globulin Triglycerides Cholesterol LDL Cholesterol VLDL Cholesterol HDL Cholesterol TSH Free T4 Urine Color Urine Clarity Urine pH Ur Specific [place] Urine Protein Urine Glucose (UA) Urine Ketones Urine Occult Blood Urine Nitrite Urine Bilirubin Urine Urobilinogen Ur Leukocyte Esterase Urine RBC Urine WBC Ur Squamous Epith Cells Amorphous Sediment Urine Bacteria Urine Mucus 11/24/18 11/24/18 11/24/18 01:50 05:00 05:00 WBC 15.0 H RBC 3.97 L Hgb 11.4 L Hct 33.3 L MCV 83.9 MCH 28.7 MCHC 34.2 RDW 13.8 RDW Differential 41.8 Plt Count 159 MPV 11.3 Immature Gran % (Auto) 0.200 Neut % (Auto) 84.3 H Lymph % (Auto) 6.9 L [place] % (Auto) 8.5 Eos % (Auto) 0.0 Baso % (Auto) 0.1 Absolute Neuts (auto) 12.6 H Absolute Lymphs (auto) 1.04 Total Counted Not Reportable PT INR APTT Sodium Potassium Chloride Carbon Dioxide Anion Gap BUN Creatinine Estim Creat Clear Calc Est GFR (MDRD) Af Amer Est GFR (MDRD) Non-Af BUN/Creatinine Ratio Glucose Serum Osmolality Lactic Acid Calcium Total Bilirubin Direct Bilirubin AST ALT Alkaline Phosphatase Total Creatine Kinase Troponin I 0.741 H* Total Protein Albumin Globulin Triglycerides Cholesterol LDL Cholesterol VLDL Cholesterol HDL Cholesterol TSH Free T4 Urine Color Karlee Urine Clarity Sl. Cloudy Urine pH 5.0 Ur Specific [place] 1.020 Urine Protein 100 H Urine Glucose (UA) Normal Urine Ketones 5 H Urine Occult Blood 250 H Urine Nitrite Negative Urine Bilirubin Negative Urine Urobilinogen Normal Ur Leukocyte Esterase 25 H Urine RBC 0-5 SEEN Urine WBC 0-5 SEEN Ur Squamous Epith Cells 0-5 SEEN Amorphous Sediment 1+ Urine Bacteria RARE Urine Mucus 1+ 11/24/18 11/24/18 11/24/18 05:00 05:00 05:00 WBC RBC Hgb Hct MCV MCH MCHC RDW RDW Differential Plt Count MPV Immature Gran % (Auto) Neut % (Auto) Lymph % (Auto) [place] % (Auto) Eos % (Auto) Baso % (Auto) Absolute Neuts (auto) Absolute Lymphs (auto) Total Counted PT INR APTT Sodium 129 L Potassium 4.1 Chloride 94 L Carbon Dioxide 23.0 Anion Gap 12 BUN 29 H Creatinine 1.91 H Estim Creat Clear Calc 46.08 Est GFR (MDRD) Af Amer 45 L Est GFR (MDRD) Non-Af 38 L BUN/Creatinine Ratio 15.2 Glucose 280 H Serum Osmolality Lactic Acid Calcium 7.4 L Total Bilirubin Direct Bilirubin AST ALT Alkaline Phosphatase Total Creatine Kinase 30334 H Troponin I 0.628 H* Total Protein Albumin Globulin Triglycerides Cholesterol LDL Cholesterol VLDL Cholesterol HDL Cholesterol TSH Free T4 Urine Color Urine Clarity Urine pH Ur Specific [place] Urine Protein Urine Glucose (UA) Urine Ketones Urine Occult Blood Urine Nitrite Urine Bilirubin Urine Urobilinogen Ur Leukocyte Esterase Urine RBC Urine WBC Ur Squamous Epith Cells Amorphous Sediment Urine Bacteria Urine Mucus 11/24/18 11/24/18 11/24/18 05:00 05:00 05:00 WBC RBC Hgb Hct MCV MCH MCHC RDW RDW Differential Plt Count MPV Immature Gran % (Auto) Neut % (Auto) Lymph % (Auto) [place] % (Auto) Eos % (Auto) Baso % (Auto) Absolute Neuts (auto) Absolute Lymphs (auto) Total Counted PT INR APTT Sodium Potassium Chloride Carbon Dioxide Anion Gap BUN Creatinine Estim Creat Clear Calc Est GFR (MDRD) Af Amer Est GFR (MDRD) Non-Af BUN/Creatinine Ratio Glucose Serum Osmolality Lactic Acid 3.0 H Calcium Total Bilirubin 0.90 Direct Bilirubin 0.25 AST 531 H ALT 143 H Alkaline Phosphatase 77 Total Creatine Kinase Troponin I Total Protein 5.3 L Albumin 2.8 L Globulin 2.5 Triglycerides 51 Cholesterol 75 LDL Cholesterol 13 VLDL Cholesterol 10 HDL Cholesterol 52 TSH 2.25 Free T4 1.67 H Urine Color Urine Clarity Urine pH Ur Specific [place] Urine Protein Urine Glucose (UA) Urine Ketones Urine Occult Blood Urine Nitrite Urine Bilirubin Urine Urobilinogen Ur Leukocyte Esterase Urine RBC Urine WBC Ur Squamous Epith Cells Amorphous Sediment Urine Bacteria Urine Mucus 11/24/18 06:45 WBC RBC Hgb Hct MCV MCH MCHC RDW RDW Differential Plt Count MPV Immature Gran % (Auto) Neut % (Auto) Lymph % (Auto) [place] % (Auto) Eos % (Auto) Baso % (Auto) Absolute Neuts (auto) Absolute Lymphs (auto) Total Counted PT INR APTT Sodium Potassium Chloride Carbon Dioxide Anion Gap BUN Creatinine Estim Creat Clear Calc Est GFR (MDRD) Af Amer Est GFR (MDRD) Non-Af BUN/Creatinine Ratio Glucose Serum Osmolality 274 L Lactic Acid Calcium Total Bilirubin Direct Bilirubin AST ALT Alkaline Phosphatase Total Creatine Kinase Troponin I Total Protein Albumin Globulin Triglycerides Cholesterol LDL Cholesterol VLDL Cholesterol HDL Cholesterol TSH Free T4 Urine Color Urine Clarity Urine pH Ur Specific [place] Urine Protein Urine Glucose (UA) Urine Ketones Urine Occult Blood Urine Nitrite Urine Bilirubin Urine Urobilinogen Ur Leukocyte Esterase Urine RBC Urine WBC Ur Squamous Epith Cells Amorphous Sediment Urine Bacteria Urine Mucus POC Glucose 11/24/18 11/24/18 08:01 01:34 POC Glucose 66 L 86 Assessment/Plan All Active Problems MARQUIS (acute kidney injury) (Acute) Metatarsal fracture (Acute) MARQUIS Rhabdomyolysis CPK levels are at 24K. likely related to recent fall. overnight he had some urine output but has only made 180cc since 5 AM likely in oliguric renal failure from rhabdomyolysis no acute indications for [employer] try lasix for today to see if we can drive urine output continue fluids d/w Dr ag
[2018-11-24] MEDS: Furosemide 40 MG/4 ML Vial IV (11:47)
--- NOTE | 2018-11-24 11:50 | CASEMGMT ---
SW attempted to meet w/pt, however he is very sleepy at this time. Two of pt's caretakers, Simón Baig and Ying, are at the bedside. As per Simón, pt does not have a guardian. 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 He states the other person on the demographics, Flavio Negro, is his warehouse packaging supervisor. Simón Jovanni states that he and Nelson Peoples, his director of casework department at [facility], are the main contact people for pt. Simón Nunezcini states that yesterday pt did not go to work and so went to sleep, and he was to call Simón Baig when he woke up. Simón Jovanni states he spoke to pt at 4pm and he was still sleeping. He states he called at 6pm and pt did not answer, so someone went out to the house, he thinks about 6:30pm. Simón Baig states he is concerned about pt being home alone at all. He asked about pt going to [facility]. SW explained will see when we are a little further along how pt is doing, and SW will speak w/pt directly about this. Pt has a cane and walker at home. SW called [facility] case management([phone]), Nelson Peoples is not in today. SW spoke w/Lisa Mcgovern. SW did express concern about how long pt may have truly been on the floor unable to get up. SW asked also about what services pt has. Lisa looked up the services and called back. She states pt has on site telephone sex worker, it's this SW's understanding that pt has someone available to call 13/04. In what she sees, pt does not have someone in the home from 11pm-6am. She states Nelson will know better exactly what pt's services are though and she will leave a note for Nelson to call this SW. She also spoke w/Meng Pritchett who is an certified legal investigator w/[facility], he is also aware of what happened yesterday w/pt. SW will continue to follow, will speak w/pt when he is able regarding discharge plan. DIOGENES Terrell, CAR RACER
[2018-11-24 11:55] LABS: Bedside Glucose 111 mg/dL (70-110)
[2018-11-24 17:16] LABS: Bedside Glucose 158 mg/dL (70-110)
[2018-11-24] MEDS: Insulin Lispro 100 UNIT/ML INSULN.PEN SQ (17:41)
[2018-11-24 21:01] LABS: Bedside Glucose 128 mg/dL (70-110)
[2018-11-24] MEDS: Acetaminophen 325 MG Tablet 650 MG PO (21:06)
[2018-11-24] MEDS: Pramipexole Di-HCl 0.5 MG Tablet PO (21:07)
[2018-11-24] MEDS: RisperiDONE 2 MG Tablet 4 MG PO (21:07)
[2018-11-24] MEDS: lamoTRIgine 100 MG Tablet 400 MG PO (21:07)
[2018-11-25] VITALS (24 sets, daily range): BP systolic 96–140; BP diastolic 52–74; PULSE 66–97; RESP 10–22; TEMP 36.1–36.7; O2SAT 93–99
[2018-11-25] MEDS: 0.9% Normal Saline 1,000 ML 250 ML IV ×5 (02:16→20:32)
[2018-11-25] MEDS: Acetaminophen 325 MG Tablet 650 MG PO (03:10)
[2018-11-25 05:02] LABS: Absolute Lymphocyte Count 0.76 X10^3/ul (0.83-4.51); Absolute Neutrophil Count 11.8 X10^3/uL (2.0-7.7); Basophil# 0.01 X10^3/uL; Basophil% 0.1 % (0-1); Eosinophil# 0.01 X10^3/uL; Eosinophils% 0.1 % (0-5); Hematocrit 33.4 % (40-54); Hemoglobin 11.4 g/dl (13.0-16.5); Lymphocyte # 0.76 X10^3/ul (4.0); Lymphocyte % 5.6 % (19-41); Mean Corp Hgb Conc 34.1 g/gl (32-36); Mean Corpuscular Hgb 28.9 pg (27.0-32.0); Mean Corpuscular Volume 84.8 fL (80-94); Mean Platelet Vol. 10.7 fl (6.2-12.0); Monocyte# 0.95 X10^3/uL; Neutrophil # 11.84 X10^3/uL (2.7-7.7); Neutrophil % 86.8 % (47-70); Platelet Count 126 K/mm3 (150-450); RBC Distribution Width CV 13.7 % (11.6-14.6); RBC Distribution Width SD 41.6 fl (35.1-43.9); Red Blood Count 3.94 M/mm3 (4.6-6.2); White Blood Count 13.6 K/mm3 (4.4-11.0)
[2018-11-25 05:05] LABS: POSITIVE COUNT NO; POSITIVE DIFFERENTIAL NO; POSITIVE MORPHOLOGY NO
[2018-11-25] MEDS: Levothyroxine 175 MCG Tablet PO (05:15)
[2018-11-25] MEDS: Glycerin/Hypromellose/PEG400 15 ml Bottle 1 DRP EACH EYE (05:16)
[2018-11-25] MEDS: 0.9% NaCl Peripheral Flush Adult/Peds IV (05:17)
[2018-11-25 05:56] LABS: Anion Gap 11 (5-15); BUN 44 mg/dL (7-18); CPK Total, Creatine Kinase 12320 U/L (39-308); Calcium,Total 7.3 mg/dL (8.5-10.1); Chloride 106 mmol/L (98-107); Creatinine, Serum 3.15 mg/dL (0.70-1.30); EST Glomerular Filtration Rate 21 mL/min (>60); Est Glom Filt Rate - Afr Amer 26 mL/min (>60); Estimated Creatinine Clearance 27.94 ml/min; Glucose 106 mg/dL (74-106); Potassium 3.5 mmol/L (3.5-5.1); Sodium Level 137 mmol/L (136-145)
[2018-11-25] MEDS: BACITRACIN 15 GM Tube 1 APPLIC TOPICAL ×3 (06:22→21:51)
--- NOTE | 2018-11-25 06:42 | PN_ITS ---
Subjective: The patient was seen and examined at the bedside this morning. Events from the last 24 hours have been reviewed. The patient is currently afebrile, hemodynamically stable and maintaining appropriate oxygen saturations on room air. The patient's CK level is down to 12,000 this morning. However, his creatinine has increased to greater than 3. His urine output has been falling. He is currently documented to be overall net +6.3 L for the admission. The patient was evaluated by speech therapy yesterday, who recommended a mechanical soft diet with thin liquids. Objective: The patient's most recent lab work, culture data and imaging studies have all been personally reviewed. Blood and urine cultures are pending. Surface echocardiogram revealed evidence of a mildly dilated LV with mild concentric LVH and an ejection fraction of 50%. General: Alert, No apparent distress, Confused HEENT: Atraumatic, PERRLA, Normocephalic Oral: Moist Mucosa Neck: Supple, No Nodes, Trachea Midline Lungs: Diminished, - - Moist cough with poor inspiratory effort Cardiovascular: Regular rate, Regular Rhythm, Normal S1, Normal S2, No murmurs Abdomen: Bowel Sounds Present, Soft, Non Tender, Obese Extremities: No clubbing, No cyanosis, No edema Skin: - - No significant change from previous Musculoskeletal: No Muscle Wasting Lymphatic: No Cervical, Supraclavicular, or Inguinal Adenopathy Neurological: Neuro grossly intact, - - Diffuse generalized weakness noted. Vital Signs Temp Pulse Resp BP Pulse Ox 36.7 C 84 19 H 109/60 93 11/25/18 03:00 11/25/18 06:00 11/25/18 06:00 11/25/18 06:00 11/25/18 06:00 Oxygen Flow Rate (L/min) 2 Oxygen Delivery Method Room Air Weight: 265 lb 10.512 oz Body Mass Index (BMI) 31.1 Finger Stick Blood Glucose 145 Intake and Output for Last 24 Hours 11/23/18 11/24/18 11/25/18 23:59 23:59 23:59 Intake Total 7025 / 7025 1644 / 1644 Output Total 1800 / 1800 550 / 550 Balance 5225 / 5225 1094 / 1094 Labs (Last 48 Hours) 11/23/18 11/23/18 11/23/18 21:10 21:10 21:10 WBC 17.0 H RBC 4.27 L Hgb 12.3 L Hct 36.0 L MCV 84.3 MCH 28.8 MCHC 34.2 RDW 13.7 RDW Differential 41.8 Plt Count 195 MPV 11.9 Immature Gran % (Auto) 0.200 Neut % (Auto) 86.9 H Lymph % (Auto) 7.5 L [place] % (Auto) 5.3 Eos % (Auto) 0.0 Baso % (Auto) 0.1 Absolute Neuts (auto) 14.8 H Absolute Lymphs (auto) 1.27 Total Counted Not Reportable PT 15.8 H INR 1.3 APTT 28.6 Sodium 130 L Potassium 4.4 Chloride 98 Carbon Dioxide 20.0 L Anion Gap 12 BUN 23 H Creatinine 1.65 H Estim Creat Clear Calc 53.34 Est GFR (MDRD) Af Amer 54 L Est GFR (MDRD) Non-Af 44 L BUN/Creatinine Ratio 13.9 Glucose 82 Serum Osmolality Lactic Acid Calcium 8.0 L Total Bilirubin Direct Bilirubin AST ALT Alkaline Phosphatase Total Creatine Kinase Troponin I 0.821 H* Total Protein Albumin Globulin Triglycerides Cholesterol LDL Cholesterol VLDL Cholesterol HDL Cholesterol TSH Free T4 Urine Color Urine Clarity Urine pH Ur Specific [place] Urine Protein Urine Glucose (UA) Urine Ketones Urine Occult Blood Urine Nitrite Urine Bilirubin Urine Urobilinogen Ur Leukocyte Esterase Urine RBC Urine WBC Ur Squamous Epith Cells Amorphous Sediment Urine Bacteria Urine Mucus POC Glucose 11/23/18 11/23/18 11/24/18 21:10 21:10 01:10 WBC RBC Hgb Hct MCV MCH MCHC RDW RDW Differential Plt Count MPV Immature Gran % (Auto) Neut % (Auto) Lymph % (Auto) [place] % (Auto) Eos % (Auto) Baso % (Auto) Absolute Neuts (auto) Absolute Lymphs (auto) Total Counted PT INR APTT Sodium Potassium Chloride Carbon Dioxide Anion Gap BUN Creatinine Estim Creat Clear Calc Est GFR (MDRD) Af Amer Est GFR (MDRD) Non-Af BUN/Creatinine Ratio Glucose Serum Osmolality Lactic Acid 5.2 H* 3.7 H Calcium Total Bilirubin Direct Bilirubin AST ALT Alkaline Phosphatase Total Creatine Kinase 47198 H Troponin I Total Protein Albumin Globulin Triglycerides Cholesterol LDL Cholesterol VLDL Cholesterol HDL Cholesterol TSH Free T4 Urine Color Urine Clarity Urine pH Ur Specific [place] Urine Protein Urine Glucose (UA) Urine Ketones Urine Occult Blood Urine Nitrite Urine Bilirubin Urine Urobilinogen Ur Leukocyte Esterase Urine RBC Urine WBC Ur Squamous Epith Cells Amorphous Sediment Urine Bacteria Urine Mucus POC Glucose 11/24/18 11/24/18 11/24/18 01:34 01:50 05:00 WBC RBC Hgb Hct MCV MCH MCHC RDW RDW Differential Plt Count MPV Immature Gran % (Auto) Neut % (Auto) Lymph % (Auto) [place] % (Auto) Eos % (Auto) Baso % (Auto) Absolute Neuts (auto) Absolute Lymphs (auto) Total Counted PT INR APTT Sodium Potassium Chloride Carbon Dioxide Anion Gap BUN Creatinine Estim Creat Clear Calc Est GFR (MDRD) Af Amer Est GFR (MDRD) Non-Af BUN/Creatinine Ratio Glucose Serum Osmolality Lactic Acid Calcium Total Bilirubin Direct Bilirubin AST ALT Alkaline Phosphatase Total Creatine Kinase Troponin I 0.741 H* Total Protein Albumin Globulin Triglycerides Cholesterol LDL Cholesterol VLDL Cholesterol HDL Cholesterol TSH Free T4 Urine Color [place] Urine Clarity Sl. Cloudy Urine pH 5.0 Ur Specific [place] 1.020 Urine Protein 100 H Urine Glucose (UA) Normal Urine Ketones 5 H Urine Occult Blood 250 H Urine Nitrite Negative Urine Bilirubin Negative Urine Urobilinogen Normal Ur Leukocyte Esterase 25 H Urine RBC 0-5 SEEN Urine WBC 0-5 SEEN Ur Squamous Epith Cells 0-5 SEEN Amorphous Sediment 1+ Urine Bacteria RARE Urine Mucus 1+ POC Glucose 86 11/24/18 11/24/18 11/24/18 05:00 05:00 05:00 WBC 15.0 H RBC 3.97 L Hgb 11.4 L Hct 33.3 L MCV 83.9 MCH 28.7 MCHC 34.2 RDW 13.8 RDW Differential 41.8 Plt Count 159 MPV 11.3 Immature Gran % (Auto) 0.200 Neut % (Auto) 84.3 H Lymph % (Auto) 6.9 L [place] % (Auto) 8.5 Eos % (Auto) 0.0 Baso % (Auto) 0.1 Absolute Neuts (auto) 12.6 H Absolute Lymphs (auto) 1.04 Total Counted Not Reportable PT INR APTT Sodium 129 L Potassium 4.1 Chloride 94 L Carbon Dioxide 23.0 Anion Gap 12 BUN 29 H Creatinine 1.91 H Estim Creat Clear Calc 46.08 Est GFR (MDRD) Af Amer 45 L Est GFR (MDRD) Non-Af 38 L BUN/Creatinine Ratio 15.2 Glucose 280 H Serum Osmolality Lactic Acid Calcium 7.4 L Total Bilirubin Direct Bilirubin AST ALT Alkaline Phosphatase Total Creatine Kinase Troponin I 0.628 H* Total Protein Albumin Globulin Triglycerides Cholesterol LDL Cholesterol VLDL Cholesterol HDL Cholesterol TSH Free T4 Urine Color Urine Clarity Urine pH Ur Specific [place] Urine Protein Urine Glucose (UA) Urine Ketones Urine Occult Blood Urine Nitrite Urine Bilirubin Urine Urobilinogen Ur Leukocyte Esterase Urine RBC Urine WBC Ur Squamous Epith Cells Amorphous Sediment Urine Bacteria Urine Mucus POC Glucose 11/24/18 11/24/18 11/24/18 05:00 05:00 05:00 WBC RBC Hgb Hct MCV MCH MCHC RDW RDW Differential Plt Count MPV Immature Gran % (Auto) Neut % (Auto) Lymph % (Auto) [place] % (Auto) Eos % (Auto) Baso % (Auto) Absolute Neuts (auto) Absolute Lymphs (auto) Total Counted PT INR APTT Sodium Potassium Chloride Carbon Dioxide Anion Gap BUN Creatinine Estim Creat Clear Calc Est GFR (MDRD) Af Amer Est GFR (MDRD) Non-Af BUN/Creatinine Ratio Glucose Serum Osmolality Lactic Acid 3.0 H Calcium Total Bilirubin Direct Bilirubin AST ALT Alkaline Phosphatase Total Creatine Kinase 45422 H Troponin I Total Protein Albumin Globulin Triglycerides 51 Cholesterol 75 LDL Cholesterol 13 VLDL Cholesterol 10 HDL Cholesterol 52 TSH Free T4 Urine Color Urine Clarity Urine pH Ur Specific [place] Urine Protein Urine Glucose (UA) Urine Ketones Urine Occult Blood Urine Nitrite Urine Bilirubin Urine Urobilinogen Ur Leukocyte Esterase Urine RBC Urine WBC Ur Squamous Epith Cells Amorphous Sediment Urine Bacteria Urine Mucus POC Glucose 11/24/18 11/24/18 11/24/18 05:00 06:45 08:01 WBC RBC Hgb Hct MCV MCH MCHC RDW RDW Differential Plt Count MPV Immature Gran % (Auto) Neut % (Auto) Lymph % (Auto) [place] % (Auto) Eos % (Auto) Baso % (Auto) Absolute Neuts (auto) Absolute Lymphs (auto) Total Counted PT INR APTT Sodium Potassium Chloride Carbon Dioxide Anion Gap BUN Creatinine Estim Creat Clear Calc Est GFR (MDRD) Af Amer Est GFR (MDRD) Non-Af BUN/Creatinine Ratio Glucose Serum Osmolality 274 L Lactic Acid Calcium Total Bilirubin 0.90 Direct Bilirubin 0.25 AST 531 H ALT 143 H Alkaline Phosphatase 77 Total Creatine Kinase Troponin I Total Protein 5.3 L Albumin 2.8 L Globulin 2.5 Triglycerides Cholesterol LDL Cholesterol VLDL Cholesterol HDL Cholesterol TSH 2.25 Free T4 1.67 H Urine Color Urine Clarity Urine pH Ur Specific [place] Urine Protein Urine Glucose (UA) Urine Ketones Urine Occult Blood Urine Nitrite Urine Bilirubin Urine Urobilinogen Ur Leukocyte Esterase Urine RBC Urine WBC Ur Squamous Epith Cells Amorphous Sediment Urine Bacteria Urine Mucus POC Glucose 66 L 11/24/18 11/24/18 11/24/18 11:46 16:55 20:52 WBC RBC Hgb Hct MCV MCH MCHC RDW RDW Differential Plt Count MPV Immature Gran % (Auto) Neut % (Auto) Lymph % (Auto) [place] % (Auto) Eos % (Auto) Baso % (Auto) Absolute Neuts (auto) Absolute Lymphs (auto) Total Counted PT INR APTT Sodium Potassium Chloride Carbon Dioxide Anion Gap BUN Creatinine Estim Creat Clear Calc Est GFR (MDRD) Af Amer Est GFR (MDRD) Non-Af BUN/Creatinine Ratio Glucose Serum Osmolality Lactic Acid Calcium Total Bilirubin Direct Bilirubin AST ALT Alkaline Phosphatase Total Creatine Kinase Troponin I Total Protein Albumin Globulin Triglycerides Cholesterol LDL Cholesterol VLDL Cholesterol HDL Cholesterol TSH Free T4 Urine Color Urine Clarity Urine pH Ur Specific [place] Urine Protein Urine Glucose (UA) Urine Ketones Urine Occult Blood Urine Nitrite Urine Bilirubin Urine Urobilinogen Ur Leukocyte Esterase Urine RBC Urine WBC Ur Squamous Epith Cells Amorphous Sediment Urine Bacteria Urine Mucus POC Glucose 111 H 158 H 128 H 11/25/18 11/25/18 04:55 04:55 WBC 13.6 H RBC 3.94 L Hgb 11.4 L Hct 33.4 L MCV 84.8 MCH 28.9 MCHC 34.1 RDW 13.7 RDW Differential 41.6 Plt Count 126 L MPV 10.7 Immature Gran % (Auto) 0.400 Neut % (Auto) 86.8 H Lymph % (Auto) 5.6 L [place] % (Auto) 7.0 Eos % (Auto) 0.1 Baso % (Auto) 0.1 Absolute Neuts (auto) 11.8 H Absolute Lymphs (auto) 0.76 L Total Counted Not Reportable PT INR APTT Sodium 137 Potassium 3.5 Chloride 106 Carbon Dioxide 20.0 L Anion Gap 11 BUN 44 H Creatinine 3.15 H Estim Creat Clear Calc 27.94 Est GFR (MDRD) Af Amer 26 L Est GFR (MDRD) Non-Af 21 L BUN/Creatinine Ratio 14.0 Glucose 106 Serum Osmolality Lactic Acid Calcium 7.3 L Total Bilirubin Direct Bilirubin AST ALT Alkaline Phosphatase Total Creatine Kinase 77987 H Troponin I Total Protein Albumin Globulin Triglycerides Cholesterol LDL Cholesterol VLDL Cholesterol HDL Cholesterol TSH Free T4 Urine Color Urine Clarity Urine pH Ur Specific [place] Urine Protein Urine Glucose (UA) Urine Ketones Urine Occult Blood Urine Nitrite Urine Bilirubin Urine Urobilinogen Ur Leukocyte Esterase Urine RBC Urine WBC Ur Squamous Epith Cells Amorphous Sediment Urine Bacteria Urine Mucus POC Glucose Clinical Impression(s) from Imaging Studies Brain CT 11/23/18 21:02 IMPRESSION: No acute intracranial abnormality. Multiple subcentimeter radiodense foreign bodies noted in the right forehead, right cheek and right eye. Electronically Signed: Aime Houser, at 22:02 EST Tel , Service support , Cervical Spine CT 11/23/18 21:03 IMPRESSION: No fracture or dislocation in the cervical spine. Bony fusion of C6/C7. Electronically Signed: Aime Houser, at 22:07 EST Tel , Service support , Chest X-Ray 11/23/18 21:10 IMPRESSION: Cardiomegaly. Clear lungs. Electronically Signed: Aime Houser, at 21:35 EST Tel , Service support , Medical Necessity - Tobacco Use Smoking Status: Never smoker Assessment/Plan All Active Problems MARQUIS (acute kidney injury) (Acute) Metatarsal fracture (Acute) RECOMMENDATIONS: 1. Continue dietary support taking into account speech therapy recommendations. 2. Aggressive physical therapy 3. Continue supplemental IV fluid hydration 4. Continue to monitor renal function closely. Await additional nephrology recommendations. IMPRESSIONS: 1. Fluid responsive hypotension The patient presented to the emergency department in a hypotensive state, which responded avidly to the use of supplemental IV fluid hydration. The patient remains hemodynamically stable at this time. There was never a requirement for vasopressors. 2. Acute kidney injury, likely secondary to rhabdomyolysis Nephrology is currently following. Continue aggressive supplemental IV fluid hydration. Continue to monitor urine output. No current indication for renal replacement therapy. CK improving this morning. 3. Elevated troponins Potentially related to demand ischemia in the setting of #1 and 2. Cardiology is currently following. Echocardiogram did reveal evidence of a mildly dilated LV with mild global hypokinesis. Ejection fraction was within normal limits. 4. Baseline MRDD/schizophrenia/bipolar disorder/unspecified seizure disorder/hypothyroidism/generalized deconditioning Complicates care, management, recovery and prognosis. Likely okay to continue home medications. Recommend aggressive physical therapy. This note was generated with D2S dictation software. It may contain incorrect words, spelling, and punctuation that were not noted in checking the note before signing. DISPOSITION: The patient is medically stable for transfer out of the intensive care unit. As the patient has no active ICU or pulmonary needs, will sign off. Please call with any additional questions. Code Visit Inpatient E&M: 68491 Subs Hosp L2
--- NOTE | 2018-11-25 06:51 | PN.CARD_ITS ---
Subjectve: Patient seen and evaluated. Awake and alert. No complaints. Objective: Vital Signs Temp Pulse Resp BP Pulse Ox 98.1 F 84 19 H 109/60 93 11/25/18 03:00 11/25/18 06:00 11/25/18 06:00 11/25/18 06:00 11/25/18 06:00 Oxygen Flow Rate (L/min) 2 Oxygen Delivery Method Room Air Weight: 265 lb 10.512 oz Body Mass Index (BMI) 31.1 Finger Stick Blood Glucose 145 Intake and Output for Last 24 Hours 11/23/18 11/24/18 11/25/18 23:59 23:59 23:59 Intake Total 7025 / 7025 1644 / 1644 Output Total 1800 / 1800 550 / 550 Balance 5225 / 5225 1094 / 1094 General: Awake, Alert, Oriented x 3 HEENT: PERRL, EOMI, Sclera Non Icteric Neck: Supple, Good ROM, No Lymph Node Enlargement Lungs: Clear to auscultation Cardiovascular: Regular Rhythm, Normal S1, Normal S2, No Murmurs, No Rubs, No Gallops Vascular: No Carotid Bruits, Normal Femoral Pulses, Normal Radial Pulses, Normal Dorsalis Pedal Pulse, Normal Posterior Tibial Pulses Abdomen: Bowel Sounds Present, Soft, Non Tender, No HSM, No Organomegaly Extremities: No Cyanosis, No Clubbing, No edema Neurological: No Focal Motor or Sensory Deficit Psych/Mental Status: Appropriate 11/24/18 05:00: Total Bilirubin 0.90, Direct Bilirubin 0.25 11/24/18 06:45: Serum Osmolality 274 L 11/25/18 04:55: WBC 13.6 H, RBC 3.94 L, Hgb 11.4 L, Hct 33.4 L, MCV 84.8, MCH 28.9, MCHC 34.1, RDW 13.7, RDW Differential 41.6, Plt Count 126 L, MPV 10.7, Immature Gran % (Auto) 0.400, Neut % (Auto) 86.8 H, Lymph % (Auto) 5.6 L, [place] % (Auto) 7.0, Eos % (Auto) 0.1, Baso % (Auto) 0.1, Absolute Neuts (auto) 11.8 H, Total Counted Not Reportable 11/25/18 04:55: Sodium 137, Potassium 3.5, Chloride 106, Carbon Dioxide 20.0 L, Anion Gap 11, BUN 44 H, Creatinine 3.15 H, Est GFR (MDRD) Af Amer 26 L, Est GFR (MDRD) Non-Af 21 L, BUN/Creatinine Ratio 14.0, Glucose 106, Calcium 7.3 L Rhythm: EKG: ECHO: Stress Test: Cardiac Cath: PCI: CT Surgery: Holter monitor: EPS: PPM: CXR: Chest CT Scan: Medical Necessity - Tobacco Use Smoking Status: Never smoker Assessment/Plan 68 y/o admitted after being found down in his house 1. Rhabdomyolysis due to fall * CPK was >24,000 * was hypotensive on admission as well. Unfortunately this has resulted in a decline in his renal function. His blood pressure however appears to be better at this time. * hydrate with IVF NS @ 250cc/hr, and monitor CPK * * Echo to assess LV function--this demonstrated global reduction in ejection fraction estimated at 50% 2. Elevated troponins * initial troponin is 0.821; could be due to demand ischemia as his BP was in 50s systolic on admission * EKG showed no acute ST changes. * * * Aspirin 81 mg daily. * Further recommendations will depend on how he does and recovers from his rhabdomyolysis. His renal function also need to be monitored as it seems to be worsening for now. * * Thank you for allowing me to participate in the care of your patient. Please don't hesitate to call if any issues arise
[2018-11-25] MEDS: Budesonide Respules 0.5 MG/2 ML AMPUL.NEB. INHALATION ×2 (06:53→19:05)
[2018-11-25] MEDS: Aspirin 81 MG TAB.CHEW PO (08:25)
[2018-11-25] MEDS: RisperiDONE 1 MG Tablet 3 MG PO (08:25)
[2018-11-25 08:56] LABS: Bedside Glucose 117 mg/dL (70-110)
--- NOTE | 2018-11-25 09:37 | CASEMGMT ---
Addendum entered by Lynn Tomlin 11/25/18 13:02: SW faxed referral to [facility]. DIOGENES Terrell, STEEP TENDER Original Note: Addendum entered by Lynn Tomlin 11/25/18 12:47: TCU has no bed availability. SW called [facility] to check on bed availability, message left and referral will be faxed. SW will continue to follow. DIOGENES Terrell, STEEP TENDER Original Note: SW spoke w/pt today in ICU. Pt explained he fell at home and called for help, but nobody came to help him. He states he tried to get up but was not able to do so. SW asked pt about discharge plan, pt may be agreeable to go somewhere for rehab, states he has not done this in the past and is not certain where he would go for this. SW asked if Nelson, his case mgr would be able to help with this. Pt states is okay for SW to call and also asked if Nelosn can come see him. SW explained will call Nelson to ask him about places for rehab and to see if he can come see the pt. Pt did also tell this SW that he goes to day care every day until 2:30pm. SW called the office of DD, spoke w/pt's case mgr Nelson Peoples. Nelson confirms pt has caretakers who stay w/pt each evening from 11p-9a and in the afternoon from 4:30p-7:30pm. He states that staff comes in also to assist with insulin. Nelson confirmed pt goes to day care each day until 2:30pm at a program called [facility]. SW asked Nelson about coming to see the pt, he will come in today to see him. SW also asked Nelson about pt going somewhere for rehab, Nelson does not have a preference for where pt goes for rehab, but thought pt staying in [place] would be helpful. SW explained can try for the hospital unit first, the TCU, and see if there are beds. If not, SW can try other facilities in [place]. SW spoke w/pt again, explained that Nelson from the office of DD will be in to see pt. Pt asked this SW who Nelson is. SW explained that Nelson is his case mgr. Pt did not seem to know now who Nelson is. SW again explained Nelson is his case mgr and sets up his services. Pt asked SW about Anand, one of his caretakers. SW explained that Anand was here yesterday. SW asked pt again about going somewhere for rehab. Pt agreeable. Pt is agreeable to go to TCU, and if TCU does not have a bed pt is agreeable to a referral to another snf. SW explained will find out about TCU, and if there is no bed will make a referral to another facility in [place]. Pt states understanding. SW called TCU, message left inquiring about bed availability. SW will continue to follow. DIOGENES Terrell, STEEP TENDER
[2018-11-25] MEDS: DULoxetine Hcl 30 MG Capsule PO (10:50)
[2018-11-25] MEDS: lamoTRIgine 100 MG Tablet 200 MG PO (10:50)
[2018-11-25] MEDS: Benztropine 2 MG Tablet 1 MG PO ×2 (10:50→21:52)
[2018-11-25] MEDS: levETIRAcetam 750 MG Tablet 1500 MG PO ×2 (10:50→21:54)
[2018-11-25] MEDS: Enoxaparin 30 MG/0.3 ML Syringe SC (10:51)
[2018-11-25 11:10] LABS: Bedside Glucose 146 mg/dL (70-110)
--- NOTE | 2018-11-25 14:50 | PCM.PN.HOSP ---
Patient Problems: Active and Suspected Problems MARQUIS (acute kidney injury) (Acute) Subjective: No issues overnight, seems to be much more awake today. Vitals/I&O's: Vital Signs Temp Pulse Resp BP Pulse Ox 97.0 F L 72 18 122/64 H 99 11/25/18 14:27 11/25/18 14:27 11/25/18 14:27 11/25/18 14:27 11/25/18 14:27 Oxygen Flow Rate (L/min) 2 Oxygen Delivery Method Room Air Weight: 265 lb 10.512 oz Body Mass Index (BMI) 31.1 Finger Stick Blood Glucose 145 Intake and Output for Last 24 Hours 11/23/18 11/24/18 11/25/18 23:59 23:59 23:59 Intake Total 7025 / 7025 4111 / 4111 Output Total 1800 / 1800 1050 / 1050 Balance 5225 / 5225 3061 / 3061 General: Alert, Oriented x3, Cooperative, No apparent distress HEENT: Atraumatic, EOMI, Normocephalic Oral: Moist Mucosa Neck: Supple, No JVD, Trachea Midline Lungs: Clear to auscultation, Normal air movement, No rhonchi, No wheeze, Diminished Cardiovascular: Regular rate, Regular Rhythm, Normal S1, Normal S2, No murmurs Abdomen: Soft, Non Tender, Non-Distended, No Hepato-splenomegaly, Obese Extremities: No edema, Capillary Refill Less than 3 Seconds Skin: No rashes, No breakdown Neurological: Neuro grossly intact, Sensory exam intact to light touch and pain Psych/Mental Status: Flat Affect Microbiology Past 72 Hours 11/24/18 11:40 Urine Catheter - Lane Urine Culture - Preliminary Culture exhibits no growth. Laboratory Results 11/24/18 16:55: POC Glucose 158 H 11/24/18 20:52: POC Glucose 128 H 11/25/18 04:55: WBC 13.6 H, RBC 3.94 L, Hgb 11.4 L, Hct 33.4 L, MCV 84.8, MCH 28.9, MCHC 34.1, RDW 13.7, RDW Differential 41.6, Plt Count 126 L, MPV 10.7, Immature Gran % (Auto) 0.400, Neut % (Auto) 86.8 H, Lymph % (Auto) 5.6 L, [place] % (Auto) 7.0, Eos % (Auto) 0.1, Baso % (Auto) 0.1, Absolute Neuts (auto) 11.8 H, Absolute Lymphs (auto) 0.76 L, Total Counted Not Reportable 11/25/18 04:55: Sodium 137, Potassium 3.5, Chloride 106, Carbon Dioxide 20.0 L, Anion Gap 11, BUN 44 H, Creatinine 3.15 H, Estim Creat Clear Calc 27.94, Est GFR (MDRD) Af Amer 26 L, Est GFR (MDRD) Non-Af 21 L, BUN/Creatinine Ratio 14.0, Glucose 106, Calcium 7.3 L, Total Creatine Kinase 20903 H 11/25/18 08:19: POC Glucose 117 H 11/25/18 10:55: POC Glucose 146 H Current Medications Acetaminophen (Tylenol) 650 mg PO Q6H PRN PRN PRN Reason: Fever >101/Pain Last Admin: 11/25/18 03:10 Dose: 650 mg Artificial Tears (Tears Naturale, Artificial Tears) 1 drop EACH EYE TID [facility] Last Admin: 11/25/18 14:28 Dose: 1 drop Aspirin (Aspirin, Baby) 81 mg PO DAILY@0800 [facility] Last Admin: 11/25/18 08:25 Dose: 81 mg Bacitracin (Bacitracin Ointment) 1 applic TOPICAL BID [facility]; Protocol Last Admin: 11/25/18 10:51 Dose: 1 applic Benztropine Mesylate (Cogentin) 1 mg PO BID [facility] Last Admin: 11/25/18 10:50 Dose: 1 mg Budesonide (Pulmicort Aerosol) 0.5 mg INHALATION Q12H.RT [facility] Last Admin: 11/25/18 06:53 Dose: 0.5 mg Dextrose (D50w Syringe) 0 gm IV X1 PRN; Protocol PRN Reason: Hypoglycemia Duloxetine HCl (Cymbalta) 30 mg PO DAILY [facility] Last Admin: 11/25/18 10:50 Dose: 30 mg Enoxaparin Sodium (Lovenox) 30 mg SC DAILY@1000 [facility] Last Admin: 11/25/18 10:51 Dose: 30 mg Gabapentin (Neurontin) 300 mg PO DAILY PRN PRN PRN Reason: R FOOT Glucagon () 1 mg IM .X1 PRN PRN Reason: Hypoglycemia Sodium Chloride () 250 mls @ 15 mls/hr IV .[id number] PRN PRN Reason: SALINE FLUSH Sodium Chloride () 1,000 mls @ 250 mls/hr IV .Q4H [facility] Last Admin: 11/25/18 14:30 Dose: Not Given Insulin Glargine (Lantus (Bk)) 25 units SC DAILY [facility] Last Admin: 11/25/18 10:56 Dose: 25 units Insulin Human Lispro (Humalog Kwikpen ([facility])) 0 unit SQ ACHS [facility]; Protocol Last Admin: 11/25/18 10:57 Dose: Not Given Lamotrigine (Lamictal) 200 mg PO DAILY [facility] Last Admin: 11/25/18 10:50 Dose: 200 mg Lamotrigine (Lamictal) 400 mg PO QHS [facility] Last Admin: 11/24/18 21:07 Dose: 400 mg Levetiracetam (Keppra Tablet) 1,500 mg PO BID [facility] Last Admin: 11/25/18 10:50 Dose: 1,500 mg Levothyroxine Sodium (Synthroid) 175 mcg PO DAILY@0600 [facility] Last Admin: 11/25/18 05:15 Dose: 175 mcg Magnesium Hydroxide (Milk Of Magnesia) 30 ml PO DAILY PRN PRN PRN Reason: Constipation Pramipexole Dihydrochloride (Mirapex) 0.5 mg PO QHS [facility] Last Admin: 11/24/18 21:07 Dose: 0.5 mg Risperidone (Risperdal) 3 mg PO BREAKFAST [facility] Last Admin: 11/25/18 08:25 Dose: 3 mg Risperidone (Risperdal) 4 mg PO QHS [facility] Last Admin: 11/24/18 21:07 Dose: 4 mg Sodium Chloride () 5 - 15 ml IV UD PRN PRN Reason: SALINE FLUSH Last Admin: 11/25/18 05:17 Dose: 10 ml Throat Lozenges (Cepacol Sore Throat Lozenge) 1 lozenge MUCOUS MEM Q2H PRN PRN PRN Reason: SORE THROAT Medical Necessity - Tobacco Use Smoking Status: Never smoker Assessment/Plan All Active Problems MARQUIS (acute kidney injury) (Acute) Metatarsal fracture (Acute) 1. Rhabdomyolysis with acute kidney injury and an elevated troponin/hypotension(resolved)/lactic acidosis(resolved) -His creatinine now has climbed to 3.15 today but he is 8 L positive therefore will slow down his IV fluid hydration -Lane is in place and he is making adequate urine now after a dose of Lasix yesterday -Transfer out of the ICU to PCU -CK on admission was greater than 24,000 now 12,000 -Troponin is likely secondary to demand ischemia and muscle breakdown from his rhabdo 2. Baseline MRDD/schizophrenia/bipolar disorder -Stable -Continue with risperidone 3. Hypothyroidism -Stable, TSH 2.25 -Continue with Synthroid 4. seizure disorder -Stable at the moment though unsure whether his fall was caused by a seizure -Continue with Keppra and Lamictal 5. IDDM 2 -Stable on his home regimen of Tresiba, edition to Lantus -Blood glucose stable continue with Accu-Cheks DVT: Lovenox Code Visit Inpatient E&M: 27960 Subs Hosp L2
--- NOTE | 2018-11-25 14:58 | PN_ITS ---
Patient Problems: Active and Suspected Problems MARQUIS (acute kidney injury) (Acute) Subjective: No issues overnight, seems to be much more awake today. Vitals/I&O's: Vital Signs Temp Pulse Resp BP Pulse Ox 97.0 F L 72 18 122/64 H 99 11/25/18 14:27 11/25/18 14:27 11/25/18 14:27 11/25/18 14:27 11/25/18 14:27 Oxygen Flow Rate (L/min) 2 Oxygen Delivery Method Room Air Weight: 265 lb 10.512 oz Body Mass Index (BMI) 31.1 Finger Stick Blood Glucose 145 Intake and Output for Last 24 Hours 11/23/18 11/24/18 11/25/18 23:59 23:59 23:59 Intake Total 7025 / 7025 4111 / 4111 Output Total 1800 / 1800 1050 / 1050 Balance 5225 / 5225 3061 / 3061 General: Alert, Oriented x3, Cooperative, No apparent distress HEENT: Atraumatic, EOMI, Normocephalic Oral: Moist Mucosa Neck: Supple, No JVD, Trachea Midline Lungs: Clear to auscultation, Normal air movement, No rhonchi, No wheeze, Diminished Cardiovascular: Regular rate, Regular Rhythm, Normal S1, Normal S2, No murmurs Abdomen: Soft, Non Tender, Non-Distended, No Hepato-splenomegaly, Obese Extremities: No edema, Capillary Refill Less than 3 Seconds Skin: No rashes, No breakdown Neurological: Neuro grossly intact, Sensory exam intact to light touch and pain Psych/Mental Status: Flat Affect Microbiology Past 72 Hours 11/24/18 11:40 Urine Catheter - Lane Urine Culture - Preliminary Culture exhibits no growth. Laboratory Results 11/24/18 16:55: POC Glucose 158 H 11/24/18 20:52: POC Glucose 128 H 11/25/18 04:55: WBC 13.6 H, RBC 3.94 L, Hgb 11.4 L, Hct 33.4 L, MCV 84.8, MCH 28.9, MCHC 34.1, RDW 13.7, RDW Differential 41.6, Plt Count 126 L, MPV 10.7, Immature Gran % (Auto) 0.400, Neut % (Auto) 86.8 H, Lymph % (Auto) 5.6 L, [place] % (Auto) 7.0, Eos % (Auto) 0.1, Baso % (Auto) 0.1, Absolute Neuts (auto) 11.8 H, Absolute Lymphs (auto) 0.76 L, Total Counted Not Reportable 11/25/18 04:55: Sodium 137, Potassium 3.5, Chloride 106, Carbon Dioxide 20.0 L, Anion Gap 11, BUN 44 H, Creatinine 3.15 H, Estim Creat Clear Calc 27.94, Est GFR (MDRD) Af Amer 26 L, Est GFR (MDRD) Non-Af 21 L, BUN/Creatinine Ratio 14.0, Glucose 106, Calcium 7.3 L, Total Creatine Kinase 48467 H 11/25/18 08:19: POC Glucose 117 H 11/25/18 10:55: POC Glucose 146 H Current Medications Acetaminophen (Tylenol) 650 mg PO Q6H PRN PRN PRN Reason: Fever >101/Pain Last Admin: 11/25/18 03:10 Dose: 650 mg Artificial Tears (Tears Naturale, Artificial Tears) 1 drop EACH EYE TID [facility] Last Admin: 11/25/18 14:28 Dose: 1 drop Aspirin (Aspirin, Baby) 81 mg PO DAILY@0800 [facility] Last Admin: 11/25/18 08:25 Dose: 81 mg Bacitracin (Bacitracin Ointment) 1 applic TOPICAL BID [facility]; Protocol Last Admin: 11/25/18 10:51 Dose: 1 applic Benztropine Mesylate (Cogentin) 1 mg PO BID [facility] Last Admin: 11/25/18 10:50 Dose: 1 mg Budesonide (Pulmicort Aerosol) 0.5 mg INHALATION Q12H.RT [facility] Last Admin: 11/25/18 06:53 Dose: 0.5 mg Dextrose (D50w Syringe) 0 gm IV X1 PRN; Protocol PRN Reason: Hypoglycemia Duloxetine HCl (Cymbalta) 30 mg PO DAILY [facility] Last Admin: 11/25/18 10:50 Dose: 30 mg Enoxaparin Sodium (Lovenox) 30 mg SC DAILY@1000 [facility] Last Admin: 11/25/18 10:51 Dose: 30 mg Gabapentin (Neurontin) 300 mg PO DAILY PRN PRN PRN Reason: R FOOT Glucagon () 1 mg IM .X1 PRN PRN Reason: Hypoglycemia Sodium Chloride () 250 mls @ 15 mls/hr IV .[id number] PRN PRN Reason: SALINE FLUSH Sodium Chloride () 1,000 mls @ 250 mls/hr IV .Q4H [facility] Last Admin: 11/25/18 14:30 Dose: Not Given Insulin Glargine (Lantus (Bk)) 25 units SC DAILY [facility] Last Admin: 11/25/18 10:56 Dose: 25 units Insulin Human Lispro (Humalog Kwikpen ([facility])) 0 unit SQ ACHS [facility]; Protocol Last Admin: 11/25/18 10:57 Dose: Not Given Lamotrigine (Lamictal) 200 mg PO DAILY [facility] Last Admin: 11/25/18 10:50 Dose: 200 mg Lamotrigine (Lamictal) 400 mg PO QHS [facility] Last Admin: 11/24/18 21:07 Dose: 400 mg Levetiracetam (Keppra Tablet) 1,500 mg PO BID [facility] Last Admin: 11/25/18 10:50 Dose: 1,500 mg Levothyroxine Sodium (Synthroid) 175 mcg PO DAILY@0600 [facility] Last Admin: 11/25/18 05:15 Dose: 175 mcg Magnesium Hydroxide (Milk Of Magnesia) 30 ml PO DAILY PRN PRN PRN Reason: Constipation Pramipexole Dihydrochloride (Mirapex) 0.5 mg PO QHS [facility] Last Admin: 11/24/18 21:07 Dose: 0.5 mg Risperidone (Risperdal) 3 mg PO BREAKFAST [facility] Last Admin: 11/25/18 08:25 Dose: 3 mg Risperidone (Risperdal) 4 mg PO QHS [facility] Last Admin: 11/24/18 21:07 Dose: 4 mg Sodium Chloride () 5 - 15 ml IV UD PRN PRN Reason: SALINE FLUSH Last Admin: 11/25/18 05:17 Dose: 10 ml Throat Lozenges (Cepacol Sore Throat Lozenge) 1 lozenge MUCOUS MEM Q2H PRN PRN PRN Reason: SORE THROAT Medical Necessity - Tobacco Use Smoking Status: Never smoker Assessment/Plan All Active Problems MARQUIS (acute kidney injury) (Acute) Metatarsal fracture (Acute) 1. Rhabdomyolysis with acute kidney injury and an elevated troponin/hypotension(resolved)/lactic acidosis(resolved) -His creatinine now has climbed to 3.15 today but he is 8 L positive therefore will slow down his IV fluid hydration -Lane is in place and he is making adequate urine now after a dose of Lasix yesterday -Transfer out of the ICU to PCU -CK on admission was greater than 24,000 now 12,000 -Troponin is likely secondary to demand ischemia and muscle breakdown from his rhabdo 2. Baseline MRDD/schizophrenia/bipolar disorder -Stable -Continue with risperidone 3. Hypothyroidism -Stable, TSH 2.25 -Continue with Synthroid 4. seizure disorder -Stable at the moment though unsure whether his fall was caused by a seizure -Continue with Keppra and Lamictal 5. IDDM 2 -Stable on his home regimen of Tresiba, edition to Lantus -Blood glucose stable continue with Accu-Cheks DVT: Lovenox Code Visit Inpatient E&M: 99804 Subs Hosp L2
--- NOTE | 2018-11-25 15:11 | PCM.PN.REN ---
Patient Problems: Active and Suspected Problems MARQUIS (acute kidney injury) (Acute) Subjective: no new events - Physical Exam HEENT: Atraumatic, PERRLA, EOMI, Normocephalic Neck: Supple, No JVD, Negative Carotid Bruits Lungs: Clear to auscultation, Normal air movement Cardiovascular: Regular rate, No murmurs Abdomen: Bowel Sounds Present, Soft, Non Tender Extremities: No edema, Capillary Refill Less than 3 Seconds Skin: No rashes, No breakdown Musculoskeletal: No Tenderness to Palpation of Joints or Extremities Vital Signs Temp Pulse Resp BP Pulse Ox 97.0 F L 72 18 122/64 H 99 11/25/18 14:27 11/25/18 14:27 11/25/18 14:27 11/25/18 14:27 11/25/18 14:27 Oxygen Flow Rate (L/min) 2 Oxygen Delivery Method Room Air Weight: 120.5 kg Body Mass Index (BMI) 31.1 Finger Stick Blood Glucose 145 Intake and Output for Last 24 Hours 11/23/18 11/24/18 11/25/18 23:59 23:59 23:59 Intake Total 7025 / 7025 4111 / 4111 Output Total 1800 / 1800 1050 / 1050 Balance 5225 / 5225 3061 / 3061 Microbiology Past 72 Hours 11/24/18 11:40 Urine Culture - Preliminary Urine Catheter - Lane Culture exhibits no growth. Laboratory Tests Past 24 Hrs 11/25/18 11/25/18 04:55 04:55 WBC 13.6 H RBC 3.94 L Hgb 11.4 L Hct 33.4 L MCV 84.8 MCH 28.9 MCHC 34.1 RDW 13.7 RDW Differential 41.6 Plt Count 126 L MPV 10.7 Immature Gran % (Auto) 0.400 Neut % (Auto) 86.8 H Lymph % (Auto) 5.6 L [place] % (Auto) 7.0 Eos % (Auto) 0.1 Baso % (Auto) 0.1 Absolute Neuts (auto) 11.8 H Absolute Lymphs (auto) 0.76 L Total Counted Not Reportable Sodium 137 Potassium 3.5 Chloride 106 Carbon Dioxide 20.0 L Anion Gap 11 BUN 44 H Creatinine 3.15 H Estim Creat Clear Calc 27.94 Est GFR (MDRD) Af Amer 26 L Est GFR (MDRD) Non-Af 21 L BUN/Creatinine Ratio 14.0 Glucose 106 Calcium 7.3 L Total Creatine Kinase 24071 H POC Glucose 11/25/18 11/25/18 11/24/18 10:55 08:19 20:52 POC Glucose 146 H 117 H 128 H 11/24/18 16:55 POC Glucose 158 H Medical Necessity - Tobacco Use Smoking Status: Never smoker Assessment/Plan All Active Problems MARQUIS (acute kidney injury) (Acute) Metatarsal fracture (Acute) MARQUIS Rhabdomyolysis CPK levels are at 24K. likely related to recent fall. today better and down to 12K Urine output is better unfortunately creatinine is higher. hopefully will peak soon continue IV fluids till then hold off [employer]
[2018-11-25 17:26] LABS: Bedside Glucose 115 mg/dL (70-110)
[2018-11-25] MEDS: lamoTRIgine 100 MG Tablet 400 MG PO (21:55)
[2018-11-25] MEDS: RisperiDONE 2 MG Tablet 4 MG PO (21:56)
[2018-11-25] MEDS: Pramipexole Di-HCl 0.5 MG Tablet PO (21:57)
[2018-11-25 23:01] LABS: Bedside Glucose 140 mg/dL (70-110)
[2018-11-26] VITALS (12 sets, daily range): BP systolic 118–151; BP diastolic 55–70; PULSE 67–83; RESP 16–20; TEMP 36.4–37.1; O2SAT 93–97
[2018-11-26] MEDS: 0.9% Normal Saline 1,000 ML 250 ML IV ×2 (00:13→04:13)
[2018-11-26] MEDS: Levothyroxine 175 MCG Tablet PO (05:49)
[2018-11-26 06:08] LABS: BUN 43 mg/dL (7-18); Creatinine, Serum 3.43 mg/dL (0.70-1.30); Estimated Creatinine Clearance 25.66 ml/min; Glucose 110 mg/dL (74-106)
[2018-11-26 06:09] LABS: Anion Gap 11 (5-15); BUN/Creat Ratio 12.5 RATIO (10-20); Calcium,Total 7.4 mg/dL (8.5-10.1); Chloride 112 mmol/L (98-107); EST Glomerular Filtration Rate 19 mL/min (>60); Est Glom Filt Rate - Afr Amer 23 mL/min (>60); Potassium 3.6 mmol/L (3.5-5.1); Sodium Level 141 mmol/L (136-145)
[2018-11-26 06:22] LABS: Absolute Lymphocyte Count 0.62 X10^3/ul (0.83-4.51); Absolute Neutrophil Count 10.6 X10^3/uL (2.0-7.7); Basophil# 0.01 X10^3/uL; Basophil% 0.1 % (0-1); Eosinophil# 0.06 X10^3/uL; Eosinophils% 0.5 % (0-5); Hematocrit 33.3 % (40-54); Lymphocyte # 0.62 X10^3/ul (4.0); Lymphocyte % 5.2 % (19-41); Mean Corpuscular Hgb 28.1 pg (27.0-32.0); Mean Corpuscular Volume 85.2 fL (80-94); Mean Platelet Vol. 11.2 fl (6.2-12.0); Monocyte# 0.68 X10^3/uL; Monocyte% 5.7 % (0-10); Neutrophil # 10.58 X10^3/uL (2.7-7.7); Neutrophil % 88.2 % (47-70); Platelet Count 133 K/mm3 (150-450); RBC Distribution Width CV 14.1 % (11.6-14.6); Red Blood Count 3.91 M/mm3 (4.6-6.2)
[2018-11-26 06:33] LABS: POSITIVE COUNT NO; POSITIVE DIFFERENTIAL NO; POSITIVE MORPHOLOGY NO
[2018-11-26 06:51] LABS: Bedside Glucose 116 mg/dL (70-110)
[2018-11-26] MEDS: Budesonide Respules 0.5 MG/2 ML AMPUL.NEB. INHALATION ×2 (07:16→19:11)
[2018-11-26] MEDS: lamoTRIgine 100 MG Tablet 200 MG PO (08:02)
[2018-11-26] MEDS: BACITRACIN 15 GM Tube 1 APPLIC TOPICAL ×2 (08:02→21:56)
[2018-11-26] MEDS: Benztropine 2 MG Tablet 1 MG PO ×2 (08:03→21:57)
[2018-11-26] MEDS: RisperiDONE 1 MG Tablet 3 MG PO (08:03)
[2018-11-26] MEDS: Aspirin 81 MG TAB.CHEW PO (08:03)
[2018-11-26] MEDS: levETIRAcetam 750 MG Tablet 1500 MG PO ×2 (08:03→21:58)
[2018-11-26] MEDS: DULoxetine Hcl 30 MG Capsule PO (08:04)
[2018-11-26] MEDS: Enoxaparin 30 MG/0.3 ML Syringe SC (08:04)
[2018-11-26 08:16] LABS: CPK Total, Creatine Kinase 6802 U/L (39-308)
[2018-11-26] MEDS: 0.9% Normal Saline 1,000 ML 150 ML IV ×3 (08:18→21:56)
--- NOTE | 2018-11-26 08:22 | NURSING ---
monitoring urine output very closely because of elevated CPK levels, will reassess when able to DC dykes
--- NOTE | 2018-11-26 09:15 | CASEMGMT ---
DONAVON received a voice mail from Nelly at [facility]. She had several questions regarding patient. DONAVON called her back and answered her questions. She said she will let staff know and get back to DONAVON. Zofia LUCERO
--- NOTE | 2018-11-26 10:34 | PCM.PN.HOSP ---
Patient Problems: Active and Suspected Problems MARQUIS (acute kidney injury) (Acute) Subjective: No issues overnight, doing well without any issues today. Vitals/I&O's: Vital Signs Temp Pulse Resp BP Pulse Ox 97.6 F L 74 18 132/55 H 97 11/26/18 09:00 11/26/18 09:00 11/26/18 09:00 11/26/18 09:00 11/26/18 09:00 Oxygen Flow Rate (L/min) 2 Oxygen Delivery Method Room Air Weight: 280 lb 3.32 oz Body Mass Index (BMI) 31.1 Finger Stick Blood Glucose 145 Intake and Output for Last 24 Hours 11/24/18 11/25/18 11/26/18 23:59 23:59 23:59 Intake Total 7025 / 7025 6254 / 6254 1465 / 1465 Output Total 1800 / 1800 1950 / 1950 325 / 325 Balance 5225 / 5225 4304 / 4304 1140 / 1140 General: Alert, Oriented x3, Cooperative, No apparent distress HEENT: Atraumatic, EOMI, Normocephalic Oral: Moist Mucosa Neck: Supple, No JVD, Trachea Midline Lungs: Normal air movement, No rhonchi, No wheeze, Diminished, mild crackles at the bases Cardiovascular: Regular rate, Regular Rhythm, Normal S1, Normal S2, No murmurs Abdomen: Soft, Non Tender, Non-Distended, No Hepato-splenomegaly, Obese Extremities: No edema, Capillary Refill Less than 3 Seconds Skin: No rashes, No breakdown Neurological: Neuro grossly intact, Sensory exam intact to light touch and pain Psych/Mental Status: Flat Affect Microbiology Past 72 Hours 11/24/18 11:40 Urine Catheter - Lane Urine Culture - Preliminary Culture exhibits no growth. 11/23/18 21:15 Blood Culture (Wb) - Right Forearm Blood Culture - Preliminary No growth in 48 hours. 11/23/18 21:10 Blood Culture (Wb) - Right Hand Blood Culture - Preliminary No growth in 48 hours. Laboratory Results 11/25/18 10:55: POC Glucose 146 H 11/25/18 16:40: POC Glucose 115 H 11/25/18 21:54: POC Glucose 140 H 11/26/18 05:35: WBC 12.0 H, RBC 3.91 L, Hgb 11.0 L, Hct 33.3 L, MCV 85.2, MCH 28.1, MCHC 33.0, RDW 14.1, RDW Differential 43.0, Plt Count 133 L, MPV 11.2, Immature Gran % (Auto) 0.300, Neut % (Auto) 88.2 H, Lymph % (Auto) 5.2 L, [place] % (Auto) 5.7, Eos % (Auto) 0.5, Baso % (Auto) 0.1, Absolute Neuts (auto) 10.6 H, Absolute Lymphs (auto) 0.62 L, Total Counted Not Reportable 11/26/18 05:35: Sodium 141, Potassium 3.6, Chloride 112 H, Carbon Dioxide 18.0 L, Anion Gap 11, BUN 43 H, Creatinine 3.43 H, Estim Creat Clear Calc 25.66, Est GFR (MDRD) Af Amer 23 L, Est GFR (MDRD) Non-Af 19 L, BUN/Creatinine Ratio 12.5, Glucose 110 H, Calcium 7.4 L 11/26/18 05:35: Total Creatine Kinase 6802 H 11/26/18 06:39: POC Glucose 116 H Current Medications Acetaminophen (Tylenol) 650 mg PO Q6H PRN PRN PRN Reason: Fever >101/Pain Last Admin: 11/25/18 03:10 Dose: 650 mg Artificial Tears (Tears Naturale, Artificial Tears) 1 drop EACH EYE TID [facility] Last Admin: 11/26/18 05:49 Dose: 1 drop Aspirin (Aspirin, Baby) 81 mg PO DAILY@0800 [facility] Last Admin: 11/26/18 08:03 Dose: 81 mg Bacitracin (Bacitracin Ointment) 1 applic TOPICAL BID [facility]; Protocol Last Admin: 11/26/18 08:02 Dose: 1 applic Benztropine Mesylate (Cogentin) 1 mg PO BID [facility] Last Admin: 11/26/18 08:03 Dose: 1 mg Budesonide (Pulmicort Aerosol) 0.5 mg INHALATION Q12H.RT [facility] Last Admin: 11/26/18 07:16 Dose: 0.5 mg Dextrose (D50w Syringe) 0 gm IV X1 PRN; Protocol PRN Reason: Hypoglycemia Duloxetine HCl (Cymbalta) 30 mg PO DAILY [facility] Last Admin: 11/26/18 08:04 Dose: 30 mg Enoxaparin Sodium (Lovenox) 30 mg SC DAILY@1000 [facility] Last Admin: 11/26/18 08:04 Dose: 30 mg Gabapentin (Neurontin) 300 mg PO DAILY PRN PRN PRN Reason: R FOOT Glucagon () 1 mg IM .X1 PRN PRN Reason: Hypoglycemia Sodium Chloride () 250 mls @ 15 mls/hr IV .[id number] PRN PRN Reason: SALINE FLUSH Sodium Chloride () 1,000 mls @ 150 mls/hr IV .Q6H40M [facility] Last Admin: 11/26/18 08:18 Dose: 150 mls/hr Insulin Glargine (Lantus ([facility])) 25 units SC DAILY [facility] Last Admin: 11/26/18 08:04 Dose: 25 units Insulin Human Lispro (Humalog Kwikpen ([facility])) 0 unit SQ ACHS [facility]; Protocol Last Admin: 11/26/18 07:38 Dose: Not Given Lamotrigine (Lamictal) 200 mg PO DAILY [facility] Last Admin: 11/26/18 08:02 Dose: 200 mg Lamotrigine (Lamictal) 400 mg PO QHS [facility] Last Admin: 11/25/18 21:55 Dose: 400 mg Levetiracetam (Keppra Tablet) 1,500 mg PO BID [facility] Last Admin: 11/26/18 08:03 Dose: 1,500 mg Levothyroxine Sodium (Synthroid) 175 mcg PO DAILY@0600 [facility] Last Admin: 11/26/18 05:49 Dose: 175 mcg Magnesium Hydroxide (Milk Of Magnesia) 30 ml PO DAILY PRN PRN PRN Reason: Constipation Pramipexole Dihydrochloride (Mirapex) 0.5 mg PO QHS [facility] Last Admin: 11/25/18 21:57 Dose: 0.5 mg Risperidone (Risperdal) 3 mg PO BREAKFAST [facility] Last Admin: 11/26/18 08:03 Dose: 3 mg Risperidone (Risperdal) 4 mg PO QHS [facility] Last Admin: 11/25/18 21:56 Dose: 4 mg Sodium Chloride () 5 - 15 ml IV UD PRN PRN Reason: SALINE FLUSH Last Admin: 11/25/18 05:17 Dose: 10 ml Throat Lozenges (Cepacol Sore Throat Lozenge) 1 lozenge MUCOUS MEM Q2H PRN PRN PRN Reason: SORE THROAT Medical Necessity - Tobacco Use Smoking Status: Never smoker Assessment/Plan All Active Problems MARQUIS (acute kidney injury) (Acute) Metatarsal fracture (Acute) 1. Rhabdomyolysis with acute kidney injury and an elevated troponin/hypotension(resolved)/lactic acidosis(resolved) -His creatinine now has climbed to 3.43 today but he is 8 L positive therefore will slow down his IV fluid hydration, especially with crackles -Lane is in place and he is making adequate urine now after a dose of Lasix in the ICU -CK on admission was greater than 24,000 now less than 7000 -Troponin is likely secondary to demand ischemia and muscle breakdown from his rhabdo -We will continue to monitor given continued increase in his creatinine 2. Baseline MRDD/schizophrenia/bipolar disorder -Stable -Continue with risperidone 3. Hypothyroidism -Stable, TSH 2.25 -Continue with Synthroid 4. seizure disorder -Stable at the moment though unsure whether his fall was caused by a seizure -Continue with Keppra and Lamictal 5. IDDM 2 -Stable on his home regimen of Tresiba, edition to Lantus -Blood glucose stable continue with Accu-Cheks DVT: Lovenox Code Visit Inpatient E&M: 13295 Subs Hosp L2
--- NOTE | 2018-11-26 11:21 | PCM.PN.CARD ---
Subjectve: Patient seen and evaluated. Objective: Vital Signs Temp Pulse Resp BP Pulse Ox 97.6 F L 74 18 132/55 H 97 11/26/18 09:00 11/26/18 09:00 11/26/18 09:00 11/26/18 09:00 11/26/18 09:00 Oxygen Flow Rate (L/min) 2 Oxygen Delivery Method Room Air Weight: 280 lb 3.32 oz Body Mass Index (BMI) 31.1 Finger Stick Blood Glucose 145 Intake and Output for Last 24 Hours 11/24/18 11/25/18 11/26/18 23:59 23:59 23:59 Intake Total 7025 / 7025 6254 / 6254 1465 / 1465 Output Total 1800 / 1800 1950 / 1950 325 / 325 Balance 5225 / 5225 4304 / 4304 1140 / 1140 General: Awake, Alert, Oriented x 3 HEENT: PERRL, EOMI, Sclera Non Icteric Neck: Supple, Good ROM, No Lymph Node Enlargement Lungs: Clear to auscultation Cardiovascular: Regular Rhythm, Normal S1, Normal S2, No Murmurs, No Rubs, No Gallops Vascular: No Carotid Bruits, Normal Femoral Pulses, Normal Radial Pulses, Normal Dorsalis Pedal Pulse, Normal Posterior Tibial Pulses Abdomen: Bowel Sounds Present, Soft, Non Tender, No HSM, No Organomegaly Extremities: No Cyanosis, No Clubbing, No edema Neurological: No Focal Motor or Sensory Deficit Psych/Mental Status: Appropriate 11/26/18 05:35: WBC 12.0 H, RBC 3.91 L, Hgb 11.0 L, Hct 33.3 L, MCV 85.2, MCH 28.1, MCHC 33.0, RDW 14.1, RDW Differential 43.0, Plt Count 133 L, MPV 11.2, Immature Gran % (Auto) 0.300, Neut % (Auto) 88.2 H, Lymph % (Auto) 5.2 L, [place] % (Auto) 5.7, Eos % (Auto) 0.5, Baso % (Auto) 0.1, Absolute Neuts (auto) 10.6 H, Total Counted Not Reportable 11/26/18 05:35: Sodium 141, Potassium 3.6, Chloride 112 H, Carbon Dioxide 18.0 L, Anion Gap 11, BUN 43 H, Creatinine 3.43 H, Est GFR (MDRD) Af Amer 23 L, Est GFR (MDRD) Non-Af 19 L, BUN/Creatinine Ratio 12.5, Glucose 110 H, Calcium 7.4 L Rhythm: EKG: ECHO: Stress Test: Cardiac Cath: PCI: CT Surgery: Holter monitor: EPS: PPM: CXR: Chest CT Scan: Medical Necessity - Tobacco Use Smoking Status: Never smoker Assessment/Plan 68 y/o admitted after being found down in his house 1. Rhabdomyolysis due to fall CPK was >24,000 was hypotensive on admission as well. Unfortunately this has resulted in a decline in his renal function. His blood pressure however appears to be better at this time. His creatinine is still rising though at a lower rate. He may need to be diuresed at some point. Echo to assess LV function--this demonstrated global reduction in ejection fraction estimated at 50% 2. Elevated troponins initial troponin is 0.821; could be due to demand ischemia as his BP was in 50s systolic on admission EKG showed no acute ST changes. Aspirin 81 mg daily. Further recommendations will depend on how he does and recovers from his rhabdomyolysis. His renal function also need to be monitored as it seems to be worsening for now. Thank you for allowing me to participate in the care of your patient. Please don't hesitate to call if any issues arise
--- NOTE | 2018-11-26 11:24 | PN.CARD_ITS ---
Subjectve: Patient seen and evaluated. Objective: Vital Signs Temp Pulse Resp BP Pulse Ox 97.6 F L 74 18 132/55 H 97 11/26/18 09:00 11/26/18 09:00 11/26/18 09:00 11/26/18 09:00 11/26/18 09:00 Oxygen Flow Rate (L/min) 2 Oxygen Delivery Method Room Air Weight: 280 lb 3.32 oz Body Mass Index (BMI) 31.1 Finger Stick Blood Glucose 145 Intake and Output for Last 24 Hours 11/24/18 11/25/18 11/26/18 23:59 23:59 23:59 Intake Total 7025 / 7025 6254 / 6254 1465 / 1465 Output Total 1800 / 1800 1950 / 1950 325 / 325 Balance 5225 / 5225 4304 / 4304 1140 / 1140 General: Awake, Alert, Oriented x 3 HEENT: PERRL, EOMI, Sclera Non Icteric Neck: Supple, Good ROM, No Lymph Node Enlargement Lungs: Clear to auscultation Cardiovascular: Regular Rhythm, Normal S1, Normal S2, No Murmurs, No Rubs, No Gallops Vascular: No Carotid Bruits, Normal Femoral Pulses, Normal Radial Pulses, Normal Dorsalis Pedal Pulse, Normal Posterior Tibial Pulses Abdomen: Bowel Sounds Present, Soft, Non Tender, No HSM, No Organomegaly Extremities: No Cyanosis, No Clubbing, No edema Neurological: No Focal Motor or Sensory Deficit Psych/Mental Status: Appropriate 11/26/18 05:35: WBC 12.0 H, RBC 3.91 L, Hgb 11.0 L, Hct 33.3 L, MCV 85.2, MCH 28.1, MCHC 33.0, RDW 14.1, RDW Differential 43.0, Plt Count 133 L, MPV 11.2, Immature Gran % (Auto) 0.300, Neut % (Auto) 88.2 H, Lymph % (Auto) 5.2 L, [place] % (Auto) 5.7, Eos % (Auto) 0.5, Baso % (Auto) 0.1, Absolute Neuts (auto) 10.6 H, Total Counted Not Reportable 11/26/18 05:35: Sodium 141, Potassium 3.6, Chloride 112 H, Carbon Dioxide 18.0 L , Anion Gap 11, BUN 43 H, Creatinine 3.43 H, Est GFR (MDRD) Af Amer 23 L, Est GFR (MDRD) Non-Af 19 L, BUN/Creatinine Ratio 12.5, Glucose 110 H, Calcium 7.4 L Rhythm: EKG: ECHO: Stress Test: Cardiac Cath: PCI: CT Surgery: Holter monitor: EPS: PPM: CXR: Chest CT Scan: Medical Necessity - Tobacco Use Smoking Status: Never smoker Assessment/Plan 68 y/o admitted after being found down in his house 1. Rhabdomyolysis due to fall * CPK was >24,000 * was hypotensive on admission as well. Unfortunately this has resulted in a decline in his renal function. His blood pressure however appears to be better at this time. * His creatinine is still rising though at a lower rate. He may need to be diuresed at some point. * * Echo to assess LV function--this demonstrated global reduction in ejection fraction estimated at 50% 2. Elevated troponins * initial troponin is 0.821; could be due to demand ischemia as his BP was in 50s systolic on admission * EKG showed no acute ST changes. * * * Aspirin 81 mg daily. * Further recommendations will depend on how he does and recovers from his rha bdomyolysis. His renal function also need to be monitored as it seems to be worsening for now. * * Thank you for allowing me to participate in the care of your patient. Please don't hesitate to call if any issues arise
[2018-11-26 11:30] LABS: Bedside Glucose 127 mg/dL (70-110)
--- NOTE | 2018-11-26 12:22 | CASEMGMT ---
Received call from [facility] and they can accept patient. SW will notify patient and Board of DD. SW will also put green sheet on his chart in the event he is ready over the weekend. Zofia LUCERO
--- NOTE | 2018-11-26 14:27 | CASEMGMT ---
DONAVON called Nelson at [facility] and let him know patient will go to [facility] likely this weekend. He thanked DONAVON for the update. DONAVON also notified patient and left a message for his friend/caregiver, Simón Baig. Green sheet on chart. DONAVON also completed convalescent on [facility]. Plan: [facility] under skilled level of care on a convalescent stay. Staff to set up transport. Zofia HOPE MSW
--- NOTE | 2018-11-26 14:30 | PN.RENAL_ITS ---
Patient Problems: Active and Suspected Problems MARQUIS (acute kidney injury) (Acute) Subjective: events noted - Physical Exam General: Alert, Oriented x3, Cooperative HEENT: Atraumatic, PERRLA, EOMI, Normocephalic Neck: Supple, No JVD, Negative Carotid Bruits Lungs: Rales Cardiovascular: Regular rate, No murmurs Abdomen: Bowel Sounds Present, Soft, Non Tender Extremities: No edema, Capillary Refill Less than 3 Seconds Skin: No rashes, No breakdown Musculoskeletal: No Tenderness to Palpation of Joints or Extremities Neurological: Cranial nerves II-XII grossly intact Psych/Mental Status: Normal Affect, Appropriate Vital Signs Temp Pulse Resp BP Pulse Ox 97.6 F L 70 18 132/55 H 97 11/26/18 09:00 11/26/18 11:39 11/26/18 09:00 11/26/18 09:00 11/26/18 09:00 Oxygen Flow Rate (L/min) 2 Oxygen Delivery Method Room Air Weight: 127.1 kg Body Mass Index (BMI) 31.1 Finger Stick Blood Glucose 145 Intake and Output for Last 24 Hours 11/24/18 11/25/18 11/26/18 23:59 23:59 23:59 Intake Total 7025 / 7025 6254 / 6254 2733 / 2733 Output Total 1800 / 1800 1950 / 1950 575 / 575 Balance 5225 / 5225 4304 / 4304 2158 / 2158 Microbiology Past 72 Hours 11/24/18 11:40 Urine Culture - Preliminary Urine Catheter - Lane Culture exhibits no growth. 11/23/18 21:15 Blood Culture - Preliminary Blood Culture (Wb) - Right Forearm No growth in 48 hours. 11/23/18 21:10 Blood Culture - Preliminary Blood Culture (Wb) - Right Hand No growth in 48 hours. Laboratory Tests Past 24 Hrs 11/26/18 11/26/18 11/26/18 05:35 05:35 05:35 WBC 12.0 H RBC 3.91 L Hgb 11.0 L Hct 33.3 L MCV 85.2 MCH 28.1 MCHC 33.0 RDW 14.1 RDW Differential 43.0 Plt Count 133 L MPV 11.2 Immature Gran % (Auto) 0.300 Neut % (Auto) 88.2 H Lymph % (Auto) 5.2 L [place] % (Auto) 5.7 Eos % (Auto) 0.5 Baso % (Auto) 0.1 Absolute Neuts (auto) 10.6 H Absolute Lymphs (auto) 0.62 L Total Counted Not Reportable Sodium 141 Potassium 3.6 Chloride 112 H Carbon Dioxide 18.0 L Anion Gap 11 BUN 43 H Creatinine 3.43 H Estim Creat Clear Calc 25.66 Est GFR (MDRD) Af Amer 23 L Est GFR (MDRD) Non-Af 19 L BUN/Creatinine Ratio 12.5 Glucose 110 H Calcium 7.4 L Total Creatine Kinase 6802 H POC Glucose 11/26/18 11/26/18 11/25/18 11:25 06:39 21:54 POC Glucose 127 H 116 H 140 H 11/25/18 16:40 POC Glucose 115 H Medical Necessity - Tobacco Use Smoking Status: Never smoker Assessment/Plan All Active Problems MARQUIS (acute kidney injury) (Acute) Metatarsal fracture (Acute) MARQUIS Rhabdomyolysis CPK levels at admission are at 24K. likely related to recent fall. levels trending down, today at 6K Creatinine is still going up but the rate of increase has slowed down. hopefully he will turn around in next 1-2 days Continue fluids till CPK less than 5 K some volume issues overnight, fluid rate cut down today ok to use lasix as needed if any breathing issues
[2018-11-26 16:56] LABS: Bedside Glucose 129 mg/dL (70-110)
[2018-11-26] MEDS: Insulin Lispro 100 UNIT/ML INSULN.PEN SQ (21:57)
[2018-11-26] MEDS: lamoTRIgine 100 MG Tablet 400 MG PO (21:58)
[2018-11-26] MEDS: Pramipexole Di-HCl 0.5 MG Tablet PO (21:59)
[2018-11-26] MEDS: RisperiDONE 2 MG Tablet 4 MG PO (22:00)
[2018-11-26 22:25] LABS: Bedside Glucose 183 mg/dL (70-110)
[2018-11-27] VITALS (12 sets, daily range): BP systolic 129–153; BP diastolic 65–71; PULSE 77–89; RESP 16–20; TEMP 36.7–37; O2SAT 94–97
[2018-11-27] MEDS: 0.9% Normal Saline 1,000 ML 150 ML IV ×2 (04:11→11:07)
[2018-11-27] MEDS: Levothyroxine 175 MCG Tablet PO (05:35)
[2018-11-27 06:50] LABS: Bedside Glucose 116 mg/dL (70-110)
[2018-11-27] MEDS: Budesonide Respules 0.5 MG/2 ML AMPUL.NEB. INHALATION ×2 (08:01→19:08)
[2018-11-27 09:10] LABS: Anion Gap 9 (5-15); BUN 43 mg/dL (7-18); BUN/Creat Ratio 12.6 RATIO (10-20); Calcium,Total 7.4 mg/dL (8.5-10.1); Chloride 112 mmol/L (98-107); EST Glomerular Filtration Rate 19 mL/min (>60); Est Glom Filt Rate - Afr Amer 23 mL/min (>60); Estimated Creatinine Clearance 25.88 ml/min; Glucose 117 mg/dL (74-106); Potassium 3.6 mmol/L (3.5-5.1); Sodium Level 138 mmol/L (136-145)
[2018-11-27] MEDS: BACITRACIN 15 GM Tube 1 APPLIC TOPICAL ×2 (09:11→21:05)
[2018-11-27] MEDS: Enoxaparin 30 MG/0.3 ML Syringe SC (09:11)
[2018-11-27] MEDS: BENZOCAINE/MENTHOL 1 LOZENGE MUCOUS MEM ×2 (09:12→21:11)
[2018-11-27] MEDS: Aspirin 81 MG TAB.CHEW PO (09:12)
[2018-11-27] MEDS: Benztropine 2 MG Tablet 1 MG PO ×2 (09:12→21:04)
[2018-11-27] MEDS: lamoTRIgine 100 MG Tablet 200 MG PO (09:12)
[2018-11-27] MEDS: levETIRAcetam 750 MG Tablet 1500 MG PO ×2 (09:12→21:02)
[2018-11-27] MEDS: DULoxetine Hcl 30 MG Capsule PO (09:12)
[2018-11-27] MEDS: RisperiDONE 1 MG Tablet 3 MG PO (09:12)
[2018-11-27 11:25] LABS: Bedside Glucose 146 mg/dL (70-110)
--- NOTE | 2018-11-27 11:45 | PN.CARD_ITS ---
Subjectve: Denies any complaints Objective: Vital Signs Temp Pulse Resp BP Pulse Ox 98.0 F 89 18 129/71 H 95 11/27/18 09:10 11/27/18 11:01 11/27/18 09:10 11/27/18 09:10 11/27/18 09:10 Oxygen Flow Rate (L/min) 2 Oxygen Delivery Method Room Air Weight: 130.4 kg Body Mass Index (BMI) 31.1 Finger Stick Blood Glucose 145 Intake and Output for Last 24 Hours 11/25/18 11/26/18 11/27/18 23:59 23:59 23:59 Intake Total 6254 / 6254 4851 / 4851 1966 / 1966 Output Total 1949 / 1949 1375 / 1375 800 / 800 Balance 4304 / 4304 3476 / 3476 1167 / 1167 General: Lethargic Lungs: Diminished Chace Bases Cardiovascular: Normal S1, Normal S2 Abdomen: Soft, Non Tender Extremities: Bilateral Edema +2 11/27/18 07:24: Sodium 138, Potassium 3.6, Chloride 112 H, Carbon Dioxide 17.0 L , Anion Gap 9, BUN 43 H, Creatinine 3.40 H, Est GFR (MDRD) Af Amer 23 L, Est GFR (MDRD) Non-Af 19 L, BUN/Creatinine Ratio 12.6, Glucose 117 H, Calcium 7.4 L Rhythm: EKG: ECHO: Stress Test: Cardiac Cath: PCI: CT Surgery: Holter monitor: EPS: PPM: CXR: Chest CT Scan: Medical Necessity - Tobacco Use Smoking Status: Never smoker Assessment/Plan 1. Rhabdomyolysis 2. Elevated troponin likely secondary to #1 above. However cannot rule out underlying CAD. Will need evaluation probably with a pharmacological stress nuclear study at a later stage when other issues resolved. Next 3. History of seizure disorder 4. Acute renal failure secondary to #1 above.
--- NOTE | 2018-11-27 15:53 | PN_ITS ---
Patient Problems: Active and Suspected Problems MARQUIS (acute kidney injury) (Acute) Subjective: Seems to be doing better, says that he has a sore throat today. Review of his labs show that his creatinine has improved a little bit. Vitals/I&O's: Vital Signs Temp Pulse Resp BP Pulse Ox 98.6 F 81 18 136/68 H 96 11/27/18 15:10 11/27/18 15:10 11/27/18 15:10 11/27/18 15:10 11/27/18 15:10 Oxygen Flow Rate (L/min) 2 Oxygen Delivery Method Room Air Weight: 287 lb 7.724 oz Body Mass Index (BMI) 31.1 Finger Stick Blood Glucose 145 Intake and Output for Last 24 Hours 11/25/18 11/26/18 11/27/18 23:59 23:59 23:59 Intake Total 6254 / 6254 4851 / 4851 1966 / 1966 Output Total 1950 / 1950 1375 / 1375 800 / 800 Balance 4304 / 4304 3476 / 3476 1167 / 1167 General: Alert, Oriented x3, Cooperative, No apparent distress HEENT: Atraumatic, EOMI, Normocephalic Oral: Moist Mucosa Neck: Supple, No JVD, Trachea Midline Lungs: Normal air movement, No rhonchi, No wheeze, Diminished, Cardiovascular: Regular rate, Regular Rhythm, Normal S1, Normal S2, No murmurs Abdomen: Soft, Non Tender, Non-Distended, No Hepato-splenomegaly, Obese Extremities: No edema, Capillary Refill Less than 3 Seconds Skin: No rashes, No breakdown Neurological: Neuro grossly intact, Sensory exam intact to light touch and pain Psych/Mental Status: Flat Affect Microbiology Past 72 Hours 11/24/18 11:40 Urine Catheter - Lane Urine Culture - Final Culture exhibits no growth. 11/23/18 21:15 Blood Culture (Wb) - Right Forearm Blood Culture - Preliminary No growth in 48 hours. 11/23/18 21:10 Blood Culture (Wb) - Right Hand Blood Culture - Preliminary No growth in 48 hours. Laboratory Results 11/26/18 16:50: POC Glucose 129 H 11/26/18 21:47: POC Glucose 183 H 11/27/18 06:41: POC Glucose 116 H 11/27/18 07:24: Sodium 138, Potassium 3.6, Chloride 112 H, Carbon Dioxide 17.0 L , Anion Gap 9, BUN 43 H, Creatinine 3.40 H, Estim Creat Clear Calc 25.88, Est GFR (MDRD) Af Amer 23 L, Est GFR (MDRD) Non-Af 19 L, BUN/Creatinine Ratio 12.6, Glucose 117 H, Calcium 7.4 L 11/27/18 11:05: POC Glucose 146 H Current Medications Acetaminophen (Tylenol) 650 mg PO Q6H PRN PRN PRN Reason: Fever >101/Pain Last Admin: 11/25/18 03:10 Dose: 650 mg Artificial Tears (Tears Naturale, Artificial Tears) 1 drop EACH EYE TID [facility] Last Admin: 11/27/18 13:32 Dose: 1 drop Aspirin (Aspirin, Baby) 81 mg PO DAILY@0800 [facility] Last Admin: 11/27/18 09:12 Dose: 81 mg Bacitracin (Bacitracin Ointment) 1 applic TOPICAL BID [facility]; Protocol Last Admin: 11/27/18 09:11 Dose: 1 applic Benztropine Mesylate (Cogentin) 1 mg PO BID [facility] Last Admin: 11/27/18 09:12 Dose: 1 mg Budesonide (Pulmicort Aerosol) 0.5 mg INHALATION Q12H.RT [facility] Last Admin: 11/27/18 08:01 Dose: 0.5 mg Dextrose (D50w Syringe) 0 gm IV X1 PRN; Protocol PRN Reason: Hypoglycemia Duloxetine HCl (Cymbalta) 30 mg PO DAILY [facility] Last Admin: 11/27/18 09:12 Dose: 30 mg Enoxaparin Sodium (Lovenox) 30 mg SC DAILY@1000 [facility] Last Admin: 11/27/18 09:11 Dose: 30 mg Gabapentin (Neurontin) 300 mg PO DAILY PRN PRN PRN Reason: R FOOT Glucagon () 1 mg IM .X1 PRN PRN Reason: Hypoglycemia Sodium Chloride () 250 mls @ 15 mls/hr IV .[id number] PRN PRN Reason: SALINE FLUSH Sodium Chloride () 1,000 mls @ 150 mls/hr IV .[id number] [facility] Last Admin: 11/27/18 11:07 Dose: 150 mls/hr Insulin Glargine (Lantus (Bkc)) 25 units SC DAILY [facility] Last Admin: 11/27/18 09:11 Dose: 25 units Insulin Human Lispro (Humalog Kwikpen (Bkc)) 0 unit SQ ACHS [facility]; Protocol Last Admin: 11/27/18 11:07 Dose: Not Given Lamotrigine (Lamictal) 200 mg PO DAILY [facility] Last Admin: 11/27/18 09:12 Dose: 200 mg Lamotrigine (Lamictal) 400 mg PO QHS [facility] Last Admin: 11/26/18 21:58 Dose: 400 mg Levetiracetam (Keppra Tablet) 1,500 mg PO BID [facility] Last Admin: 11/27/18 09:12 Dose: 1,500 mg Levothyroxine Sodium (Synthroid) 175 mcg PO DAILY@0600 [facility] Last Admin: 11/27/18 05:35 Dose: 175 mcg Magnesium Hydroxide (Milk Of Magnesia) 30 ml PO DAILY PRN PRN PRN Reason: Constipation Pramipexole Dihydrochloride (Mirapex) 0.5 mg PO QHS [facility] Last Admin: 11/26/18 21:59 Dose: 0.5 mg Risperidone (Risperdal) 3 mg PO BREAKFAST [facility] Last Admin: 11/27/18 09:12 Dose: 3 mg Risperidone (Risperdal) 4 mg PO QHS [facility] Last Admin: 11/26/18 22:00 Dose: 4 mg Sodium Chloride () 5 - 15 ml IV UD PRN PRN Reason: SALINE FLUSH Last Admin: 11/25/18 05:17 Dose: 10 ml Throat Lozenges (Cepacol Sore Throat Lozenge) 1 lozenge MUCOUS MEM Q2H PRN PRN PRN Reason: SORE THROAT Last Admin: 11/27/18 09:12 Dose: 1 lozenge Medical Necessity - Tobacco Use Smoking Status: Never smoker Assessment/Plan All Active Problems MARQUIS (acute kidney injury) (Acute) Metatarsal fracture (Acute) 1. Rhabdomyolysis with acute kidney injury and an elevated troponin/hypotension(resolved)/lactic acidosis(resolved) -Lane is in place and he is making adequate urine now after a dose of Lasix in the ICU -CK on admission was greater than 24,000 now less than 7000 -Troponin is likely secondary to demand ischemia and muscle breakdown from his rhabdo -Plan for discharge tomorrow morning if his creatinine either remains the same or improves even more. 2. Baseline MRDD/schizophrenia/bipolar disorder -Stable -Continue with risperidone 3. Hypothyroidism -Stable, TSH 2.25 -Continue with Synthroid 4. seizure disorder -Stable at the moment though unsure whether his fall was caused by a seizure -Continue with Keppra and Lamictal 5. IDDM 2 -Stable on his home regimen of Tresiba, transition to Lantus -Blood glucose stable continue with Accu-Cheks DVT: Lovenox
[2018-11-27] MEDS: Insulin Lispro 100 UNIT/ML INSULN.PEN SQ ×2 (16:33→21:05)
[2018-11-27 16:41] LABS: Bedside Glucose 159 mg/dL (70-110)
[2018-11-27] MEDS: 0.9% Normal Saline 1,000 ML 100 ML IV (18:56)
--- NOTE | 2018-11-27 19:39 | PCM.PN.REN ---
Patient Problems: Active and Suspected Problems MARQUIS (acute kidney injury) (Acute) Subjective: Following for MARQUIS. Pt reports poor appetite. No CP or SOB. No nausea or diarrhea. - Physical Exam General: Alert, Oriented x3 Oral: Moist Mucosa Neck: Supple Lungs: Clear to auscultation - anteriorly Cardiovascular: Normal S1, Normal S2, No murmurs Abdomen: Bowel Sounds Present, Soft, Non Tender Extremities: Edema - 2+ LE Vital Signs Temp Pulse Resp BP Pulse Ox 98.6 F 87 18 136/68 H 96 11/27/18 15:10 11/27/18 19:23 11/27/18 15:10 11/27/18 15:10 11/27/18 15:10 Oxygen Flow Rate (L/min) 2 Oxygen Delivery Method Room Air Weight: 130.4 kg Body Mass Index (BMI) 31.1 Finger Stick Blood Glucose 145 Intake and Output for Last 24 Hours 11/25/18 11/26/18 11/27/18 23:59 23:59 23:59 Intake Total 6254 / 6254 4851 / 4851 3747 / 3747 Output Total 1950 / 1950 1375 / 1375 1200 / 1200 Balance 4304 / 4304 3476 / 3476 2547 / 2547 Microbiology Past 72 Hours 11/24/18 11:40 Urine Culture - Final Urine Catheter - Lane Culture exhibits no growth. 11/23/18 21:15 Blood Culture - Preliminary Blood Culture (Wb) - Right Forearm No growth in 48 hours. 11/23/18 21:10 Blood Culture - Preliminary Blood Culture (Wb) - Right Hand No growth in 48 hours. Laboratory Tests Past 24 Hrs 11/27/18 07:24 Sodium 138 Potassium 3.6 Chloride 112 H Carbon Dioxide 17.0 L Anion Gap 9 BUN 43 H Creatinine 3.40 H Estim Creat Clear Calc 25.88 Est GFR (MDRD) Af Amer 23 L Est GFR (MDRD) Non-Af 19 L BUN/Creatinine Ratio 12.6 Glucose 117 H Calcium 7.4 L POC Glucose 11/27/18 11/27/18 11/27/18 16:31 11:05 06:41 POC Glucose 159 H 146 H 116 H 11/26/18 21:47 POC Glucose 183 H Medical Necessity - Tobacco Use Smoking Status: Never smoker Assessment/Plan All Active Problems MARQUIS (acute kidney injury) (Acute) Metatarsal fracture (Acute) 1. Acute kidney injury. Baseline SCr is 0.9 mg/dL. MARQUIS is 2/2 nephrotoxic ATN due to rhabdomyolysis. The pt is non-oliguric, and SCr appears to have plateaued. No current need for dialysis. Continue IVF (see below). 2. Metabolic acidosis. HCO3 is down trending. Likely due to the use of normal saline in the setting of MARQUIS. Will change IVF to LR. Monitor HCO3. 3. Rhabdomyolysis. Recheck CPK in am. Can stop IVF if CPK is <5000 or if oral intake is adequate.
[2018-11-27] MEDS: Pramipexole Di-HCl 0.5 MG Tablet PO (21:01)
[2018-11-27] MEDS: Lactated Ringers 1,000 ML 100 ML IV (21:01)
[2018-11-27] MEDS: RisperiDONE 2 MG Tablet 4 MG PO (21:03)
[2018-11-27] MEDS: lamoTRIgine 100 MG Tablet 400 MG PO (21:03)
[2018-11-27 22:20] LABS: Bedside Glucose 164 mg/dL (70-110)
[2018-11-28] VITALS (12 sets, daily range): BP systolic 140–150; BP diastolic 56–69; PULSE 76–97; RESP 16–18; TEMP 37–37.7; O2SAT 93–96
[2018-11-28] MEDS: Levothyroxine 175 MCG Tablet PO (05:44)
[2018-11-28 07:06] LABS: Bedside Glucose 117 mg/dL (70-110)
[2018-11-28] MEDS: Budesonide Respules 0.5 MG/2 ML AMPUL.NEB. INHALATION ×2 (07:54→20:15)
[2018-11-28] MEDS: RisperiDONE 1 MG Tablet 3 MG PO (08:18)
[2018-11-28] MEDS: Aspirin 81 MG TAB.CHEW PO (08:18)
[2018-11-28] MEDS: Lactated Ringers 1,000 ML 100 ML IV (08:21)
[2018-11-28 09:27] LABS: Anion Gap 10 (5-15); BUN 46 mg/dL (7-18); BUN/Creat Ratio 13.1 RATIO (10-20); CPK Total, Creatine Kinase 1774 U/L (39-308); Calcium,Total 7.8 mg/dL (8.5-10.1); Chloride 115 mmol/L (98-107); Creatinine, Serum 3.51 mg/dL (0.70-1.30); EST Glomerular Filtration Rate 19 mL/min (>60); Est Glom Filt Rate - Afr Amer 23 mL/min (>60); Estimated Creatinine Clearance 25.07 ml/min; Glucose 118 mg/dL (74-106); Potassium 3.9 mmol/L (3.5-5.1); Sodium Level 142 mmol/L (136-145)
[2018-11-28] MEDS: levETIRAcetam 750 MG Tablet 1500 MG PO ×2 (11:21→22:34)
[2018-11-28] MEDS: BACITRACIN 15 GM Tube 1 APPLIC TOPICAL ×2 (11:21→22:33)
[2018-11-28] MEDS: lamoTRIgine 100 MG Tablet 200 MG PO (11:22)
[2018-11-28] MEDS: DULoxetine Hcl 30 MG Capsule PO (11:22)
[2018-11-28] MEDS: Benztropine 2 MG Tablet 1 MG PO ×2 (11:23→22:34)
[2018-11-28] MEDS: Enoxaparin 30 MG/0.3 ML Syringe SC (11:24)
[2018-11-28 11:25] LABS: Bedside Glucose 125 mg/dL (70-110)
[2018-11-28] MEDS: Insulin Lispro 100 UNIT/ML INSULN.PEN SQ (16:24)
[2018-11-28 16:36] LABS: Bedside Glucose 160 mg/dL (70-110)
--- NOTE | 2018-11-28 17:05 | PCM.PN.HOSP ---
Patient Problems: Active and Suspected Problems MARQUIS (acute kidney injury) (Acute) Subjective: Doing well, continues to have a sore throat though it is a little bit better with the lozenges. No chest pain or shortness of breath Vitals/I&O's: Vital Signs Temp Pulse Resp BP Pulse Ox 99.2 F H 77 18 143/63 H 93 11/28/18 16:27 11/28/18 16:27 11/28/18 16:27 11/28/18 16:27 11/28/18 16:27 Oxygen Flow Rate (L/min) 2 Oxygen Delivery Method Room Air Weight: 288 lb 2.307 oz Body Mass Index (BMI) 31.1 Finger Stick Blood Glucose 145 Intake and Output for Last 24 Hours 11/26/18 11/27/18 11/29/18 23:59 23:59 00:59 Intake Total 4851 / 4851 3747 / 3747 2733 / 2733 Output Total 1375 / 1375 1200 / 1200 1400 / 1400 Balance 3476 / 3476 2547 / 2547 1333 / 1333 General: Alert, Oriented x3, Cooperative, No apparent distress HEENT: Atraumatic, EOMI, Normocephalic Oral: Moist Mucosa Neck: Supple, No JVD, Trachea Midline Lungs: Normal air movement, No rhonchi, No wheeze, Diminished, Cardiovascular: Regular rate, Regular Rhythm, Normal S1, Normal S2, No murmurs Abdomen: Soft, Non Tender, Non-Distended, No Hepato-splenomegaly, Obese Extremities: 2+ edema in his upper extremities and lower extremities, Capillary Refill Less than 3 Seconds Skin: No new rashes, chronic facial rash and scattered erythema and excoriations Neurological: Neuro grossly intact, Sensory exam intact to light touch and pain Psych/Mental Status: Flat Affect Microbiology Past 72 Hours 11/24/18 11:40 Urine Catheter - Lane Urine Culture - Final Culture exhibits no growth. 11/23/18 21:15 Blood Culture (Wb) - Right Forearm Blood Culture - Preliminary No growth in 48 hours. 11/23/18 21:10 Blood Culture (Wb) - Right Hand Blood Culture - Preliminary No growth in 48 hours. Laboratory Results 11/27/18 16:31: POC Glucose 159 H 11/27/18 20:59: POC Glucose 164 H 11/28/18 06:52: POC Glucose 117 H 11/28/18 08:05: Sodium 142, Potassium 3.9, Chloride 115 H, Carbon Dioxide 17.0 L, Anion Gap 10, BUN 46 H, Creatinine 3.51 H, Estim Creat Clear Calc 25.07, Est GFR (MDRD) Af Amer 23 L, Est GFR (MDRD) Non-Af 19 L, BUN/Creatinine Ratio 13.1, Glucose 118 H, Calcium 7.8 L, Total Creatine Kinase 1774 H 11/28/18 11:21: POC Glucose 125 H 11/28/18 16:22: POC Glucose 160 H Current Medications Acetaminophen (Tylenol) 650 mg PO Q6H PRN PRN PRN Reason: Fever >101/Pain Last Admin: 11/25/18 03:10 Dose: 650 mg Artificial Tears (Tears Naturale, Artificial Tears) 1 drop EACH EYE TID [facility] Last Admin: 11/28/18 14:21 Dose: 1 drop Aspirin (Aspirin, Baby) 81 mg PO DAILY@0800 [facility] Last Admin: 11/28/18 08:18 Dose: 81 mg Bacitracin (Bacitracin Ointment) 1 applic TOPICAL BID [facility]; Protocol Last Admin: 11/28/18 11:21 Dose: 1 applic Benztropine Mesylate (Cogentin) 1 mg PO BID [facility] Last Admin: 11/28/18 11:23 Dose: 1 mg Budesonide (Pulmicort Aerosol) 0.5 mg INHALATION Q12H.RT [facility] Last Admin: 11/28/18 07:54 Dose: 0.5 mg Dextrose (D50w Syringe) 0 gm IV X1 PRN; Protocol PRN Reason: Hypoglycemia Duloxetine HCl (Cymbalta) 30 mg PO DAILY [facility] Last Admin: 11/28/18 11:22 Dose: 30 mg Enoxaparin Sodium (Lovenox) 30 mg SC DAILY@1000 [facility] Last Admin: 11/28/18 11:24 Dose: 30 mg Gabapentin (Neurontin) 300 mg PO DAILY PRN PRN PRN Reason: R FOOT Glucagon () 1 mg IM .X1 PRN PRN Reason: Hypoglycemia Sodium Chloride () 250 mls @ 15 mls/hr IV .[id number] PRN PRN Reason: SALINE FLUSH Lactated Ringer's () 1,000 mls @ 100 mls/hr IV .Q10H [facility] Last Admin: 11/28/18 08:21 Dose: 100 mls/hr Insulin Glargine (Lantus (Bkc)) 25 units SC DAILY [facility] Last Admin: 11/28/18 11:23 Dose: 25 units Insulin Human Lispro (Humalog Kwikpen (Bk)) 0 unit SQ ACHS [facility]; Protocol Last Admin: 11/28/18 16:24 Dose: 2 u Lamotrigine (Lamictal) 200 mg PO DAILY [facility] Last Admin: 11/28/18 11:22 Dose: 200 mg Lamotrigine (Lamictal) 400 mg PO QHS [facility] Last Admin: 11/27/18 21:03 Dose: 400 mg Levetiracetam (Keppra Tablet) 1,500 mg PO BID [facility] Last Admin: 11/28/18 11:21 Dose: 1,500 mg Levothyroxine Sodium (Synthroid) 175 mcg PO DAILY@0600 [facility] Last Admin: 11/28/18 05:44 Dose: 175 mcg Magnesium Hydroxide (Milk Of Magnesia) 30 ml PO DAILY PRN PRN PRN Reason: Constipation Pramipexole Dihydrochloride (Mirapex) 0.5 mg PO QHS [facility] Last Admin: 11/27/18 21:01 Dose: 0.5 mg Risperidone (Risperdal) 3 mg PO BREAKFAST [facility] Last Admin: 11/28/18 08:18 Dose: 3 mg Risperidone (Risperdal) 4 mg PO QHS [facility] Last Admin: 11/27/18 21:03 Dose: 4 mg Sodium Chloride () 5 - 15 ml IV UD PRN PRN Reason: SALINE FLUSH Last Admin: 11/25/18 05:17 Dose: 10 ml Throat Lozenges (Cepacol Sore Throat Lozenge) 1 lozenge MUCOUS MEM Q2H PRN PRN PRN Reason: SORE THROAT Last Admin: 11/27/18 21:11 Dose: 1 lozenge Medical Necessity - Tobacco Use Smoking Status: Never smoker Assessment/Plan All Active Problems MARQUIS (acute kidney injury) (Acute) Metatarsal fracture (Acute) 1. Rhabdomyolysis with acute kidney injury and an elevated troponin/hypotension(resolved)/lactic acidosis(resolved) -Lane is in place and he is making adequate urine now after a dose of Lasix in the ICU -CK on admission was greater than 24,000 now less than 7000 -Troponin is likely secondary to demand ischemia and muscle breakdown from his rhabdo -Plan for discharge tomorrow morning if his creatinine either remains the same or improves even more. -He is extremely positive I&O's, and nephrology changed him from normal saline to LR because of his bicarb decreasing, however his creatinine has risen now to 3.51 from 3.40 so unsure if we should be giving Lasix or continued IV fluids, will await evaluation by nephrology 2. Baseline MRDD/schizophrenia/bipolar disorder -Stable -Continue with risperidone 3. Hypothyroidism -Stable, TSH 2.25 -Continue with Synthroid 4. seizure disorder -Stable at the moment though unsure whether his fall was caused by a seizure -Continue with Keppra and Lamictal 5. IDDM 2 -Stable on his home regimen of Tresiba, transition to Lantus -Blood glucose stable continue with Accu-Cheks DVT: Lovenox Code Visit Inpatient E&M: 65752 Subs Hosp L2
--- NOTE | 2018-11-28 17:10 | PN_ITS ---
Patient Problems: Active and Suspected Problems MARQUIS (acute kidney injury) (Acute) Subjective: Doing well, continues to have a sore throat though it is a little bit better with the lozenges. No chest pain or shortness of breath Vitals/I&O's: Vital Signs Temp Pulse Resp BP Pulse Ox 99.2 F H 77 18 143/63 H 93 11/28/18 16:27 11/28/18 16:27 11/28/18 16:27 11/28/18 16:27 11/28/18 16:27 Oxygen Flow Rate (L/min) 2 Oxygen Delivery Method Room Air Weight: 288 lb 2.307 oz Body Mass Index (BMI) 31.1 Finger Stick Blood Glucose 145 Intake and Output for Last 24 Hours 11/26/18 11/27/18 11/29/18 23:59 23:59 00:59 Intake Total 4851 / 4851 3747 / 3747 2733 / 2733 Output Total 1375 / 1375 1200 / 1200 1400 / 1400 Balance 3476 / 3476 2547 / 2547 1333 / 1333 General: Alert, Oriented x3, Cooperative, No apparent distress HEENT: Atraumatic, EOMI, Normocephalic Oral: Moist Mucosa Neck: Supple, No JVD, Trachea Midline Lungs: Normal air movement, No rhonchi, No wheeze, Diminished, Cardiovascular: Regular rate, Regular Rhythm, Normal S1, Normal S2, No murmurs Abdomen: Soft, Non Tender, Non-Distended, No Hepato-splenomegaly, Obese Extremities: 2+ edema in his upper extremities and lower extremities, Capillary Refill Less than 3 Seconds Skin: No new rashes, chronic facial rash and scattered erythema and excoriations Neurological: Neuro grossly intact, Sensory exam intact to light touch and pain Psych/Mental Status: Flat Affect Microbiology Past 72 Hours 11/24/18 11:40 Urine Catheter - Lane Urine Culture - Final Culture exhibits no growth. 11/23/18 21:15 Blood Culture (Wb) - Right Forearm Blood Culture - Preliminary No growth in 48 hours. 11/23/18 21:10 Blood Culture (Wb) - Right Hand Blood Culture - Preliminary No growth in 48 hours. Laboratory Results 11/27/18 16:31: POC Glucose 159 H 11/27/18 20:59: POC Glucose 164 H 11/28/18 06:52: POC Glucose 117 H 11/28/18 08:05: Sodium 142, Potassium 3.9, Chloride 115 H, Carbon Dioxide 17.0 L , Anion Gap 10, BUN 46 H, Creatinine 3.51 H, Estim Creat Clear Calc 25.07, Est GFR (MDRD) Af Amer 23 L, Est GFR (MDRD) Non-Af 19 L, BUN/Creatinine Ratio 13.1, Glucose 118 H, Calcium 7.8 L, Total Creatine Kinase 1774 H 11/28/18 11:21: POC Glucose 125 H 11/28/18 16:22: POC Glucose 160 H Current Medications Acetaminophen (Tylenol) 650 mg PO Q6H PRN PRN PRN Reason: Fever >101/Pain Last Admin: 11/25/18 03:10 Dose: 650 mg Artificial Tears (Tears Naturale, Artificial Tears) 1 drop EACH EYE TID [facility] Last Admin: 11/28/18 14:21 Dose: 1 drop Aspirin (Aspirin, Baby) 81 mg PO DAILY@0800 [facility] Last Admin: 11/28/18 08:18 Dose: 81 mg Bacitracin (Bacitracin Ointment) 1 applic TOPICAL BID [facility]; Protocol Last Admin: 11/28/18 11:21 Dose: 1 applic Benztropine Mesylate (Cogentin) 1 mg PO BID [facility] Last Admin: 11/28/18 11:23 Dose: 1 mg Budesonide (Pulmicort Aerosol) 0.5 mg INHALATION Q12H.RT [facility] Last Admin: 11/28/18 07:54 Dose: 0.5 mg Dextrose (D50w Syringe) 0 gm IV X1 PRN; Protocol PRN Reason: Hypoglycemia Duloxetine HCl (Cymbalta) 30 mg PO DAILY [facility] Last Admin: 11/28/18 11:22 Dose: 30 mg Enoxaparin Sodium (Lovenox) 30 mg SC DAILY@1000 [facility] Last Admin: 11/28/18 11:24 Dose: 30 mg Gabapentin (Neurontin) 300 mg PO DAILY PRN PRN PRN Reason: R FOOT Glucagon () 1 mg IM .X1 PRN PRN Reason: Hypoglycemia Sodium Chloride () 250 mls @ 15 mls/hr IV .[id number] PRN PRN Reason: SALINE FLUSH Lactated Ringer's () 1,000 mls @ 100 mls/hr IV .Q10H [facility] Last Admin: 11/28/18 08:21 Dose: 100 mls/hr Insulin Glargine (Lantus (Bkc)) 25 units SC DAILY [facility] Last Admin: 11/28/18 11:23 Dose: 25 units Insulin Human Lispro (Humalog Kwikpen (Bk)) 0 unit SQ ACHS [facility]; Protocol Last Admin: 11/28/18 16:24 Dose: 2 u Lamotrigine (Lamictal) 200 mg PO DAILY [facility] Last Admin: 11/28/18 11:22 Dose: 200 mg Lamotrigine (Lamictal) 400 mg PO QHS [facility] Last Admin: 11/27/18 21:03 Dose: 400 mg Levetiracetam (Keppra Tablet) 1,500 mg PO BID [facility] Last Admin: 11/28/18 11:21 Dose: 1,500 mg Levothyroxine Sodium (Synthroid) 175 mcg PO DAILY@0600 [facility] Last Admin: 11/28/18 05:44 Dose: 175 mcg Magnesium Hydroxide (Milk Of Magnesia) 30 ml PO DAILY PRN PRN PRN Reason: Constipation Pramipexole Dihydrochloride (Mirapex) 0.5 mg PO QHS [facility] Last Admin: 11/27/18 21:01 Dose: 0.5 mg Risperidone (Risperdal) 3 mg PO BREAKFAST [facility] Last Admin: 11/28/18 08:18 Dose: 3 mg Risperidone (Risperdal) 4 mg PO QHS [facility] Last Admin: 11/27/18 21:03 Dose: 4 mg Sodium Chloride () 5 - 15 ml IV UD PRN PRN Reason: SALINE FLUSH Last Admin: 11/25/18 05:17 Dose: 10 ml Throat Lozenges (Cepacol Sore Throat Lozenge) 1 lozenge MUCOUS MEM Q2H PRN PRN PRN Reason: SORE THROAT Last Admin: 11/27/18 21:11 Dose: 1 lozenge Medical Necessity - Tobacco Use Smoking Status: Never smoker Assessment/Plan All Active Problems MARQUIS (acute kidney injury) (Acute) Metatarsal fracture (Acute) 1. Rhabdomyolysis with acute kidney injury and an elevated troponin/hypotension(resolved)/lactic acidosis(resolved) -Lane is in place and he is making adequate urine now after a dose of Lasix in the ICU -CK on admission was greater than 24,000 now less than 7000 -Troponin is likely secondary to demand ischemia and muscle breakdown from his rhabdo -Plan for discharge tomorrow morning if his creatinine either remains the same or improves even more. -He is extremely positive I&O's, and nephrology changed him from normal saline to LR because of his bicarb decreasing, however his creatinine has risen now to 3.51 from 3.40 so unsure if we should be giving Lasix or continued IV fluids, will await evaluation by nephrology 2. Baseline MRDD/schizophrenia/bipolar disorder -Stable -Continue with risperidone 3. Hypothyroidism -Stable, TSH 2.25 -Continue with Synthroid 4. seizure disorder -Stable at the moment though unsure whether his fall was caused by a seizure -Continue with Keppra and Lamictal 5. IDDM 2 -Stable on his home regimen of Tresiba, transition to Lantus -Blood glucose stable continue with Accu-Cheks DVT: Lovenox Code Visit Inpatient E&M: 66745 Subs Hosp L2
[2018-11-28] MEDS: Furosemide 100 MG/10 ML Vial 60 MG IV (19:41)
[2018-11-28] MEDS: 0.9% NaCl Peripheral Flush Adult/Peds IV (19:41)
[2018-11-28] MEDS: Pramipexole Di-HCl 0.5 MG Tablet PO (22:34)
[2018-11-28] MEDS: RisperiDONE 2 MG Tablet 4 MG PO (22:34)
[2018-11-28] MEDS: lamoTRIgine 100 MG Tablet 400 MG PO (22:43)
[2018-11-28 22:51] LABS: Bedside Glucose 134 mg/dL (70-110)
[2018-11-29] VITALS (12 sets, daily range): BP systolic 135–148; BP diastolic 60–77; PULSE 69–111; RESP 16–20; TEMP 36.6–37.2; O2SAT 90–96
[2018-11-29] MEDS: Budesonide Respules 0.5 MG/2 ML AMPUL.NEB. INHALATION ×2 (06:43→18:47)
[2018-11-29] MEDS: Levothyroxine 175 MCG Tablet PO (06:47)
[2018-11-29 06:56] LABS: Bedside Glucose 120 mg/dL (70-110)
[2018-11-29 07:34] LABS: Anion Gap 10 (5-15); BUN 52 mg/dL (7-18); BUN/Creat Ratio 14.8 RATIO (10-20); Calcium,Total 7.9 mg/dL (8.5-10.1); Chloride 114 mmol/L (98-107); Creatinine, Serum 3.52 mg/dL (0.70-1.30); EST Glomerular Filtration Rate 19 mL/min (>60); Est Glom Filt Rate - Afr Amer 22 mL/min (>60); Glucose 112 mg/dL (74-106); Potassium 3.9 mmol/L (3.5-5.1); Sodium Level 142 mmol/L (136-145)
--- NOTE | 2018-11-29 08:00 | PN.CARD_ITS ---
Subjectve: Patient seen and evaluated. Had uneventful night. No cardiac concerns at this time. Objective: Vital Signs Temp Pulse Resp BP Pulse Ox 97.9 F 89 18 135/66 H 90 11/29/18 04:00 11/29/18 06:43 11/29/18 06:43 11/29/18 04:00 11/29/18 06:43 Oxygen Flow Rate (L/min) 2 Oxygen Delivery Method Room Air Weight: 286 lb 13.142 oz Body Mass Index (BMI) 31.1 Finger Stick Blood Glucose 145 Intake and Output for Last 24 Hours 11/27/18 11/28/18 11/29/18 22:59 23:59 23:59 Intake Total 300 / 300 Output Total 2850 / 2850 Balance -2550 / -2550 General: Awake, Alert, Oriented x 3 HEENT: PERRL, EOMI, Sclera Non Icteric, - - face bruised Oral: - Neck: Supple, Good ROM, No Lymph Node Enlargement Lungs: Clear to auscultation Cardiovascular: Regular Rhythm, Normal S1, Normal S2, No Murmurs, No Rubs, No Gallops Vascular: No Carotid Bruits, Normal Femoral Pulses, Normal Radial Pulses, Normal Dorsalis Pedal Pulse, Normal Posterior Tibial Pulses Abdomen: Bowel Sounds Present, Soft, Non Tender, No HSM, No Organomegaly Extremities: No Cyanosis, No Clubbing, No edema Musculoskeletal: No Erythema Skin: No Rashes Lymphatic: No Lymph Node Enlargement Neurological: No Focal Motor or Sensory Deficit Psych/Mental Status: Appropriate 11/28/18 08:05: Sodium 142, Potassium 3.9, Chloride 115 H, Carbon Dioxide 17.0 L , Anion Gap 10, BUN 46 H, Creatinine 3.51 H, Est GFR (MDRD) Af Amer 23 L, Est GFR (MDRD) Non-Af 19 L, BUN/Creatinine Ratio 13.1, Glucose 118 H, Calcium 7.8 L 11/29/18 06:55: Sodium 142, Potassium 3.9, Chloride 114 H, Carbon Dioxide 18.0 L , Anion Gap 10, BUN 52 H, Creatinine 3.52 H, Est GFR (MDRD) Af Amer 22 L, Est GFR (MDRD) Non-Af 19 L, BUN/Creatinine Ratio 14.8, Glucose 112 H, Calcium 7.9 L Rhythm: EKG: ECHO: Stress Test: Cardiac Cath: PCI: CT Surgery: Holter monitor: EPS: PPM: CXR: Chest CT Scan: Medical Necessity - Tobacco Use Smoking Status: Never smoker Assessment/Plan 68 y/o admitted after being found down in his house 1. Rhabdomyolysis due to fall * CPK was >24,000 * was hypotensive on admission as well. Unfortunately this has resulted in a decline in his renal function. His blood pressure however appears to be better at this time. * His creatinine is still rising though at a lower rate. He may need to be diuresed at some point. * * Echo to assess LV function--this demonstrated global reduction in ejection fraction estimated at 50% 2. Elevated troponins * initial troponin is 0.821; could be due to demand ischemia as his BP was in 50s systolic on admission * EKG showed no acute ST changes. * * * Aspirin 81 mg daily. * Further recommendations will depend on how he does and recovers from his rhabdomyolysis. * Thank you for allowing me to participate in the care of your patient. Please don't hesitate to call if any issues arise
[2018-11-29] MEDS: RisperiDONE 1 MG Tablet 3 MG PO (09:53)
[2018-11-29] MEDS: Aspirin 81 MG TAB.CHEW PO (09:53)
[2018-11-29] MEDS: Benztropine 2 MG Tablet 1 MG PO ×2 (09:54→22:40)
[2018-11-29] MEDS: DULoxetine Hcl 30 MG Capsule PO (09:54)
[2018-11-29] MEDS: levETIRAcetam 750 MG Tablet 1500 MG PO ×2 (09:54→22:41)
[2018-11-29] MEDS: Enoxaparin 30 MG/0.3 ML Syringe SC (09:55)
[2018-11-29] MEDS: BACITRACIN 15 GM Tube 1 APPLIC TOPICAL ×2 (10:00→22:38)
[2018-11-29 11:04] LABS: Magnesium 1.8 mg/dL (1.6-2.6); Phosphorus 3.9 mg/dL (2.5-4.9)
[2018-11-29] MEDS: lamoTRIgine 100 MG Tablet 200 MG PO (11:16)
[2018-11-29] MEDS: Insulin Lispro 100 UNIT/ML INSULN.PEN SQ ×2 (11:16→16:55)
[2018-11-29 11:36] LABS: Bedside Glucose 201 mg/dL (70-110)
--- NOTE | 2018-11-29 11:42 | PCM.PN.REN ---
Patient Problems: Active and Suspected Problems MARQUIS (acute kidney injury) (Acute) Subjective: Pt is doing well. No nausea No vomiting. No SOB Leg edema is better - Physical Exam General: Alert, Oriented x3 HEENT: EOMI Oral: Moist Mucosa Neck: Supple, No JVD Lungs: Clear to auscultation, Normal air movement, No rhonchi Cardiovascular: Regular rate, Regular Rhythm, Normal S1, Normal S2 Abdomen: Bowel Sounds Present, Passing Flatus, Distended Extremities: No clubbing, No cyanosis, Edema - trace edema Lymphatic: No Cervical, Supraclavicular, or Inguinal Adenopathy Neurological: Neuro grossly intact Psych/Mental Status: Appropriate Vital Signs Temp Pulse Resp BP Pulse Ox 99.0 F 89 18 148/60 H 92 11/29/18 08:30 11/29/18 08:30 11/29/18 08:30 11/29/18 08:30 11/29/18 08:30 Oxygen Flow Rate (L/min) 2 Oxygen Delivery Method Room Air Weight: 130.1 kg Body Mass Index (BMI) 31.1 Finger Stick Blood Glucose 145 Intake and Output for Last 24 Hours 11/27/18 11/28/18 11/29/18 22:59 23:59 23:59 Intake Total 300 / 300 Output Total 3250 / 3250 Balance -2950 / -2950 Microbiology Past 72 Hours 11/23/18 21:15 Blood Culture - Final Blood Culture (Wb) - Right Forearm No growth in 5 days. 11/23/18 21:10 Blood Culture - Final Blood Culture (Wb) - Right Hand No growth in 5 days. 11/24/18 11:40 Urine Culture - Final Urine Catheter - Lane Culture exhibits no growth. Laboratory Tests Past 24 Hrs 11/29/18 11/29/18 06:55 06:55 Sodium 142 Potassium 3.9 Chloride 114 H Carbon Dioxide 18.0 L Anion Gap 10 BUN 52 H Creatinine 3.52 H Estim Creat Clear Calc 25.00 Est GFR (MDRD) Af Amer 22 L Est GFR (MDRD) Non-Af 19 L BUN/Creatinine Ratio 14.8 Glucose 112 H Calcium 7.9 L Phosphorus 3.9 Magnesium 1.8 POC Glucose 11/29/18 11/29/18 11/28/18 11:12 06:48 22:31 POC Glucose 201 H 120 H 134 H 11/28/18 16:22 POC Glucose 160 H Medical Necessity - Tobacco Use Smoking Status: Never smoker Assessment/Plan All Active Problems MARQUIS (acute kidney injury) (Acute) Metatarsal fracture (Acute) 1. Acute kidney injury. Baseline SCr is 0.9 mg/dL. MARQUIS is 2/2 nephrotoxic ATN due to rhabdomyolysis. The pt is non-oliguric ( pt made 2.8 without diuretic), and SCr appears to have plateaued.Cr is stable at 3.5 mg/dL CPK level is decreasing.CPK level today id 1700 No fluid overload. No need for IVF No current need for dialysis. Continue to monitor renal function panel Avoid ACEI/ARB and IV contrast 2. Metabolic acidosis. HCO3 is stable. Likely due to MARQUIS No need for HCO3 replacement Monitor HCO3. 3. Rhabdomyolysis. CPK is trending down. off IVF. Last CPK level 1700 Renal team will continue to follow. please call with any question or concern David Joe MD [phone]
[2018-11-29] MEDS: Mag Hydrox/Al Hydrox/Simeth 30 ML UDC PO (12:33)
[2018-11-29] MEDS: Magnesium Oxide 400 MG Tablet PO ×2 (12:33→16:58)
--- NOTE | 2018-11-29 12:33 | PCM.PROGNOTE ---
<Adrian Reaves - Last Filed: 11/29/18 12:33> Patient Problems: Active and Suspected Problems MARQUIS (acute kidney injury) (Acute) Subjective: No complaints, resting comfortably semi tam NAD. No SOB/cp. No Abdominal pain, discomfort with dykes - denies having outpatient dykes. No diarrhea, nausea, vomiting. No fever/chills. - Physical Exam General: Alert, Oriented x3, Cooperative HEENT: Atraumatic, PERRLA, EOMI, Normocephalic Neck: Supple, No JVD, Negative Carotid Bruits Lungs: Clear to auscultation, Normal air movement Cardiovascular: Regular rate, No murmurs Abdomen: Bowel Sounds Present, Soft, Non Tender, Obese, - - dykes with clear yellow output. Extremities: No edema, Capillary Refill Less than 3 Seconds Skin: No rashes, No breakdown Musculoskeletal: No Tenderness to Palpation of Joints or Extremities Neurological: Cranial nerves II-XII grossly intact Psych/Mental Status: Normal Affect, Appropriate Vital Signs Temp Pulse Resp BP Pulse Ox 99.0 F 89 18 148/60 H 92 11/29/18 08:30 11/29/18 08:30 11/29/18 08:30 11/29/18 08:30 11/29/18 08:30 Oxygen Flow Rate (L/min) 2 Oxygen Delivery Method Room Air Weight: 286 lb 13.142 oz Body Mass Index (BMI) 31.1 Finger Stick Blood Glucose 145 Intake and Output for Last 24 Hours 11/27/18 11/28/18 11/29/18 22:59 23:59 23:59 Intake Total 300 / 300 Output Total 3250 / 3250 Balance -2950 / -2950 Microbiology Past 72 Hours 11/23/18 21:15 Blood Culture - Final Blood Culture (Wb) - Right Forearm No growth in 5 days. 11/23/18 21:10 Blood Culture - Final Blood Culture (Wb) - Right Hand No growth in 5 days. 11/24/18 11:40 Urine Culture - Final Urine Catheter - Dykes Culture exhibits no growth. Laboratory Tests Past 24 Hrs 11/29/18 11/29/18 06:55 06:55 Sodium 142 Potassium 3.9 Chloride 114 H Carbon Dioxide 18.0 L Anion Gap 10 BUN 52 H Creatinine 3.52 H Estim Creat Clear Calc 25.00 Est GFR (MDRD) Af Amer 22 L Est GFR (MDRD) Non-Af 19 L BUN/Creatinine Ratio 14.8 Glucose 112 H Calcium 7.9 L Phosphorus 3.9 Magnesium 1.8 POC Glucose 11/29/18 11/29/18 11/28/18 11:12 06:48 22:31 POC Glucose 201 H 120 H 134 H 11/28/18 16:22 POC Glucose 160 H Medical Necessity - Tobacco Use Smoking Status: Never smoker Assessment/Plan All Active Problems MARQUIS (acute kidney injury) (Acute) Metatarsal fracture (Acute) 1. MARQUIS 2/2 rhabdo, ATN - rhabdo resolving. Output good. Cr possibly peaking. Nephro following. Continue to monitor. 2. Rhabdo - resolving 3. Questionable seizure - hx seizures, found down unclear cirumstances, contributing to #2. No seizure activity here, continue keppra/lamictal 4. Hypothyroidism - synthroid. 5. IDDMt2 - continue current lantus. 6. MRDD/bipolar/schizophrenia - continue current therapy affect pleasant. DVT ppx: renal lovenox - trend platelets mild drop. DC planning: SNF when ok per nephrology. This patient was seen by Adrian Reaves PA-C under the supervision of Doctor Alison. <Tomás Rosas - Last Filed: 11/29/18 13:32> - Physical Exam Vital Signs Temp Pulse Resp BP Pulse Ox 99.0 F 89 18 148/60 H 92 11/29/18 08:30 11/29/18 08:30 11/29/18 08:30 11/29/18 08:30 11/29/18 08:30 Oxygen Flow Rate (L/min) 2 Oxygen Delivery Method Room Air Weight: 130.1 kg Body Mass Index (BMI) 31.1 Finger Stick Blood Glucose 145 Intake and Output for Last 24 Hours 11/27/18 11/28/18 11/29/18 22:59 23:59 23:59 Intake Total 300 / 300 Output Total 3250 / 3250 Balance -2950 / -2950 Microbiology Past 72 Hours 11/23/18 21:15 Blood Culture - Final Blood Culture (Wb) - Right Forearm No growth in 5 days. 11/23/18 21:10 Blood Culture - Final Blood Culture (Wb) - Right Hand No growth in 5 days. 11/24/18 11:40 Urine Culture - Final Urine Catheter - Dykes Culture exhibits no growth. Laboratory Tests Past 24 Hrs 11/29/18 11/29/18 06:55 06:55 Sodium 142 Potassium 3.9 Chloride 114 H Carbon Dioxide 18.0 L Anion Gap 10 BUN 52 H Creatinine 3.52 H Estim Creat Clear Calc 25.00 Est GFR (MDRD) Af Amer 22 L Est GFR (MDRD) Non-Af 19 L BUN/Creatinine Ratio 14.8 Glucose 112 H Calcium 7.9 L Phosphorus 3.9 Magnesium 1.8 POC Glucose 11/29/18 11/29/18 11/28/18 11:12 06:48 22:31 POC Glucose 201 H 120 H 134 H 11/28/18 16:22 POC Glucose 160 H Assessment/Plan This patient was seen in conjunction with Adrian Reaves PA-C . I have independently interviewed and examined the patient and reviewed pertinent historical, laboratory, and other data. Please refer to Adrian Reaves PA-C note for details of this patient's presentation, findings, and recommendations. I have reviewed Adrian Reaves PA-C note and concur with documented findings. In brief, patient is a 68-year-old gentleman admitted with acute kidney injury secondary to rhabdomyolysis patient kidney function continues to worsen despite optimal treatment. Consult has been placed to nephrology Case discussed with Dr. Joe Physical Examination: GENERAL: cooperative HEENT: Atraumatic; EYES; extraopion NECK; supple, normal thyroid, no distended JVD. RESPIRATORY: Diminished to auscultation bilaterally, CARDIOVASCULAR: Regular S1 S2, no audible murmurs GI: soft, non-tender, normoactive bowel sounds, PSYCH; Normal affect Assessment: 1. Acute kidney injury 2. Rhabdomyolysis 3. Questionable seizure 4. Diabetes mellitus type II 5. MRDD severity undetermined 6. Schizoaffective disorder 7. Hypothyroidism Recommendations: 1. I have discussed the results of my overview and impressions with the patient 2. Options for management were reviewed Code Visit Inpatient E&M: 14329 Subs Hosp L3
[2018-11-29] MEDS: Nystatin Powder 15gm Bottle 1 APPLIC TOPICAL ×2 (15:15→22:42)
[2018-11-29 17:20] LABS: Bedside Glucose 161 mg/dL (70-110)
[2018-11-29] MEDS: lamoTRIgine 100 MG Tablet 400 MG PO (22:41)
[2018-11-29] MEDS: Pramipexole Di-HCl 0.5 MG Tablet PO (22:42)
[2018-11-29] MEDS: RisperiDONE 2 MG Tablet 4 MG PO (22:43)
[2018-11-30] VITALS (7 sets, daily range): BP systolic 137–154; BP diastolic 72–84; PULSE 69–101; RESP 16–18; TEMP 36.4–37; O2SAT 92–99
[2018-11-30 00:46] LABS: Bedside Glucose 125 mg/dL (70-110)
[2018-11-30] MEDS: Nystatin Powder 15gm Bottle 1 APPLIC TOPICAL (05:51)
[2018-11-30] MEDS: Levothyroxine 175 MCG Tablet PO (05:52)
[2018-11-30 07:01] LABS: Bedside Glucose 90 mg/dL (70-110)
[2018-11-30 07:29] LABS: Anion Gap 10 (5-15); BUN 52 mg/dL (7-18); BUN/Creat Ratio 15.6 RATIO (10-20); Calcium,Total 8.3 mg/dL (8.5-10.1); Chloride 113 mmol/L (98-107); Creatinine, Serum 3.34 mg/dL (0.70-1.30); EST Glomerular Filtration Rate 20 mL/min (>60); Est Glom Filt Rate - Afr Amer 24 mL/min (>60); Estimated Creatinine Clearance 26.35 ml/min; Glucose 86 mg/dL (74-106); Potassium 3.9 mmol/L (3.5-5.1); Sodium Level 144 mmol/L (136-145)
[2018-11-30] MEDS: Budesonide Respules 0.5 MG/2 ML AMPUL.NEB. INHALATION (07:31)
--- NOTE | 2018-11-30 08:32 | PN.CARD_ITS ---
Subjectve: Patient seen and evaluated. He wants to go home. Objective: Vital Signs Temp Pulse Resp BP Pulse Ox 97.6 F L 84 18 137/72 H 92 11/30/18 04:00 11/30/18 07:01 11/30/18 04:00 11/30/18 04:00 11/30/18 04:00 Oxygen Flow Rate (L/min) 2 Oxygen Delivery Method Room Air Weight: 288 lb 5.834 oz Body Mass Index (BMI) 31.1 Finger Stick Blood Glucose 145 Intake and Output for Last 24 Hours 11/28/18 11/29/18 11/30/18 23:59 23:59 23:59 Intake Total 300 / 300 Output Total 4175 / 4175 450 / 450 Balance -3875 / -3875 -450 / -450 General: Awake, Alert, Oriented x 3 HEENT: PERRL, EOMI, Sclera Non Icteric Neck: Supple, Good ROM, No Lymph Node Enlargement Lungs: Clear to auscultation Cardiovascular: Regular Rhythm, Normal S1, Normal S2, No Murmurs, No Rubs, No Gallops Vascular: No Carotid Bruits, Normal Femoral Pulses, Normal Radial Pulses, Normal Dorsalis Pedal Pulse, Normal Posterior Tibial Pulses Abdomen: Bowel Sounds Present, Soft, Non Tender, No HSM, No Organomegaly Extremities: No Cyanosis, No Clubbing, Bilateral Edema +1 Neurological: No Focal Motor or Sensory Deficit 11/29/18 06:55: Phosphorus 3.9, Magnesium 1.8 11/30/18 06:50: Sodium 144, Potassium 3.9, Chloride 113 H, Carbon Dioxide 21.0, Anion Gap 10, BUN 52 H, Creatinine 3.34 H, Est GFR (MDRD) Af Amer 24 L, Est GFR (MDRD) Non-Af 20 L, BUN/Creatinine Ratio 15.6, Glucose 86, Calcium 8.3 L Rhythm: EKG: ECHO: Stress Test: Cardiac Cath: PCI: CT Surgery: Holter monitor: EPS: PPM: CXR: Chest CT Scan: Medical Necessity - Tobacco Use Smoking Status: Never smoker Assessment/Plan 68 y/o admitted after being found down in his house 1. Rhabdomyolysis due to fall * CPK was >24,000 * was hypotensive on admission as well. Unfortunately this has resulted in a decline in his renal function. His blood pressure however appears to be better at this time. * His creatinine is improving and it appears to have peaked. . * * Echo to assess LV function--this demonstrated global reduction in ejection fraction estimated at 50% 2. Elevated troponins * initial troponin is 0.821; could be due to demand ischemia as his BP was in 50s systolic on admission * EKG showed no acute ST changes. * * * Aspirin 81 mg daily. * Further recommendations will depend on how he does and recovers from his rhabdomyolysis. This point in time I doubt that we would perform any invasive management. * Thank you for allowing me to participate in the care of your patient. Please don't hesitate to call if any issues arise
[2018-11-30] MEDS: RisperiDONE 1 MG Tablet 3 MG PO (09:48)
[2018-11-30] MEDS: Benztropine 2 MG Tablet 1 MG PO (09:48)
[2018-11-30] MEDS: Magnesium Oxide 400 MG Tablet PO (09:48)
[2018-11-30] MEDS: Aspirin 81 MG TAB.CHEW PO (09:48)
[2018-11-30] MEDS: DULoxetine Hcl 30 MG Capsule PO (09:49)
[2018-11-30] MEDS: lamoTRIgine 100 MG Tablet 200 MG PO (09:49)
[2018-11-30] MEDS: levETIRAcetam 750 MG Tablet 1500 MG PO (09:49)
[2018-11-30] MEDS: Enoxaparin 30 MG/0.3 ML Syringe SC (09:50)
[2018-11-30] MEDS: BACITRACIN 15 GM Tube 1 APPLIC TOPICAL (09:50)
--- NOTE | 2018-11-30 10:35 | CASEMGMT ---
DONAVON spoke with patient as he is now saying he wants to go home. SW tried to explain to him he is not safe to go home as he cannot even walk. He said he is not happy. He said he has been here too long and wants to go home. DONAVON again told him he needs to go to [facility] for rehab before he can go home. He said Anand and Flavio can take care of him. DONAVON told him SW spoke to Anand and he has said they cannot care for him in this condition. DONAVON asked if he wanted SW to call Anand and he said yes. DONAVON called Anand and left him a voice mail. DONAVON also spoke with Nelly at [facility] and let her know patient will likely be coming today. Zofia LUCERO
--- NOTE | 2018-11-30 11:43 | TREXTCA.CO_ITS ---
- Diet 11/24/18 01:32 Diet: Cardiac/Low Cholesterol Food consistency:: Mechanical Soft/Ground Liquid Consistency:: Regular/Thin Dietary Modifications:: Mechanical Soft Diet Diet Comments: Supervision by staff / family; seated at 90 degrees - Routine Orders/Code Status Suppository Type: Dulcolax 10mg Suppository Frequency: Daily PRN Routine Lab Work: CBC - 5 days, BMP - 3 days Code Status: Full Code - Wound(s) bilateral knees Wound Type: Abrasion Face Wound Type: peeling skin Below L knee Wound Type: opened scab RIGHT KNEE Wound Type: Abrasion Left 2nd toe Wound Type: Abrasion R great and 2nd toe Wound Type: Abrasion - Therapies Physical Therapy: Eval and Treat Occupational Therapy: Eval and Treat - Problem/Diagnosis (1) MARQUIS (acute kidney injury) Status: Acute Current Visit: Yes (2) Rhabdomyolysis Status: Acute Current Visit: Yes (3) Seizure Status: Chronic Current Visit: Yes (4) Bipolar 1 disorder Status: Chronic Current Visit: Yes (5) Schizophrenia Status: Chronic Current Visit: Yes (6) BPH (benign prostatic hyperplasia) Status: Chronic Current Visit: No (7) Diabetes mellitus Status: Chronic Current Visit: No (8) Hyperlipidemia Status: Chronic Current Visit: No (9) Hypertension Status: Chronic Current Visit: No (10) Hypothyroidism Status: Chronic Current Visit: No - Allergies/Procedures Done in Hospital Allergies/Adverse Reactions: Allergies amoxicillin [Amoxicillin] Allergy (Verified 11/23/18 20:56) Unknown amoxicillin trihydrate [From Augmentin] Allergy (Verified 11/23/18 20:56) Other Penicillins Allergy (Verified 11/23/18 20:56) Unknown potassium clavulanate [From Augmentin] Allergy (Verified 11/23/18 20:56) Other SEASONAL Allergy (Uncoded 11/23/18 20:56) Unknown Procedures: None - Type of Care/Length of Stay Estimated LOS: Convalescent Care Less Than 30 days Type of Care Needed: Skilled Rehab Potential: Fair Prognosis: Fair - Additional Orders/Day of Discharge Day of Discharge: 11/30/18 - Dietary and Speech Recommendations Dietitian Recommendations/Changes: Rec diet change to CHO controlled, cardiac, low sodium diet w/ consistency rec by [employer]STRUMENT [employer]ER. - Follow Up Care Primary Care Physician: Matthias Obrien Chi, MD [Primary Care Provider] - Please follow up with your Primary Care Physician in: 2 weeks Please Follow Up With: Myesha Ko MD When: 1 week Please Follow Up With: Jose Smith MD When: 3-4 weeks
[2018-11-30] MEDS: Insulin Lispro 100 UNIT/ML INSULN.PEN SQ (12:01)
[2018-11-30 12:05] LABS: Bedside Glucose 153 mg/dL (70-110)
--- NOTE | 2018-11-30 12:12 | PHA.DC.MR ---
Pharmacy Service has performed discharge medication reconciliation for this patient upon transfer to [facility]. The patient's discharge medication list was reviewed for discrepancies and discrepancies were resolved. Home Medications Benztropine [Cogentin] 1 mg PO BID 02/21/14 Finasteride [Proscar] 5 mg PO DAILY 02/21/14 Fluticasone Propionate [Flovent Diskus] 1 sprays NARES BID 02/21/14 Lamotrigine [Lamictal] 200 mg PO DAILY 02/21/14 Levetiracetam [Keppra] 1,500 mg PO BID 02/21/14 Levothyroxine [Synthroid] 175 mcg PO DAILY 02/21/14 Risperidone [Risperdal] 3 mg PO BREAKFAST 02/21/14 Duloxetine HCl 30 mg PO DAILY 11/20/16 Lamotrigine 400 mg PO QHS 05/12/17 Gabapentin [Neurontin] 300 mg PO DAILY PRN PRN 02/03/18 Risperidone [Risperdal] 4 mg PO QHS 02/03/18 Ropinirole HCl [Requip] 1 mg PO QHS 02/03/18 Insulin Degludec [Tresiba Flextouch U-100] 25 unit SQ DAILY 11/23/18 Propylene Glycol/Peg 400/Pf [Systane 0.3-0.4% Eye Drop] 1 each OP TID 11/23/18 Acetaminophen [Tylenol Tablet] 650 mg PO Q6H PRN PRN tablet 11/30/18 Aspirin [Aspirin, Baby] 81 mg PO DAILY@0800 tab.chew 11/30/18 Bacitracin Ointment 1 applic TOPICAL BID tube 11/30/18 Magnesium Hydroxide [Milk Of Magnesia] 30 ml PO DAILY PRN PRN udc 11/30/18 Nystatin Powder [Mycostatin Powder] 1 applic TOPICAL TID bottle 11/30/18
--- NOTE | 2018-11-30 13:14 | CASEMGMT ---
Patient is ready for discharge. He is now saying he wants to go home. DONAVON explained to him it is unsafe for him to go home as he cannot even stand by himself. After numerous conversations he agreed to go. DONAVON faxed orders to [facility]. DONAVON called Nelly on her cell and left her a voice mail letting her know patient is being picked up at . RN notified. DONAVON also called [facility] and let medical secretary receptionist know and she will get orders to the nursing staff. DONAVON also called patient's counter caser at [facility] and let him know about d/c. DONAVON also called Simón Nunezcini and left him know. Plan: d/c to [facility] under skilled level of care on a convalescent stay. [facility] transported via cot. Zofia LUCERO
--- NOTE | 2018-11-30 13:52 | PCM.PN.REN ---
Patient Problems: Active and Suspected Problems MARQUIS (acute kidney injury) (Acute) Rhabdomyolysis (Acute) Subjective: Patient denies any nausea vomiting or shortness of breath No acute event - Physical Exam General: Alert, Oriented x3 HEENT: EOMI Oral: Moist Mucosa Neck: Supple, No JVD Lungs: Clear to auscultation, Normal air movement, No rhonchi, No wheeze Cardiovascular: Regular rate, Regular Rhythm, Normal S1 Abdomen: Bowel Sounds Present, Non Tender, Distended Extremities: No clubbing, No cyanosis, Edema - Trace edema of lower extremities Skin: No rashes Lymphatic: No Cervical, Supraclavicular, or Inguinal Adenopathy Neurological: Neuro grossly intact Psych/Mental Status: Appropriate Vital Signs Temp Pulse Resp BP Pulse Ox 98.6 F 101 H 16 146/83 H 99 11/30/18 09:45 11/30/18 11:00 11/30/18 09:45 11/30/18 09:45 11/30/18 09:45 Oxygen Flow Rate (L/min) 2 Oxygen Delivery Method Room Air Weight: 130.8 kg Body Mass Index (BMI) 31.1 Finger Stick Blood Glucose 145 Intake and Output for Last 24 Hours 11/28/18 11/29/18 11/30/18 23:59 23:59 23:59 Intake Total 300 / 300 Output Total 4175 / 4175 950 / 950 Balance -3875 / -3875 -950 / -950 Microbiology Past 72 Hours 11/23/18 21:15 Blood Culture - Final Blood Culture (Wb) - Right Forearm No growth in 5 days. 11/23/18 21:10 Blood Culture - Final Blood Culture (Wb) - Right Hand No growth in 5 days. Laboratory Tests Past 24 Hrs 11/30/18 06:50 Sodium 144 Potassium 3.9 Chloride 113 H Carbon Dioxide 21.0 Anion Gap 10 BUN 52 H Creatinine 3.34 H Estim Creat Clear Calc 26.35 Est GFR (MDRD) Af Amer 24 L Est GFR (MDRD) Non-Af 20 L BUN/Creatinine Ratio 15.6 Glucose 86 Calcium 8.3 L POC Glucose 11/30/18 11/30/18 11/29/18 11:57 06:52 22:36 POC Glucose 153 H 90 125 H 11/29/18 16:52 POC Glucose 161 H Medical Necessity - Tobacco Use Smoking Status: Never smoker Assessment/Plan All Active Problems MARQUIS (acute kidney injury) (Acute) Rhabdomyolysis (Acute) Metatarsal fracture (Acute) 1. Acute kidney injury. Baseline SCr is 0.9 mg/dL. MARQUIS is 2/2 nephrotoxic ATN due to rhabdomyolysis. Kidney function is improving. Creatinine plateaued at 3.5. Creatinine slightly better today 3.3 mg a deciliter. Patient is polyuric from ATN recovery. Patient made 4.1 L in the last 24-hour. I asked the patient to drink plenty of water. Please avoid diuretics .No fluid overload. No current need for dialysis. Continue to monitor renal function panel Avoid ACEI/ARB and IV contrast 2. Metabolic acidosis. HCO3 is stable. Recovered with kidney function improvement 3. Rhabdomyolysis. CPK is trending down. off IVF. Last CPK level 1700 Okay to discharge the patient to senior care facility from nephrology standpoint.please do BMP in 3 days Renal team will continue to follow. please call with any question or concern David Joe MD [phone]
--- NOTE | 2018-11-30 15:10 | PCM.DC.SUM ---
<Adrian Reaves - Last Filed: 11/30/18 15:10> Discharge Date and Diagnosis Date of Admission: 11/24/18 Date of Discharge: 11/30/18 - Primary Discharge Diagnosis Acute kidney injury secondary to acute rhabdomyolysis, acute tubular necrosis Questionable seizure activity at home Hypothyroidism IDDM type II MRDD, bipolar, schizophrenia Debility - Secondary Discharge Diagnosis Chronic Problems Bipolar 1 disorder (Chronic) Schizophrenia (Chronic) Seizure (Chronic) Prostatism (Chronic) Hypothyroidism (Chronic) Hyperlipidemia (Chronic) BPH (benign prostatic hyperplasia) (Chronic) Diabetes mellitus (Chronic) Hypertension (Chronic) Hospital Course and Treatment Imaging Results: CT/Brain/Head without Contrast IMPRESSION: No acute intracranial abnormality. Multiple subcentimeter radiodense foreign bodies noted in the right forehead, right cheek and right eye. CT/Spine Cervical without Contras IMPRESSION: No fracture or dislocation in the cervical spine. Bony fusion of C6/C7. RAD/Chest 1 View (Portable) IMPRESSION: Cardiomegaly. Clear lungs. Echocardiogram: EF 50%, mild global hypokinesis of the left ventricle Consults: Nephro Al Mendez Bakhouz Cardiology - [facility] [place] Operations: None Procedures: 2-D Echocardiogram Summary of Care Provided: Hospital course: The patient is a 68 year old M with past medical history of MRDD, history of seizure disorder, schizophrenia, bipolar disorder, type 2 diabetes, hypothyroidism who presented to the emergency room after being found down at his home by his home caregivers. Is brought to the emergency room appeared to have acute kidney injury and evidence of acute rhabdomyolysis. With his history of seizure disorders felt that he is very possible that he had had a seizure at home leading to him being down. His troponins were also elevated. Cardiology was consulted nephrology was consulted. He was given IV fluids and a Lane catheter replaced. Echocardiogram was obtained which did show mild global hypokinesis of the left ventricle, EKG was negative, he had no chest pain. Cardiology felt that his troponin elevation was secondary to his injury and rhabdomyolysis, no further workup was ordered at this time. Patient did not require dialysis while here. His rhabdomyolysis gradually improved. Initially his creatinine went down however did have a bump up before plateauing in the beginning to decrease again. He had excellent urinary output, was not oliguric. As he was found down at admission brain CT, CT of the cervical spine, chest x-ray obtained none of which had acute findings. Despite his recovery of his kidneys and rhabdomyolysis he continued to have ongoing significant debility. He worked with physical therapy and occupational therapy and was felt to require halfway at discharge. He was discharged to halfway in stable condition. He will follow-up with his PCP in 1-2 weeks, follow-up with nephrology in 1 week, and he should follow-up with cardiology in 3-4 weeks. He will need a BMP to reassess his renal function in 3 days. Also of note with his presentation of rhabdomyolysis and lactic acidosis his metformin was discontinued at discharge and should not be restarted. His statin was also held and will need to be continued to be held due to his rhabdo. This patient was seen by Adrian Reaves PA-C under the supervision of Doctor Rosas. [] - Physical Exam General: Alert, Oriented x3, Cooperative HEENT: Atraumatic, PERRLA, EOMI, Normocephalic Neck: Supple, No JVD, Negative Carotid Bruits Lungs: Clear to auscultation, Normal air movement Cardiovascular: Regular rate, No murmurs Abdomen: Bowel Sounds Present, Soft, Non Tender Extremities: No edema, Capillary Refill Less than 3 Seconds Skin: No rashes, No breakdown Musculoskeletal: No Tenderness to Palpation of Joints or Extremities Neurological: Cranial nerves II-XII grossly intact Psych/Mental Status: Normal Affect, Appropriate, Alert and oriented to time, place, person, mood and affect Vital Signs Temp Pulse Resp BP Pulse Ox 98.5 F 93 18 154/84 H 97 11/30/18 14:43 11/30/18 14:43 11/30/18 14:43 11/30/18 14:43 11/30/18 14:43 Oxygen Flow Rate (L/min) 2 Oxygen Delivery Method Room Air Weight: 288 lb 5.834 oz Body Mass Index (BMI) 31.1 Finger Stick Blood Glucose 145 Intake and Output for Last 24 Hours 11/28/18 11/29/18 11/30/18 23:59 23:59 23:59 Intake Total 300 / 300 Output Total 4175 / 4175 950 / 950 Balance -3875 / -3875 -950 / -950 Microbiology Past 72 Hours 11/23/18 21:15 Blood Culture - Final Blood Culture (Wb) - Right Forearm No growth in 5 days. 11/23/18 21:10 Blood Culture - Final Blood Culture (Wb) - Right Hand No growth in 5 days. Laboratory Tests Past 24 Hrs 11/30/18 06:50 Sodium 144 Potassium 3.9 Chloride 113 H Carbon Dioxide 21.0 Anion Gap 10 BUN 52 H Creatinine 3.34 H Estim Creat Clear Calc 26.35 Est GFR (MDRD) Af Amer 24 L Est GFR (MDRD) Non-Af 20 L BUN/Creatinine Ratio 15.6 Glucose 86 Calcium 8.3 L POC Glucose 11/30/18 11/30/18 11/29/18 11:57 06:52 22:36 POC Glucose 153 H 90 125 H 11/29/18 16:52 POC Glucose 161 H Discharge Diet: Low fat/ Low Cholesterol, 1800 Calorie Control Diet, 2000 mg Sodium Diet Discharge Activity: Return to Normal Activity Home Medications: Medications to take at Discharge Benztropine [Cogentin] 1 mg PO BID 02/21/14 Finasteride [Proscar] 5 mg PO DAILY 02/21/14 Fluticasone Propionate [Flovent Diskus] 1 sprays NARES BID 02/21/14 Lamotrigine [Lamictal] 200 mg PO DAILY 02/21/14 Levetiracetam [Keppra] 1,500 mg PO BID 02/21/14 Levothyroxine [Synthroid] 175 mcg PO DAILY 02/21/14 Risperidone [Risperdal] 3 mg PO BREAKFAST 02/21/14 Duloxetine HCl 30 mg PO DAILY 11/20/16 Lamotrigine 400 mg PO QHS 05/12/17 Gabapentin [Neurontin] 300 mg PO DAILY PRN PRN 02/03/18 Risperidone [Risperdal] 4 mg PO QHS 02/03/18 Ropinirole HCl [Requip] 1 mg PO QHS 02/03/18 Insulin Degludec [Tresiba Flextouch U-100] 25 unit SQ DAILY 11/23/18 Propylene Glycol/Peg 400/Pf [Systane 0.3-0.4% Eye Drop] 1 each OP TID 11/23/18 Acetaminophen [Tylenol Tablet] 650 mg PO Q6H PRN PRN tablet 11/30/18 Aspirin [Aspirin, Baby] 81 mg PO DAILY@0800 tab.chew 11/30/18 Bacitracin Ointment 1 applic TOPICAL BID tube 11/30/18 Magnesium Hydroxide [Milk Of Magnesia] 30 ml PO DAILY PRN PRN udc 11/30/18 Nystatin Powder [Mycostatin Powder] 1 applic TOPICAL TID bottle 11/30/18 Primary Care Physician: Matthias Obrien Chi, MD [Primary Care Provider] - Please follow up with your Primary Care Physician in: 2 weeks Please Follow Up With: Myesha Ko MD When: 1 week Please Follow Up With: Jose Smith MD When: 3-4 weeks Disposition: [facility] facility Minutes spent on discharge:: 35 Patient Condition:: Stable Medical Necessity - Tobacco Use Smoking Status: Never smoker Meaningful Use Info Meaningful Use Diagnoses (Choose all that apply): None applicable <Tomás Rosas - Last Filed: 11/30/18 15:30> Discharge Date and Diagnosis - Secondary Discharge Diagnosis Chronic Problems Bipolar 1 disorder (Chronic) Schizophrenia (Chronic) Seizure (Chronic) Prostatism (Chronic) Hypothyroidism (Chronic) Hyperlipidemia (Chronic) BPH (benign prostatic hyperplasia) (Chronic) Diabetes mellitus (Chronic) Hypertension (Chronic) Hospital Course and Treatment Summary of Care Provided: This patient was seen in conjunction with Adrian Reaves PA-C . I have independently interviewed and examined the patient and reviewed pertinent historical, laboratory, and other data. Please refer to Adrian Reaves PA-C note for details of this patient's presentation, findings, and recommendations. I have reviewed Adrian Reaves PA-C note and concur with documented findings. In brief, patient is a 68-year-old gentleman admitted with acute kidney injury secondary to rhabdomyolysis patient kidney function continues to worsen despite optimal treatment. Consult has been placed to nephrology Case discussed with Dr. Joe Assessment: 1. Acute kidney injury 2. Rhabdomyolysis 3. Questionable seizure 4. Diabetes mellitus type II 5. MRDD severity undetermined 6. Schizoaffective disorder 7. Hypothyroidism Hospital course as documented above by Adrian Reaves PA-C - Physical Exam Vital Signs Temp Pulse Resp BP Pulse Ox 98.5 F 93 18 154/84 H 97 11/30/18 14:43 11/30/18 14:43 11/30/18 14:43 11/30/18 14:43 11/30/18 14:43 Oxygen Flow Rate (L/min) 2 Oxygen Delivery Method Room Air Weight: 130.8 kg Body Mass Index (BMI) 31.1 Finger Stick Blood Glucose 145 Intake and Output for Last 24 Hours 11/28/18 11/29/18 11/30/18 23:59 23:59 23:59 Intake Total 300 / 300 Output Total 4175 / 4175 950 / 950 Balance -3875 / -3875 -950 / -950 Microbiology Past 72 Hours 11/23/18 21:15 Blood Culture - Final Blood Culture (Wb) - Right Forearm No growth in 5 days. 11/23/18 21:10 Blood Culture - Final Blood Culture (Wb) - Right Hand No growth in 5 days. Laboratory Tests Past 24 Hrs 11/30/18 06:50 Sodium 144 Potassium 3.9 Chloride 113 H Carbon Dioxide 21.0 Anion Gap 10 BUN 52 H Creatinine 3.34 H Estim Creat Clear Calc 26.35 Est GFR (MDRD) Af Amer 24 L Est GFR (MDRD) Non-Af 20 L BUN/Creatinine Ratio 15.6 Glucose 86 Calcium 8.3 L POC Glucose 11/30/18 11/30/18 11/29/18 11:57 06:52 22:36 POC Glucose 153 H 90 125 H 11/29/18 16:52 POC Glucose 161 H Code Visit Inpatient E&M: 05394 Disch Hosp
--- NOTE | 2018-11-30 15:15 | DS.PCM_ITS ---
<Adrian Reaves - Last Filed: 11/30/18 15:10> Discharge Date and Diagnosis Date of Admission: 11/24/18 Date of Discharge: 11/30/18 - Primary Discharge Diagnosis Acute kidney injury secondary to acute rhabdomyolysis, acute tubular necrosis Questionable seizure activity at home Hypothyroidism IDDM type II MRDD, bipolar, schizophrenia Debility - Secondary Discharge Diagnosis Chronic Problems Bipolar 1 disorder (Chronic) Schizophrenia (Chronic) Seizure (Chronic) Prostatism (Chronic) Hypothyroidism (Chronic) Hyperlipidemia (Chronic) BPH (benign prostatic hyperplasia) (Chronic) Diabetes mellitus (Chronic) Hypertension (Chronic) Hospital Course and Treatment Imaging Results: CT/Brain/Head without Contrast IMPRESSION: No acute intracranial abnormality. Multiple subcentimeter radiodense foreign bodies noted in the right forehead, right cheek and right eye. CT/Spine Cervical without Contras IMPRESSION: No fracture or dislocation in the cervical spine. Bony fusion of C6/C7. RAD/Chest 1 View (Portable) IMPRESSION: Cardiomegaly. Clear lungs. Echocardiogram: EF 50%, mild global hypokinesis of the left ventricle Consults: Nephro Al [facility] - [facility], [place] Operations: None Procedures: 2-D Echocardiogram Summary of Care Provided: Hospital course: The patient is a 68 year old M with past medical history of MRDD, history of seizure disorder, schizophrenia, bipolar disorder, type 2 diabetes, hypothyroidism who presented to the emergency room after being found down at his home by his home caregivers. Is brought to the emergency room appeared to have acute kidney injury and evidence of acute rhabdomyolysis. With his history of seizure disorders felt that he is very possible that he had had a seizure at home leading to him being down. His troponins were also elevated. Cardiology was consulted nephrology was consulted. He was given IV fluids and a Lane catheter replaced. Echocardiogram was obtained which did show mild global hypokinesis of the left ventricle, EKG was negative, he had no chest pain. Cardiology felt that his troponin elevation was secondary to his injury and rhabdomyolysis, no further workup was ordered at this time. Patient did not require dialysis while here. His rhabdomyolysis gradually improved. Initially his creatinine went down however did have a bump up before plateauing in the beginning to decrease again. He had excellent urinary output, was not oliguric. As he was found down at admission brain CT, CT of the cervical spine, chest x- ray obtained none of which had acute findings. Despite his recovery of his kidneys and rhabdomyolysis he continued to have ongoing significant debility. He worked with physical therapy and occupational therapy and was felt to require halfway at discharge. He was discharged to halfway in stable condition. He will follow-up with his PCP in 1-2 weeks, follow-up with nephrology in 1 week, and he should follow-up with cardiology in 3-4 weeks. He will need a BMP to reassess his renal function in 3 days. Also of note with his presentation of rhabdomyolysis and lactic acidosis his metformin was discontinued at discharge and should not be restarted. His statin was also held and will need to be continued to be held due to his rhabdo. This patient was seen by Adrian Reaves PA-C under the supervision of Doctor Rosas. [] - Physical Exam General: Alert, Oriented x3, Cooperative HEENT: Atraumatic, PERRLA, EOMI, Normocephalic Neck: Supple, No JVD, Negative Carotid Bruits Lungs: Clear to auscultation, Normal air movement Cardiovascular: Regular rate, No murmurs Abdomen: Bowel Sounds Present, Soft, Non Tender Extremities: No edema, Capillary Refill Less than 3 Seconds Skin: No rashes, No breakdown Musculoskeletal: No Tenderness to Palpation of Joints or Extremities Neurological: Cranial nerves II-XII grossly intact Psych/Mental Status: Normal Affect, Appropriate, Alert and oriented to time, place, person, mood and affect Vital Signs Temp Pulse Resp BP Pulse Ox 98.5 F 93 18 154/84 H 97 11/30/18 14:43 11/30/18 14:43 11/30/18 14:43 11/30/18 14:43 11/30/18 14:43 Oxygen Flow Rate (L/min) 2 Oxygen Delivery Method Room Air Weight: 288 lb 5.834 oz Body Mass Index (BMI) 31.1 Finger Stick Blood Glucose 145 Intake and Output for Last 24 Hours 11/28/18 11/29/18 11/30/18 23:59 23:59 23:59 Intake Total 300 / 300 Output Total 4175 / 4175 950 / 950 Balance -3875 / -3875 -950 / -950 Microbiology Past 72 Hours 11/23/18 21:15 Blood Culture - Final Blood Culture (Wb) - Right Forearm No growth in 5 days. 11/23/18 21:10 Blood Culture - Final Blood Culture (Wb) - Right Hand No growth in 5 days. Laboratory Tests Past 24 Hrs 11/30/18 06:50 Sodium 144 Potassium 3.9 Chloride 113 H Carbon Dioxide 21.0 Anion Gap 10 BUN 52 H Creatinine 3.34 H Estim Creat Clear Calc 26.35 Est GFR (MDRD) Af Amer 24 L Est GFR (MDRD) Non-Af 20 L BUN/Creatinine Ratio 15.6 Glucose 86 Calcium 8.3 L POC Glucose 11/30/18 11/30/18 11/29/18 11:57 06:52 22:36 POC Glucose 153 H 90 125 H 11/29/18 16:52 POC Glucose 161 H Discharge Diet: Low fat/ Low Cholesterol, 1800 Calorie Control Diet, 2000 mg Sodium Diet Discharge Activity: Return to Normal Activity Home Medications: Medications to take at Discharge Benztropine [Cogentin] 1 mg PO BID 02/21/14 Finasteride [Proscar] 5 mg PO DAILY 02/21/14 Fluticasone Propionate [Flovent Diskus] 1 sprays NARES BID 02/21/14 Lamotrigine [Lamictal] 200 mg PO DAILY 02/21/14 Levetiracetam [Keppra] 1,500 mg PO BID 02/21/14 Levothyroxine [Synthroid] 175 mcg PO DAILY 02/21/14 Risperidone [Risperdal] 3 mg PO BREAKFAST 02/21/14 Duloxetine HCl 30 mg PO DAILY 11/20/16 Lamotrigine 400 mg PO QHS 05/12/17 Gabapentin [Neurontin] 300 mg PO DAILY PRN PRN 02/03/18 Risperidone [Risperdal] 4 mg PO QHS 02/03/18 Ropinirole HCl [Requip] 1 mg PO QHS 02/03/18 Insulin Degludec [Tresiba Flextouch U-100] 25 unit SQ DAILY 11/23/18 Propylene Glycol/Peg 400/Pf [Systane 0.3-0.4% Eye Drop] 1 each OP TID 11/23/18 Acetaminophen [Tylenol Tablet] 650 mg PO Q6H PRN PRN tablet 11/30/18 Aspirin [Aspirin, Baby] 81 mg PO DAILY@0800 tab.chew 11/30/18 Bacitracin Ointment 1 applic TOPICAL BID tube 11/30/18 Magnesium Hydroxide [Milk Of Magnesia] 30 ml PO DAILY PRN PRN udc 11/30/18 Nystatin Powder [Mycostatin Powder] 1 applic TOPICAL TID bottle 11/30/18 Primary Care Physician: Matthias Obrien Chi, MD [Primary Care Provider] - Please follow up with your Primary Care Physician in: 2 weeks Please Follow Up With: Myesha Ko MD When: 1 week Please Follow Up With: Jose Smith MD When: 3-4 weeks Disposition: Longterm facility Minutes spent on discharge:: 35 Patient Condition:: Stable Medical Necessity - Tobacco Use Smoking Status: Never smoker Meaningful Use Info Meaningful Use Diagnoses (Choose all that apply): None applicable <Tomás Rosas - Last Filed: 11/30/18 15:30> Discharge Date and Diagnosis - Secondary Discharge Diagnosis Chronic Problems Bipolar 1 disorder (Chronic) Schizophrenia (Chronic) Seizure (Chronic) Prostatism (Chronic) Hypothyroidism (Chronic) Hyperlipidemia (Chronic) BPH (benign prostatic hyperplasia) (Chronic) Diabetes mellitus (Chronic) Hypertension (Chronic) Hospital Course and Treatment Summary of Care Provided: This patient was seen in conjunction with Adrian Reaves PA-C . I have in dependently interviewed and examined the patient and reviewed pertinent historical, laboratory, and other data. Please refer to Adrian Reaves PA-C note for details of this patient's presentation, findings, and recommendations. I have reviewed Adrian Reaves PA-C note and concur with documented findings. In brief, patient is a 68-year-old gentleman admitted with acute kidney injury secondary to rhabdomyolysis patient kidney function continues to worsen despite optimal treatment. Consult has been placed to nephrology Case discussed with Dr. Joe Assessment: 1. Acute kidney injury 2. Rhabdomyolysis 3. Questionable seizure 4. Diabetes mellitus type II 5. MRDD severity undetermined 6. Schizoaffective disorder 7. Hypothyroidism Hospital course as documented above by Adrian Reaves PA-C - Physical Exam Vital Signs Temp Pulse Resp BP Pulse Ox 98.5 F 93 18 154/84 H 97 11/30/18 14:43 11/30/18 14:43 11/30/18 14:43 11/30/18 14:43 11/30/18 14:43 Oxygen Flow Rate (L/min) 2 Oxygen Delivery Method Room Air Weight: 130.8 kg Body Mass Index (BMI) 31.1 Finger Stick Blood Glucose 145 Intake and Output for Last 24 Hours 11/28/18 11/29/18 11/30/18 23:59 23:59 23:59 Intake Total 300 / 300 Output Total 4175 / 4175 950 / 950 Balance -3875 / -3875 -950 / -950 Microbiology Past 72 Hours 11/23/18 21:15 Blood Culture - Final Blood Culture (Wb) - Right Forearm No growth in 5 days. 11/23/18 21:10 Blood Culture - Final Blood Culture (Wb) - Right Hand No growth in 5 days. Laboratory Tests Past 24 Hrs 11/30/18 06:50 Sodium 144 Potassium 3.9 Chloride 113 H Carbon Dioxide 21.0 Anion Gap 10 BUN 52 H Creatinine 3.34 H Estim Creat Clear Calc 26.35 Est GFR (MDRD) Af Amer 24 L Est GFR (MDRD) Non-Af 20 L BUN/Creatinine Ratio 15.6 Glucose 86 Calcium 8.3 L POC Glucose 11/30/18 11/30/18 11/29/18 11:57 06:52 22:36 POC Glucose 153 H 90 125 H 11/29/18 16:52 POC Glucose 161 H Code Visit Inpatient E&M: 85138 Disch Hosp
--- NOTE | 2018-12-03 10:00 | CASEMGMT ---
Meng Calvin, taxation agent from [facility] called and requested a copy of discharge instructions/summary. SW faxed this information. DIOGENES Terrell, [employer]
== END 2018-11-30 15:10 | disposition skilled nursing facility (03) | DRG 871 ==
LOC: ED 21:40 → ICU 11-24 00:22 → PCU 11-26 05:38
PROVIDERS: Family Medicine; Internal Medicine Critical Care Medicine; Physician Assistant; Admitting Provider Student in an Organized Health Care Education/Training Program; Emergency Provider Emergency Medicine; Family Provider Family Medicine Geriatric Medicine; PCP Family Medicine Geriatric Medicine; Visit Provider Internal Medicine
DX: R57.1 Hypovolemic shock (principal); N17.0 Acute kidney failure with tubular necrosis; E87.1 Hypo-osmolality and hyponatremia; M62.82 Rhabdomyolysis; E87.2 Acidosis; E78.5 Hyperlipidemia, unspecified; E03.9 Hypothyroidism, unspecified; N40.0 Benign prostatic hyperplasia without lower urinary tract symptoms; F20.9 Schizophrenia, unspecified; E11.9 Type 2 diabetes mellitus without complications; I10 Essential (primary) hypertension; R53.81 Other malaise; G40.909 Epilepsy, unspecified, not intractable, without status epilepticus; F31.9 Bipolar disorder, unspecified; W19.XXXA Unspecified fall, initial encounter; S80.212A Abrasion, left knee, initial encounter; S80.211A Abrasion, right knee, initial encounter; S20.319A Abrasion of unspecified front wall of thorax, initial encounter; Z79.4 Long term (current) use of insulin
CPT/HCPCS: 36415; 70450; 71045; 72125; 80048; 80061; 80076; 81001; 82550; 82962; 83605; 83735; 83930; 84100; 84439; 84443; 84484; 85025; 85610; 85730; 87040; 87086; 92507; 92526; 92610; 93005; 93306; 94640; 97110; 97162; 97167; 97530; 97802; 97803; 99285; J7030; J7120; Q9957; A4216; C8929; J1940